=== PATIENT | female | born 1970 | race Caucasian/White ===

== ENCOUNTER 2017-03-07 00:38 | Observation (INO) | payer BC ==
[2017-03-07] MEDS ORDERED: Sodium Chloride 0.9% 1000 ML 1,000 ML IV STA (01:04)
[2017-03-07] MEDS ORDERED: TORAdol 30 mg Injection IV ONE (01:04)
[2017-03-07] MEDS ORDERED: Zofran 4 MG/2 ML VIAL IV ONE (01:04)
[2017-03-07] MEDS ORDERED: TORAdol 30 mg Injection ONE (01:07)
[2017-03-07] MEDS ORDERED: Zofran 4 MG/2 ML VIAL ONE (01:07)
[2017-03-07] MEDS ORDERED: Sodium Chloride 0.9% 1000 ML 1,000 ML ONE (01:08)
--- NOTE | 2017-03-07 01:10 | ERPHSYRPT ---
- History of Present Illness Time Seen by Provider: 03/07/17 01:01 Historian: patient Exam Limitations: no limitations Patient Subjective Stated Complaint: pt states she has been having rt back and groin pain since around midnight. states she thinks shes passing a kidney stone. Triage Nursing Assessment: pt alert and oriented. answers questions approp. skin flushed, moist. respirations nonlabored. lungs cta. abd soft and nontender to palpation. bowel sounds present. no urine assessed at this time. Physician History: 46-year-old white female with history of kidney stones arrives with complaint of right flank pain and right-sided abdominal pain nausea symptoms since midnight she states she feels like she is having a kidney stone she has had a kidney stone in the past. Patient has not had any fever she has had some mild dysuria no hematuria. Past medical history includes , tubal ligation, hernia, D&C. Timing/Duration: today Activities at Onset: none Quality: sharpness Abdominal Pain Onset Location: RLQ, other (right flank) Pain Radiation: RLQ, other (right flank) Severity of Pain-Max: moderate Severity of Pain-Current: moderate Modifying Factors: Improves With: nothing Associated Symptoms: back (right flank pain), nausea, vomiting, No chest pain, No diaphoresis, No diarrhea, No fever/chills, No fatigue, No headache, No heartburn, No loss of appetite, No neck pain, No rash, No shortness of breath, No syncope, No weakness Previous symptoms: same symptoms as today (kidney stone in the past) Allergies/Adverse Reactions: No Known Drug Allergies Allergy (Verified 03/07/17 01:01) Home Medications: Acetaminophen/Pamabrom [Midol Caplet] 1 each PO UD PRN 05/18/14 [History] Hx Tetanus, Diphtheria Vaccination/Date Given: Yes Hx Influenza Vaccination/Date Given: No Hx Pneumococcal Vaccination/Date Given: No Immunizations Up to Date: Yes - Review of Systems Constitutional: No Fever, No Chills Eyes: No Symptoms Ears, Nose, & Throat: No Symptoms Respiratory: No Cough, No Dyspnea Cardiac: No Chest Pain, No Edema, No Syncope Abdominal/Gastrointestinal: Abdominal Pain (Right lateral lower abdominal pain) , Nausea, Vomiting, No Diarrhea, No Constipation, No Hematemesis, No Hematochezia Genitourinary Symptoms: Dysuria, Flank Pain (right flank pain), No Frequency, No Hematuria, No Hesitancy, No Incontinence, No Urgency, No Urinary Retention, No Menorrhagia, No , No Vaginal Bleeding, No Vaginal Discharge, No Vaginal Itching Musculoskeletal: No Back Pain, No Neck Pain Skin: No Rash Neurological: No Dizziness, No Focal Weakness, No Sensory Changes Psychological: No Symptoms Endocrine: No Symptoms All Other Systems: Reviewed and Negative - Past Medical History Pertinent Past Medical History: Yes Neurological History: No Pertinent History ENT History: No Pertinent History Cardiac History: No Pertinent History Respiratory History: No Pertinent History Endocrine Medical History: No Pertinent History Musculoskeletal History: Other GI Medical History: Hernia History: Other Psycho-Social History: No Pertinent History Female Reproductive Disorders: No Pertinent History Other Medical History: KIDNEY STONE, skin ca - Past Surgical History Past Surgical History: Yes Neuro Surgical History: No Pertinent History Cardiac: No Pertinent History Respiratory: No Pertinent History Gastrointestinal: No Pertinent History Genitourinary: Other Musculoskeletal: No Pertinent History Female Surgical History: Section, Tubal Ligation, Other Other Surgical History: HERNIA SURGERY, D/C,kidney stone, - Social History Smoking Status: Former smoker How long have you smoked: 30 yrs Exposure to second hand smoke: Yes Drug Use: none Patient Lives Alone: No - Female History Hx Last Menstrual Period: current Hx Now: No - Nursing Vital Signs Nursing Vital Signs: Initial Vital Signs Temperature 98.7 F Temperature Source Skin Pulse Rate 89 Respiratory Rate 24 Blood Pressure [] 132/79 Pain Intensity 10 - Physical Exam General Appearance: moderate distress, alert, other (well-developed well- nourished white female alert oriented 3) Eye Exam: PERRL/EOMI, eyes nml inspection Ears, Nose, Throat Exam: normal ENT inspection, pharynx normal, moist mucous membranes Neck Exam: normal inspection, non-tender, supple, full range of motion Respiratory Exam: normal breath sounds, lungs clear, No respiratory distress Cardiovascular Exam: regular rate/rhythm, normal heart sounds Gastrointestinal/Abdomen Exam: soft, normal bowel sounds, tenderness (slight right lateral abdominal tenderness lower), No distention, No mass, No guarding, No ecchymosis, No pulsatile mass, No rebound, No hernia, No hepatomegaly, No organomegaly, No splenomegaly, No bruit Back Exam: CVA tenderness (right flank pain with palpation) Extremity Exam: normal inspection, normal range of motion, pelvis stable Neurologic Exam: alert, oriented x 3, cooperative, normal mood/affect, nml cerebellar function, sensation nml, No motor deficits Skin Exam: normal color, warm, dry SpO2 Interpretation: normal (97%) SpO2: 97 Oxygen Delivery: Room Air - Course Nursing assessment & vital signs reviewed: Yes - CT Exams Abdomen/Pelvis CT Interpretation: Tele-radiologist Report, Other (CT abdomen and pelvis without contrast: 4 mm stone present in the distal right uretero vesicular junction, mild right hydronephrosis. Colonic diverticulosis without evidence of diverticulitis) Ordered Tests: Active Orders 24 hr Category Date Time Status IV Insertion STAT Care 03/07/17 00:47 Active ABDOMEN AND PELVIS W/0 CONTRAS [CT] Stat Exams 03/07/17 01:05 Taken CBC W DIFF Stat Lab 03/07/17 01:27 Completed CMP Stat Lab 03/07/17 01:27 Completed CULTURE,URINE Stat Lab 03/07/17 01:29 Received UA W/ MICROSCOPIC Stat Lab 03/07/17 01:29 Completed Medication Summary Generic Name Dose Route Start Last Admin Trade Name Freq PRN Reason Stop Dose Admin Promethazine HCl 12.5 mg 03/07/17 02:57 Phenergan 25 Mg Inj IV 03/07/17 02:58 STAT ONE Discontinued Medications Generic Name Dose Route Start Last Admin Trade Name Freq PRN Reason Stop Dose Admin Fentanyl Citrate 100 mcg 03/07/17 02:18 03/07/17 02:28 Sublimaze 100 Mcg/2 Ml IV 03/07/17 02:19 100 mcg STAT ONE Administration Fentanyl Citrate Confirm 03/07/17 02:28 Sublimaze 100 Mcg/2 Ml Administered 03/07/17 02:29 Dose 100 mcg .ROUTE .STK-MED ONE Sodium Chloride 1,000 mls @ 999 mls/hr 03/07/17 01:04 03/07/17 01:21 Sodium Chloride 0.9% 1000 Ml IV 03/07/17 02:04 999 mls/hr .Q1H1M STA Administration Sodium Chloride Confirm 03/07/17 01:08 Sodium Chloride 0.9% 1000 Ml Administered 03/07/17 01:09 Dose 1,000 mls @ ud .ROUTE .STK-MED ONE Ketorolac Tromethamine 30 mg 03/07/17 01:04 03/07/17 01:09 Toradol 30 Mg Injection IV 03/07/17 01:05 30 mg STAT ONE Administration Ketorolac Tromethamine Confirm 03/07/17 01:07 Toradol 30 Mg Injection Administered 03/07/17 01:08 Dose 30 mg .ROUTE .STK-MED ONE Ondansetron HCl 4 mg 03/07/17 01:04 03/07/17 01:09 Zofran 4 Mg/2 Ml Vial IV 03/07/17 01:05 4 mg STAT ONE Administration Ondansetron HCl Confirm 03/07/17 01:07 Zofran 4 Mg/2 Ml Vial Administered 03/07/17 01:08 Dose 4 mg .ROUTE .STK-MED ONE Lab/Rad Data: Laboratory Result Diagrams 03/07/17 01:27 03/07/17 01:27 Laboratory Results 03/07/17 03/07/17 03/07/17 Range/Units 01:29 01:27 01:27 WBC 9.0 (4.0-10.5) K/mm3 RBC 4.44 (4.1-5.4) M/mm3 Hgb 11.8 L (12.0-16.0) gm/dl Hct 37.8 (35-47) % MCV 85.1 (78-100) fl MCH 26.5 (26-32) pg MCHC 31.2 L (32-36) g/dl RDW 14.7 H (11.5-14.0) % Plt Count 312 (150-450) K/mm3 MPV 9.8 H (6-9.5) fl Gran % 67.1 H (36.0-66.0) % Lymphocytes % 22.8 L (24.0-44.0) % Monocytes % 7.5 (0.0-12.0) % Eosinophils % 2.3 (0.00-5.0) % Basophils % 0.3 (0.0-0.4) % Basophils # 0.03 (0-0.4) Sodium 142 (136-145) mEq/L Potassium 3.6 (3.5-5.1) mEq/L Chloride 106 (98-107) mEq/L Carbon Dioxide 24.7 (21-32) mEq/L Anion Gap 15.0 (5-15) MEQ/L BUN 11 (9-20) mg/dL Creatinine 0.87 (0.55-1.30) mg/dl Estimated GFR > 60 ML/MIN Glucose 107 (70-110) MG/DL Calcium 8.9 (8.5-10.1) mg/dL Total Bilirubin 0.1 L (0.2-1.0) mg/dL AST 18 (15-37) U/L ALT 31 (12-78) U/L Alkaline Phosphatase 120 H (46-116) U/L Serum Total Protein 6.7 (6.4-8.2) gm/dL Albumin 3.5 (3.4-5.0) g/dL Ur Collection Type CLEAN CATCH Urine Color YELLOW (YELLOW) Urine Appearance SLIGHTLY CLOUDY (CLEAR) Urine pH 5.0 (5-6) Ur Specific Clio >=1.030 (1.005-1.025) Urine Protein TRACE (Negative) Urine Glucose (UA) NEGATIVE (NEGATIVE) mg/dL Urine Ketones NEGATIVE (NEGATIVE) Urine Nitrite NEGATIVE (NEGATIVE) Urine Bilirubin NEGATIVE (NEGATIVE) Urine Urobilinogen 0.2 (0-1) mg/dL Urine WBC (Auto) NEGATIVE (NEGATIVE) Urine RBC (Auto) LARGE (0-5) Geovanny/ul Urine Microscopic RBC 25-50 (0-2) /HPF Urine Microscopic WBC 0-2 (0-5) /HPF Ur Epithelial Cells MODERATE (FEW) /HPF Urine Bacteria MODERATE (NEGATIVE) /HPF Urine Mucus MODERATE (NEGATIVE) /HPF Specimen Received 03/07/17 0130 - Progress Progress: improved Progress Note: 03/07/17 02:59 46-year-old white female patient of Dr. Morelos with complaint of pain in the right lateral lower abdomen and right flank since tonight Patient with a history kidney stones states the pain feels like a kidney stones plication with 25-50 red cells in her urine Patient also with a 4 mm stone present in the distal right ureter at the ureterovesicular junction with mild right hydronephrosis. As well as colonic diverticulosis without evidence of diverticulitis on CT scan. Patient is given Toradol 30 mg IV Zofran and 1 L of normal saline with improvement. However patient now is complaining of pain again in the right lower abdomen. CT of the abdomen shows a normal appendix. Patient has had a tubal ligation. Patient initially stated that morphine "makes me burn. Therefore I gave her fentanyl 100 mg IV. Patient feels like this is not improving her symptoms and is nauseous. Will add Phenergan as well. I have discussed the case with Dr. Wei, will place patient on observation diagnoses right flank right lower abdominal pain. Urolithiasis. Had discussed possible dialog at however when talking with the patient again patient stated that morphine "knocks me out" She really doesn't have any type of allergy to it. Will try morphine with this patient. Will place patient on observation IV fluids strain urine. - Departure Time of Disposition: 03:02 Departure Disposition: Observation Clinical Impression: Right flank pain, Right lower quadrant abdominal pain Urolithiasis Qualifiers: Urinary calculus location: ureter Qualified Code(s): N20.1 - Calculus of ureter Condition: Fair Critical Care Time: No
[2017-03-07 01:30] LABS: BASOPHIL % 0.3 % (0.0-0.4); Eosinophil % 2.3 % (0.00-5.0); Granulocytes % 67.1 % (36.0-66.0); Lymphocytes % 22.8 % (24.0-44.0); Mean Cell Volume 85.1 fl (78-100); Mean Platelet Volume 9.8 fl (6-9.5); Monocytes % 7.5 % (0.0-12.0); Platelet Count 312 K/mm3 (150-450); Red Blood Count 4.44 M/mm3 (4.1-5.4); Red Cell Distribution Width 14.7 % (11.5-14.0)
[2017-03-07 01:31] LABS: Mean Corpuscular Hemoglobin 26.5 pg (26-32)
[2017-03-07 01:46] LABS: ADD URINE CULTURE? YES (NO); Bacteria MODERATE /HPF (NEGATIVE); COMPLETE URINE MICROSCOPIC? YES; Collection Type CLEAN CATCH; Epithelial Cells MODERATE /HPF (FEW); Mucus MODERATE /HPF (NEGATIVE); WBC 0-2 /HPF (0-5)
[2017-03-07 01:53] LABS: ALBUMIN 3.5 g/dL (3.4-5.0); ALKALINE PHOSPHATASE 120 U/L (46-116); BILIRUBIN,TOTAL 0.1 mg/dL (0.2-1.0); BLOOD UREA NITROGEN 11 mg/dL (9-20); CHLORIDE 106 mEq/L (98-107); Carbon Dioxide 24.7 mEq/L (21-32); Glucose 107 MG/DL (70-110); Potassium 3.6 mEq/L (3.5-5.1); SGOT/AST 18 U/L (15-37); SGPT/ALT 31 U/L (12-78); SODIUM 142 mEq/L (136-145); Total Protein 6.7 gm/dL (6.4-8.2)
[2017-03-07] MEDS ORDERED: SUBLIMAZE 100 MCG/2 ML IV ONE (02:18)
[2017-03-07] MEDS ORDERED: SUBLIMAZE 100 MCG/2 ML ONE (02:28)
[2017-03-07] MEDS ORDERED: Phenergan 25 MG INJ IV ONE (02:57)
[2017-03-07] MEDS ORDERED: Flomax 0.4 MG PO STA (02:58)
[2017-03-07] MEDS ORDERED: MORPHINE SULFATE 4 MG INJ IV ONE (03:04)
[2017-03-07] MEDS ORDERED: Flomax 0.4 MG ONE (03:08)
[2017-03-07] MEDS ORDERED: Phenergan 25 MG INJ ONE (03:08)
[2017-03-07] MEDS ORDERED: MORPHINE SULFATE 4 MG INJ ONE (03:08)
[2017-03-07] MEDS ORDERED: MORPHINE SULFATE 4 MG INJ IV PRN (03:40)
[2017-03-07] MEDS ORDERED: Zofran 4 MG/2 ML VIAL IV PRN (03:40)
[2017-03-07] MEDS: Sodium Chloride 0.9% 1000 ML 1,000 ML IV SCH ×3 (04:35→22:05)
[2017-03-07 06:33] LABS: ALBUMIN 3.3 g/dL (3.4-5.0); ALKALINE PHOSPHATASE 107 U/L (46-116); ANION GAP 13.3 MEQ/L (5-15); BILIRUBIN,TOTAL 0.2 mg/dL (0.2-1.0); BLOOD UREA NITROGEN 11 mg/dL (9-20); CHLORIDE 107 mEq/L (98-107); Carbon Dioxide 24.7 mEq/L (21-32); Glucose 121 MG/DL (70-110); Potassium 4.1 mEq/L (3.5-5.1); SGOT/AST 20 U/L (15-37); SGPT/ALT 29 U/L (12-78); SODIUM 141 mEq/L (136-145); Total Protein 6.2 gm/dL (6.4-8.2)
[2017-03-07 06:41] LABS: BASOPHIL % 0.2 % (0.0-0.4); Eosinophil % 0.7 % (0.00-5.0); Granulocytes % 78.1 % (36.0-66.0); Lymphocytes % 15.2 % (24.0-44.0); Mean Corpuscular Hemoglobin 26.3 pg (26-32); Mean Platelet Volume 10.2 fl (6-9.5); Monocytes % 5.8 % (0.0-12.0); Platelet Count 309 K/mm3 (150-450); Red Blood Count 4.29 M/mm3 (4.1-5.4); Red Cell Distribution Width 14.7 % (11.5-14.0); White Blood Count 12.7 K/mm3 (4.0-10.5)
--- NOTE | 2017-03-07 09:02 | PCM.HP ---
History of Present Illness - Chief Complaint Chief Complaint: right flank pain History of Present Illness: is a 46 year old female who presented to the ER last night with right flank and right lower abdominal pain, came on suddenly. Sharp and severe pain with associated nausea, no bowel changes, has a hx of kidney stones with similar symptoms in the past. CT confirmed 4mm rt UVJ stone. - Review of Systems Constitutional: No Fever, No Chills Respiratory: No Cough, No Short Of Breath Cardiac: No Chest Pain, No Edema, No Syncope Abdominal/Gastrointestinal: Abdominal Pain Musculoskeletal: Back Pain Skin: No Rash Neurological: No Dizziness, No Focal Weakness, No Sensory Changes All Other Systems: Reviewed and Negative Medications & Allergies Home Medications: Home Medication List Acetaminophen/Pamabrom [Midol Caplet] 1 each PO UD PRN 05/18/14 [History Confirmed 03/07/17] Allergies/Adverse Reactions: Allergies Allergy/AdvReac Type Severity Reaction Status Date / Time No Known Drug Allergies Allergy Verified 03/07/17 01:01 - Past Medical History Past Medical History: Yes Neurological History: No Pertinent History ENT History: No Pertinent History Cardiac History: No Pertinent History Respiratory History: No Pertinent History Endocrine Medical History: No Pertinent History Musculoskelatal History: Other GI Medical History: Hernia History: Other Pyscho-Social History: No Pertinent History Reproductive Disorders: No Pertinent History Comment: KIDNEY STONE, skin ca - Female History Hx Last Menstrual Period: current Are you now?: No - Past Surgical History Past Surgical History: Yes Neuro Surgical History: No Pertinent History Cardiac History: No Pertinent History Respiratory Surgery: No Pertinent History GI Surgical History: No Pertinent History Genitourinary Surgical Hx: Other Musculskeletal Surgical Hx: No Pertinent History Female Surgical History: Section, Tubal Ligation, Other Other Surgical History: HERNIA SURGERY, D/C,kidney stone, - Social History Smoking Status: Never smoker How long have you smoked: 30 yrs Exposure to second hand smoke: No Alcohol: Occasionally Drug Use: none - Physical Exam Vital Signs: Vital Signs - 24 hr Temp Pulse Resp BP Pulse Ox 03/07/17 07:13 98.4 F 89 18 138/81 93 L 03/07/17 03:56 96 03/07/17 03:39 98.7 F 82 16 137/65 95 03/07/17 03:09 74 16 122/73 98 03/07/17 03:03 97 03/07/17 00:40 98.7 F 89 24 132/79 97 General Appearance: no apparent distress, alert Neurologic Exam: alert, oriented x 3, cooperative, normal mood/affect, nml cerebellar function, nml station & gait, sensation nml, No motor deficits Eye Exam: PERRL/EOMI, eyes nml inspection Respiratory Exam: normal breath sounds, lungs clear, No respiratory distress Cardiovascular Exam: regular rate/rhythm, normal heart sounds, normal peripheral pulses Gastrointestinal/Abdomen Exam: soft, normal bowel sounds, No tenderness, No mass Back Exam: normal inspection Extremity Exam: normal inspection, normal range of motion, pelvis stable Skin Exam: normal color, warm, dry, No rash Results - Labs Lab/Micro Results: Lab Results-Last 24 Hours 03/07/17 03/07/17 Range/Units 05:45 05:45 WBC 12.7 H (4.0-10.5) K/mm3 RBC 4.29 (4.1-5.4) M/mm3 Hgb 11.3 L (12.0-16.0) gm/dl Hct 36.9 (35-47) % MCV 86.0 (78-100) fl MCH 26.3 (26-32) pg MCHC 30.6 L (32-36) g/dl RDW 14.7 H (11.5-14.0) % Plt Count 309 (150-450) K/mm3 MPV 10.2 H (6-9.5) fl Gran % 78.1 H (36.0-66.0) % Lymphocytes % 15.2 L (24.0-44.0) % Monocytes % 5.8 (0.0-12.0) % Eosinophils % 0.7 (0.00-5.0) % Basophils % 0.2 (0.0-0.4) % Basophils # 0.03 (0-0.4) Sodium 141 (136-145) mEq/L Potassium 4.1 (3.5-5.1) mEq/L Chloride 107 (98-107) mEq/L Carbon Dioxide 24.7 (21-32) mEq/L Anion Gap 13.3 (5-15) MEQ/L BUN 11 (9-20) mg/dL Creatinine 0.95 (0.55-1.30) mg/dl Estimated GFR > 60 ML/MIN Glucose 121 H (70-110) MG/DL Calcium 8.4 L (8.5-10.1) mg/dL Total Bilirubin 0.2 (0.2-1.0) mg/dL AST 20 (15-37) U/L ALT 29 (12-78) U/L Alkaline Phosphatase 107 (46-116) U/L Serum Total Protein 6.2 L (6.4-8.2) gm/dL Albumin 3.3 L (3.4-5.0) g/dL Assessment/Plan (1) Ureteral stone with hydronephrosis Current Visit: Yes Status: Acute Assessment & Plan: continue IV fluids, pain and nausea not well controlled. change to dilaudid and phenergan, try toradol prn as well Code(s): N13.2 - HYDRONEPHROSIS WITH RENAL AND URETERAL CALCULOUS OBSTRUCTION
[2017-03-07] MEDS: Phenergan 25 MG INJ IV PRN ×3 (09:14→19:34)
[2017-03-07] MEDS: TORAdol 30 mg Injection IV PRN (09:15)
--- NOTE | 2017-03-07 09:44 | XRAY ---
Indication: Right flank pain. Nausea and vomiting. Multiple contiguous axial images obtained through the abdomen and pelvis without contrast using renal stone protocol. Comparison: June 16, 2013. Lung bases demonstrates minimal right middle lobe and inferior lingular atelectasis/scarring. Heart is not enlarged. Stable small hiatal hernia. New 3-4 mm right UVJ calculus. More proximal right ureter is slightly prominent along with mild hydronephrosis consistent with partial obstructive uropathy. There remains a few bilateral renal micro-calculi, largest on the right measuring 5-6 mm. Noncontrasted stomach and bowel loops appear nonobstructed. Normal appendix. Minimal descending diverticulosis. Again cervical nabothian cysts and calcified uterine fibroid. Liver remains diffusely fatty with again 2 hepatic cysts. The larger cyst in the right lobe has slightly increased in size today measuring 2 cm. Stable punctate left adrenal calcification. Remaining liver, gallbladder, pancreas, spleen, adrenal glands, kidneys, ureters, bladder, and aorta appear unremarkable for noncontrast exam. Osseous structures intact. Stable small fatty umbilical hernia. Impression: 1. New 3-4 mm right UVJ calculus producing partial obstruction as detailed. Additional bilateral renal micro-calculi. 2. Again 2 hepatic cysts. Right lobe cyst slightly larger. 3. Stable hiatal hernia, fatty liver, colonic diverticulosis, benign punctate left adrenal calcification, cervical nabothian cysts, calcified uterine fibroid, and small fatty umbilical hernia. Comment: Preliminary interpretation was made by [facility]. No critical discrepancy. CT DI 28.13
[2017-03-07] MEDS: DILAUDID 2 MG INJECTION IV PRN ×2 (13:55→19:35)
[2017-03-08] MEDS: DILAUDID 2 MG INJECTION IV PRN ×2 (03:45→10:36)
[2017-03-08] MEDS: Sodium Chloride 0.9% 1000 ML 1,000 ML IV SCH (06:01)
[2017-03-08 06:15] LABS: BASOPHIL % 0.3 % (0.0-0.4); Eosinophil % 0.7 % (0.00-5.0); Granulocytes % 74.3 % (36.0-66.0); Lymphocytes % 16.1 % (24.0-44.0); Mean Cell Volume 85.8 fl (78-100); Mean Corpuscular Hemoglobin 26.5 pg (26-32); Mean Platelet Volume 9.8 fl (6-9.5); Monocytes % 8.6 % (0.0-12.0); Platelet Count 257 K/mm3 (150-450); Red Blood Count 3.81 M/mm3 (4.1-5.4); Red Cell Distribution Width 14.5 % (11.5-14.0); White Blood Count 11.1 K/mm3 (4.0-10.5)
[2017-03-08 06:48] LABS: ALBUMIN 2.7 g/dL (3.4-5.0); ANION GAP 11.8 MEQ/L (5-15); BILIRUBIN,TOTAL 0.2 mg/dL (0.2-1.0); Carbon Dioxide 23.2 mEq/L (21-32); Potassium 3.9 mEq/L (3.5-5.1); Total Protein 5.6 gm/dL (6.4-8.2)
--- NOTE | 2017-03-08 07:59 | PCM.NOTE ---
Date and Time: 03/08/17 0757 Subjective Assessment: patient still having significant flank pain and right lower abdomen pain, has not passed a stone Objective Exam General Appearance: no apparent distress, alert Respiratory Exam: normal breath sounds, lungs clear, No respiratory distress Cardiovascular Exam: regular rate/rhythm, normal heart sounds Gastrointestinal/Abdomen Exam: soft, No tenderness, No mass Extremity Exam: normal inspection, normal range of motion OBJECTIVE DATA Vital Signs: Vital Signs - 24 hr Temp Pulse Resp BP Pulse Ox 03/08/17 07:33 99.2 F 84 20 167/77 90 L 03/08/17 04:05 98.8 F 88 14 137/75 93 L 03/08/17 00:00 98.4 F 85 14 136/64 93 L 03/07/17 20:10 98.5 F 84 14 132/72 96 03/07/17 16:23 98.7 F 83 20 115/65 95 03/07/17 12:00 98.5 F 88 18 147/75 92 L Pain Assessment - Last Documented Pain Intensity 6 Pain Scale Used 0-10 Pain Scale Intake and Output: Intake & Output 03/05/17 03/06/17 03/07/17 03/08/17 11:59 11:59 11:59 11:59 Intake Total 3316 Output Total 250 350 Balance -250 2966 Weight 99.881 kg Lab Results: Lab Results-Last 24 Hours 03/08/17 03/08/17 Range/Units 05:20 05:20 WBC 11.1 H (4.0-10.5) K/mm3 RBC 3.81 L (4.1-5.4) M/mm3 Hgb 10.1 L (12.0-16.0) gm/dl Hct 32.7 L (35-47) % MCV 85.8 (78-100) fl MCH 26.5 (26-32) pg MCHC 30.9 L (32-36) g/dl RDW 14.5 H (11.5-14.0) % Plt Count 257 (150-450) K/mm3 MPV 9.8 H (6-9.5) fl Gran % 74.3 H (36.0-66.0) % Lymphocytes % 16.1 L (24.0-44.0) % Monocytes % 8.6 (0.0-12.0) % Eosinophils % 0.7 (0.00-5.0) % Basophils % 0.3 (0.0-0.4) % Basophils # 0.03 (0-0.4) Sodium 138 (136-145) mEq/L Potassium 3.9 (3.5-5.1) mEq/L Chloride 107 (98-107) mEq/L Carbon Dioxide 23.2 (21-32) mEq/L Anion Gap 11.8 (5-15) MEQ/L BUN 10 (9-20) mg/dL Creatinine 1.10 (0.55-1.30) mg/dl Estimated GFR 56 ML/MIN Glucose 100 (70-110) MG/DL Calcium 8.0 L (8.5-10.1) mg/dL Total Bilirubin 0.20 (0.2-1.0) mg/dL AST 15 (15-37) U/L ALT 22 (12-78) U/L Alkaline Phosphatase 98 (46-116) U/L Serum Total Protein 5.6 L (6.4-8.2) gm/dL Albumin 2.7 L (3.4-5.0) g/dL Assessment/Plan (1) Ureteral stone with hydronephrosis Current Visit: Yes Status: Acute Assessment & Plan: continues to have pain and significant nausea, will consult with urology Code(s): N13.2 - HYDRONEPHROSIS WITH RENAL AND URETERAL CALCULOUS OBSTRUCTION
[2017-03-08] MEDS: Phenergan 25 MG INJ IV PRN (09:50)
[2017-03-08] MEDS: TORAdol 30 mg Injection IV PRN (09:51)
[2017-03-08 16:25] VITALS: BP 135/69; PULSE 77; O2SAT 94
[2017-03-08 20:56] LABS: Calculi Composition See Result Note:
== END 2017-03-08 16:37 | disposition short-term general hospital (02) ==
LOC: ED 00:38 → MED SURG 03:38
PROVIDERS: ADMIT Family Medicine; ATTEND Family Medicine
DX: N13.2 Hydronephrosis with renal and ureteral calculous obstruction (principal); Z87.442 Personal history of urinary calculi; Z85.828 Personal history of other malignant neoplasm of skin
CPT/HCPCS: 36000; 36415; 74176; 80053; 81000; 82360; 85025; 87086; 94760; 96360; 96365; 96367; 96374; 96375; 99285; G0378; J1170; J1885; J2270; J2405; J2550; J3010; A9270-GY

== ENCOUNTER 2017-03-11 01:34 | Emergency (ER) | payer BC ==
[2017-03-11] MEDS ORDERED: Phenergan 25 MG INJ IV ONE (01:57)
[2017-03-11] MEDS ORDERED: TORAdol 30 mg Injection IV ONE (01:57)
[2017-03-11] MEDS ORDERED: Sodium Chloride 0.9% 1000 ML 1,000 ML IV STA (01:57)
--- NOTE | 2017-03-11 02:05 | ERPHSYRPT ---
- History of Present Illness Time Seen by Provider: 03/11/17 01:48 Historian: patient Exam Limitations: no limitations Patient Subjective Stated Complaint: pt was admitted here last sunday and then [facility] dr pelayo remved a stone and placed a stent - the stent came out sunday and the pt went to the reg for pain control and then tonight the pain is back and she is vomiting and can't keep her pain meds down - she states there is some blood on the tissue when she wipes unknown if fever pain is in the center of lower back Triage Nursing Assessment: pt is awake and alert and able to answer questions moaning at times with the pain Physician History: FOR THE PAST 5 HOURS PT HAS HAD RIGHT FLANK PAIN, VOMITING X8, SORE THROAT, SUBJECTIVE FEVER, CHILLS AND DIAPHORESIS; FOR ABOUT THE PAST HOUR CHEST PAIN AND SHORTNESS OF AIR. 5 DAYS AGO PT STARTED WITH RIGHT RENAL COLIC. AT [facility] DR PELAYO REMOVED THE STONE AND PLACED A STENT. PT ACCIDENTALLY PULLED THE STENT OUT 2 DAYS AGO. Allergies/Adverse Reactions: No Known Drug Allergies Allergy (Verified 03/07/17 01:01) Home Medications: Levofloxacin [Levaquin] 0 mg DAILY 03/11/17 [History] Hx Tetanus, Diphtheria Vaccination/Date Given: Yes Hx Influenza Vaccination/Date Given: No Hx Pneumococcal Vaccination/Date Given: No - Review of Systems Constitutional: Fever, Chills Ears, Nose, & Throat: Throat Pain Respiratory: Dyspnea Cardiac: Chest Pain Abdominal/Gastrointestinal: Vomiting, Other (RIGHT FLANK PAIN) Endocrine: Excessive Sweating All Other Systems: Reviewed and Negative - Past Medical History Pertinent Past Medical History: Yes Neurological History: No Pertinent History ENT History: No Pertinent History Cardiac History: No Pertinent History Respiratory History: No Pertinent History Endocrine Medical History: No Pertinent History Musculoskeletal History: Other GI Medical History: Hernia History: Other Psycho-Social History: No Pertinent History Female Reproductive Disorders: No Pertinent History Other Medical History: KIDNEY STONE, skin ca - Past Surgical History Past Surgical History: Yes Neuro Surgical History: No Pertinent History Cardiac: No Pertinent History Respiratory: No Pertinent History Gastrointestinal: No Pertinent History Genitourinary: Other Musculoskeletal: No Pertinent History Female Surgical History: Section, Tubal Ligation, Other Other Surgical History: HERNIA SURGERY, D/C,kidney stone, - Social History Smoking Status: Never smoker How long have you smoked: 30 yrs Exposure to second hand smoke: No Drug Use: none Patient Lives Alone: No - Female History Hx Last Menstrual Period: unknown Hx Now: No - Nursing Vital Signs Nursing Vital Signs: Initial Vital Signs Temperature 99 F Temperature Source Oral Pulse Rate 68 Respiratory Rate 16 Blood Pressure [Right Arm] 118/78 Pain Intensity 5 - Physical Exam General Appearance: alert Eye Exam: PERRL/EOMI Ears, Nose, Throat Exam: pharynx normal, moist mucous membranes Neck Exam: normal inspection Respiratory Exam: lungs clear Cardiovascular Exam: normal heart sounds Gastrointestinal/Abdomen Exam: soft, normal bowel sounds Back Exam: normal inspection Extremity Exam: normal inspection, No pedal edema Neurologic Exam: alert, cooperative Skin Exam: warm, dry SpO2 Interpretation: normal SpO2: 99 Oxygen Delivery: Room Air - Course Nursing assessment & vital signs reviewed: Yes EKG Interpreted by Me: RATE (72), Sinus Rhythm, NORMAL AXIS, NORMAL INTERVALS - Radiology Exams Chest X-ray Interpretation: Interpreted by me, No Pneumonia - CT Exams Abdomen/Pelvis CT Interpretation: Tele-radiologist Report (MILD RIGHT HYDROURETERONEPHROSIS WITHOUT EVIDENCE OF OBSTRUCTIVE UROLITHIASIS. NONOBSTRUCTING RIGHT RENAL CALCULI. SMALL FOCI OF GAS WITHIN RIGHT RENAL CALYCES AND URINARY BLADDER, POSSIBLY RELATED TO RECENT URETERAL STENT. CORRELATION WITH URINALYSIS/URINE CULTURE RECOMMENDED TO EXCLUDE EMPHYSEMATOUS PYELITIS/CYSTITIS. HEPATIC STEATOSIS. COLONIC DIVERTICULOSIS WITHOUT RADIOGRAPHIC EVIDENCE OF ACUTE DIVERTICULITIS. ) Ordered Tests: Active Orders 24 hr Category Date Time Status Clean Catch Urine Specimen STAT Care 03/11/17 01:57 Active EKG-ER Only STAT Care 03/11/17 01:57 Active IV Insertion STAT Care 03/11/17 01:57 Active ABDOMEN AND PELVIS W/0 CONTRAS [CT] Stat Exams 03/11/17 02:37 Taken CHEST 1 VIEW (PORTABLE) Stat Exams 03/11/17 01:57 Taken AMYLASE Stat Lab 03/11/17 02:10 Completed CBC W DIFF Stat Lab 03/11/17 02:10 Completed CMP Stat Lab 03/11/17 02:10 Completed HCG QUALITATIVE,SERUM Stat Lab 03/11/17 02:10 Completed LIPASE Stat Lab 03/11/17 02:10 Completed MAG [MAGNESIUM] Stat Lab 03/11/17 02:10 Completed TROPONIN Stat Lab 03/11/17 02:10 Completed UA W/ MICROSCOPIC Stat Lab 03/11/17 02:10 Completed Urine Triage Profile Stat Lab 03/11/17 02:10 Completed Medication Summary Discontinued Medications Generic Name Dose Route Start Last Admin Trade Name Rangel PRN Reason Stop Dose Admin Sodium Chloride 1,000 mls @ 999 mls/hr 03/11/17 01:57 03/11/17 02:13 Sodium Chloride 0.9% 1000 Ml IV 03/11/17 02:57 999 mls/hr .Q1H1M STA Administration Sodium Chloride Confirm 03/11/17 02:07 Sodium Chloride 0.9% 1000 Ml Administered 03/11/17 02:08 Dose 1,000 mls @ ud .ROUTE .STK-MED ONE Ketorolac Tromethamine 30 mg 03/11/17 01:57 03/11/17 02:13 Toradol 30 Mg Injection IV 03/11/17 01:58 30 mg STAT ONE Administration Ketorolac Tromethamine Confirm 03/11/17 02:07 Toradol 30 Mg Injection Administered 03/11/17 02:08 Dose 30 mg .ROUTE .STK-MED ONE Morphine Sulfate 2 mg 03/11/17 02:35 03/11/17 02:38 Morphine Sulfate 2 Mg Inj IV 03/11/17 02:36 2 mg STAT ONE Administration Morphine Sulfate Confirm 03/11/17 02:36 Morphine Sulfate 2 Mg Inj Administered 03/11/17 02:37 Dose 2 mg .ROUTE .STK-MED ONE Promethazine HCl 12.5 mg 03/11/17 01:57 03/11/17 02:12 Phenergan 25 Mg Inj IV 03/11/17 01:58 12.5 mg STAT ONE Administration Promethazine HCl Confirm 03/11/17 02:07 Phenergan 25 Mg Inj Administered 03/11/17 02:08 Dose 25 mg .ROUTE .STK-MED ONE Lab/Rad Data: Laboratory Result Diagrams 03/11/17 02:10 03/11/17 02:10 Laboratory Results 03/11/17 03/11/17 03/11/17 Range/Units 02:10 02:10 02:10 WBC (4.0-10.5) K/mm3 RBC (4.1-5.4) M/mm3 Hgb (12.0-16.0) gm/dl Hct (35-47) % MCV (78-100) fl MCH (26-32) pg MCHC (32-36) g/dl RDW (11.5-14.0) % Plt Count (150-450) K/mm3 MPV (6-9.5) fl Gran % (36.0-66.0) % Lymphocytes % (24.0-44.0) % Monocytes % (0.0-12.0) % Eosinophils % (0.00-5.0) % Basophils % (0.0-0.4) % Basophils # (0-0.4) Sodium 141 (136-145) mEq/L Potassium 3.4 L (3.5-5.1) mEq/L Chloride 104 (98-107) mEq/L Carbon Dioxide 23.4 (21-32) mEq/L Anion Gap 16.7 H (5-15) MEQ/L BUN 9 (9-20) mg/dL Creatinine 0.92 (0.55-1.30) mg/dl Estimated GFR > 60 ML/MIN Glucose 111 H (70-110) MG/DL Calcium 9.1 (8.5-10.1) mg/dL Magnesium 1.7 L (1.8-2.4) mg/dL Total Bilirubin 0.20 (0.2-1.0) mg/dL AST 14 L (15-37) U/L ALT 21 (12-78) U/L Alkaline Phosphatase 96 (46-116) U/L Troponin I < 0.017 (0.000-0.056) ng/ml Serum Total Protein 6.4 (6.4-8.2) gm/dL Albumin 2.9 L (3.4-5.0) g/dL Amylase 33 (25-115) U/L Lipase 88 (73-393) U/L Serum , Qual NEGATIVE (Negative) Ur Collection Type Urine Color (YELLOW) Urine Appearance (CLEAR) Urine pH (5-6) Ur Specific [place] (1.005-1.025) Urine Protein (Negative) Urine Glucose (UA) (NEGATIVE) mg/dL Urine Ketones (NEGATIVE) Urine Nitrite (NEGATIVE) Urine Bilirubin (NEGATIVE) Urine Urobilinogen (0-1) mg/dL Urine WBC (Auto) (NEGATIVE) Urine RBC (Auto) (0-5) Geovanny/ul Urine Microscopic RBC (0-2) /HPF Urine Microscopic WBC (0-5) /HPF Ur Epithelial Cells (FEW) /HPF Urine Bacteria (NEGATIVE) /HPF Hyaline Casts (0-2) /LPF Urine Opiates Level (NEGATIVE) Ur Methadone (NEGATIVE) Urine Barbiturates (NEGATIVE) Ur Phencyclidine (PCP) (NEGATIVE) Urine Amphetamine (NEGATIVE) U Benzodiazepine Level (NEGATIVE) Urine Cocaine (NEGATIVE) Urine Marijuana (THC) (NEGATIVE) Specimen Received 03/11/17 03/11/17 03/11/17 Range/Units 02:10 02:10 02:10 WBC 12.7 H (4.0-10.5) K/mm3 RBC 3.95 L (4.1-5.4) M/mm3 Hgb 10.3 L (12.0-16.0) gm/dl Hct 33.6 L (35-47) % MCV 85.1 (78-100) fl MCH 26.0 (26-32) pg MCHC 30.7 L (32-36) g/dl RDW 14.7 H (11.5-14.0) % Plt Count 309 (150-450) K/mm3 MPV 9.5 (6-9.5) fl Gran % 79.0 H (36.0-66.0) % Lymphocytes % 10.2 L (24.0-44.0) % Monocytes % 8.5 (0.0-12.0) % Eosinophils % 2.1 (0.00-5.0) % Basophils % 0.2 (0.0-0.4) % Basophils # 0.03 (0-0.4) Sodium (136-145) mEq/L Potassium (3.5-5.1) mEq/L Chloride (98-107) mEq/L Carbon Dioxide (21-32) mEq/L Anion Gap (5-15) MEQ/L BUN (9-20) mg/dL Creatinine (0.55-1.30) mg/dl Estimated GFR ML/MIN Glucose (70-110) MG/DL Calcium (8.5-10.1) mg/dL Magnesium (1.8-2.4) mg/dL Total Bilirubin (0.2-1.0) mg/dL AST (15-37) U/L ALT (12-78) U/L Alkaline Phosphatase (46-116) U/L Troponin I (0.000-0.056) ng/ml Serum Total Protein (6.4-8.2) gm/dL Albumin (3.4-5.0) g/dL Amylase (25-115) U/L Lipase (73-393) U/L Serum , Qual (Negative) Ur Collection Type CLEAN CATCH Urine Color YELLOW (YELLOW) Urine Appearance CLEAR (CLEAR) Urine pH 5.5 (5-6) Ur Specific [place] 1.025 (1.005-1.025) Urine Protein 100 (Negative) Urine Glucose (UA) NEGATIVE (NEGATIVE) mg/dL Urine Ketones NEGATIVE (NEGATIVE) Urine Nitrite NEGATIVE (NEGATIVE) Urine Bilirubin NEGATIVE (NEGATIVE) Urine Urobilinogen 0.2 (0-1) mg/dL Urine WBC (Auto) NEGATIVE (NEGATIVE) Urine RBC (Auto) LARGE (0-5) Geovanny/ul Urine Microscopic RBC 50-100 (0-2) /HPF Urine Microscopic WBC 0-2 (0-5) /HPF Ur Epithelial Cells FEW (FEW) /HPF Urine Bacteria RARE (NEGATIVE) /HPF Hyaline Casts 0-2 (0-2) /LPF Urine Opiates Level POS. (NEGATIVE) Ur Methadone NEG. (NEGATIVE) Urine Barbiturates NEG. (NEGATIVE) Ur Phencyclidine (PCP) NEG. (NEGATIVE) Urine Amphetamine NEG. (NEGATIVE) U Benzodiazepine Level NEG. (NEGATIVE) Urine Cocaine NEG. (NEGATIVE) Urine Marijuana (THC) NEG. (NEGATIVE) Specimen Received [id number] - Departure Time of Disposition: 03:59 Departure Disposition: Home Clinical Impression: RIGHT FLANK PAIN, VOMITING, CHEST PAIN, MILD HYPOKALEMIA, MILD HYPOMAGNESEMIA Condition: Fair Critical Care Time: No Instructions: Vomiting -- Adult, Kidney Stones, Chest Pain Additional Instructions: FOLLOW UP WITH DR PELAYO OR PRIVATE DOCTOR TOMORROW. Prescriptions: Promethazine HCl 25 mg [Phenergan 25 mg] 25 mg PO Q4H PRN PRN #14 tablet PRN Reason: Nausea/Vomiting
[2017-03-11] MEDS ORDERED: Phenergan 25 MG INJ ONE (02:07)
[2017-03-11] MEDS ORDERED: TORAdol 30 mg Injection ONE (02:07)
[2017-03-11] MEDS ORDERED: Sodium Chloride 0.9% 1000 ML 1,000 ML ONE (02:07)
[2017-03-11 02:20] LABS: BASOPHIL % 0.2 % (0.0-0.4); Eosinophil % 2.1 % (0.00-5.0); Lymphocytes % 10.2 % (24.0-44.0); Mean Cell Volume 85.1 fl (78-100); Mean Platelet Volume 9.5 fl (6-9.5); Monocytes % 8.5 % (0.0-12.0); Platelet Count 309 K/mm3 (150-450); Red Blood Count 3.95 M/mm3 (4.1-5.4); Red Cell Distribution Width 14.7 % (11.5-14.0); White Blood Count 12.7 K/mm3 (4.0-10.5)
[2017-03-11] MEDS ORDERED: MORPHINE SULFATE 2 MG INJ IV ONE (02:35)
[2017-03-11] MEDS ORDERED: MORPHINE SULFATE 2 MG INJ ONE (02:36)
[2017-03-11 02:48] LABS: ALBUMIN 2.9 g/dL (3.4-5.0); ALKALINE PHOSPHATASE 96 U/L (46-116); ANION GAP 16.7 MEQ/L (5-15); BLOOD UREA NITROGEN 9 mg/dL (9-20); CHLORIDE 104 mEq/L (98-107); Carbon Dioxide 23.4 mEq/L (21-32); Glucose 111 MG/DL (70-110); LIPASE 88 U/L (73-393); Potassium 3.4 mEq/L (3.5-5.1); SGOT/AST 14 U/L (15-37); SGPT/ALT 21 U/L (12-78); SODIUM 141 mEq/L (136-145); Total Protein 6.4 gm/dL (6.4-8.2)
[2017-03-11 02:49] LABS: TROPONIN < 0.017 ng/ml (0.000-0.056)
[2017-03-11 03:01] LABS: ADD URINE CULTURE? NO (NO); Bacteria RARE /HPF (NEGATIVE); COMPLETE URINE MICROSCOPIC? YES; Collection Type CLEAN CATCH; Epithelial Cells FEW /HPF (FEW); Hyaline Casts 0-2 /LPF (0-2); Ph 5.5 (5-6); WBC 0-2 /HPF (0-5)
[2017-03-11] MEDS ORDERED: Klor Con 10 MEQ PO ONE ×2 (03:59→04:04)
[2017-03-11] MEDS ORDERED: MAG-OX 400 ONE (04:04)
[2017-03-11 04:11] VITALS: BP 120/78; PULSE 68; O2SAT 98
[2017-03-11] MEDS ORDERED: PHENERGAN 25 MG PO ONE (04:14)
[2017-03-11] MEDS ORDERED: PHENERGAN 25 MG ONE (04:16)
--- NOTE | 2017-03-11 08:01 | XRAY ---
Indication: Right flank pain. Nausea and vomiting. Multiple contiguous axial images obtained through the abdomen and pelvis without contrast as ordered. Comparison: March 07, 2017. Lung bases demonstrates minimal bibasilar atelectasis/scarring. Heart is not enlarged. Stable small hiatal hernia. New mildly hydronephrotic right kidney and hydroureter without obstructed calculus. Findings may be from recent passage of calculus. There is now a tiny air bubble in the right mid renal calyx either infectious versus recent instrumentation. There remains a few right renal micro-calculi, unchanged in size and number. Noncontrasted stomach and bowel loops appear nonobstructed. Normal appendix. Minimal descending diverticulosis. Again cervical nabothian cysts and calcified uterine fibroid. Liver remains diffusely fatty with again 2 stable hepatic cysts. Stable punctate left adrenal calcification. Remaining liver, gallbladder, pancreas, spleen, adrenal glands, kidneys, ureters, bladder, and aorta appear unremarkable for noncontrast exam. Osseous structures intact. Stable small fatty umbilical hernia. Impression: 1. New right-sided hydronephrosis and hydroureter without obstructing calculus. Findings possibly from recent passage of calculus. There is also tiny right renal calyx air probable either bacterial forming infection versus iatrogenic from instrumentation. 2. Stable hiatal hernia, fatty liver, hepatic cysts, colonic diverticulosis, benign punctate left adrenal calcification, cervical nabothian cysts, calcified uterine fibroid, and small fatty umbilical hernia. Comment: Preliminary interpretation was made by [facility]. No critical discrepancy. CT DI 23.41
--- NOTE | 2017-03-11 08:03 | XRAY ---
Indication: Short of breath. Comparison: February 09, 2017. Portable chest demonstrates stable right base atelectasis/scarring. Remaining lungs clear. Heart is not enlarged for AP portable technique. Bony thorax intact. Impression: Stable nonacute chest with chronic features.
[2017-03-11] MEDS ORDERED: MAG-OX 400 PO SCH (10:00)
== END 2017-03-11 05:00 | disposition home or self-care (01) ==
LOC: ED 01:34
DX: R10.9 Unspecified abdominal pain (principal); R11.10 Vomiting, unspecified; R07.9 Chest pain, unspecified; E87.6 Hypokalemia; E83.42 Hypomagnesemia; R50.9 Fever, unspecified; R06.00 Dyspnea, unspecified; R07.0 Pain in throat; Z87.442 Personal history of urinary calculi
CPT/HCPCS: 36000; 36415; 71010; 74176; 80053; 80307; 81000; 82150; 83690; 83735; 84484; 84703; 85025; 93005; 96374; 96375; 99284; J1885; J2270; J2550; A9270-GY

== ENCOUNTER 2021-05-02 09:20 | Day surgery (SDC) | payer BC ==
--- NOTE | 2021-05-02 08:55 | HP ---
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 She has a new peritoneal lesion causing increased symptoms. PAST MEDICAL HISTORY: Hypertension, some anxiety. PAST SURGICAL HISTORY: section. Hysterectomy. Tubal. Hernia repair. Kidney stone removal. MEDICATIONS: Blood pressure pill. Citalopram, telmisartan. ALLERGIES: NKDA. FAMILY HISTORY: Diabetes. Cancer. SOCIAL HISTORY: No smoking. REVIEW OF SYSTEMS: Fourteen systems reviewed. No chest pain or palpitations. Other systems negative or noncontributory as above and per preadmission questionnaire. PHYSICAL EXAMINATION: GENERAL: No acute distress. HEENT: Sclerae nonicteric. NECK: No JVD. CHEST: Equal excursion, nonlabored breathing. CVS: Regular rate and rhythm. ABDOMEN: Soft. No peritoneal signs. EXTREMITIES: No significant edema. NEURO: Alert, oriented, moving extremities symmetrically. RECTAL: Perianal nodule or lesion. PSYCH: Appropriate mood and affect. IMPRESSION: Prior history of polyps, history of some perianal squamous cell carcinoma with lesion of indeterminate nature, given the fact that she had a wide excision in the past perianal area and no residual squamous cell carcinoma, she is in need of follow up excisional biopsy of this lesion of indeterminate behavior. She has prior history of polyps in the past. She in need for colonoscopy at the same time. Risks and benefits explained in detail but not limited to bleeding or infection, risk of bowel injury or perforation, risk of incomplete exam possibly requiring barium enema, risk of bowel prep, sedation or anesthesia. General risk of anesthesia, deep vein thrombosis, pulmonary embolism or pneumonia. Risks of aches, pains, burning, numbness or wound dehiscence of perianal excision site. Possibility if carcinoma may need other treatments, therapies or wide excision. She understands as well as general risk of aches, pains, burning, numbness retirement or chronic in nature, will proceed with colonoscopy and excisional biopsy of perianal lesion as an outpatient.
[~2021-05-02 09:20] MED LIST: Lactated Ringers 1,000 ML IV ONE; Sensorcaine 0.25% 10 ML ONE
[2021-05-02] MEDS ORDERED: EXPAREL 133 MG/10 ML VIAL IJ ONE (09:21)
[2021-05-02] MEDS ORDERED: Lactated Ringers 1,000 ML IV SCH (10:00)
[2021-05-02] MEDS ORDERED: DIPRIVAN 200 MG/20 ML IV ONE (12:39)
[2021-05-02] MEDS ORDERED: Xylocaine-Mpf 2% 5 Ml Vial ONE (12:51)
[2021-05-02] MEDS ORDERED: Decadron 4 MG INJ ONE (12:51)
[2021-05-02] MEDS ORDERED: SUBLIMAZE 100 MCG/2 ML ONE (12:51)
[2021-05-02] MEDS ORDERED: Zofran 4 MG/2 ML VIAL ONE (12:51)
[2021-05-02] MEDS ORDERED: TORAdol 30 mg Injection ONE (13:24)
[2021-05-02] MEDS ORDERED: Ephedrine Sulfate 50 MG/ML ONE (13:46)
[2021-05-02 15:10] VITALS: O2SAT 93
[2021-05-02 16:01] VITALS: BP 127/81; PULSE 72
--- NOTE | 2021-05-03 11:29 | OP ---
SURGERY DATE/TIME: 05/02/2021 1250 PREOPERATIVE DIAGNOSES: 1) Prior history of perianal squamous cell carcinoma in the past, new lesion indeterminate behavior perianal area. 2) Need for follow up colonoscopy as well as excisional biopsy. 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 2) Diverticulosis. 3) Fair bowel prep. 4) Withdrawal time 11 minutes. 5) ASA Class II. PROCEDURES: 1) Colonoscopy to terminal ileum. 2) Retrograde ileoscopy. 3) Hot biopsy and piecemeal removal of small 3 mm rectal polyp. 4) Excisional biopsy of perianal lesion of indeterminate behavior approximately 3.5 cm with margins. SURGEON: Dr. Domingo Caballero. TRAFFIC ATTENDANT: Vik Vaughn, Medical Student III. ANESTHESIA: General. ESTIMATED BLOOD LOSS: Minimal. INDICATIONS: As noted above. Risks and benefits explained in detail but not limited to and consent obtained. DESCRIPTION OF PROCEDURE AND FINDINGS: The patient is taken to the operating room. General anesthesia introduced. Placed in left lateral decubitus position. Appropriate padding and positioning per anesthesia and OR staff. Digital rectal exam did not reveal any internal rectal masses. She did have a perianal lesion of indeterminate behavior. Video colonoscope inserted and passed up the tortuous sigmoid, descending, transverse and ascending colon down to right lower quadrant. Appendiceal orifice and valve were well visualized, photo documented. Prep overall was fair but on the limited side with some liquidy semi-solid stool throughout the colon limiting the exam for small lesions. The scope was slowly and carefully withdrawn suction irrigating the stool as well as possible. She did have some diverticulosis in the left colon. It should be noted that when passed up the terminal ileum and retrograde ileoscopy is grossly unremarkable. The scope is then carefully withdrawn over the next 11 minutes irrigating and suctioning out this liquidy stool. Down in the left colon the patient had diverticulosis mostly in the left colon. Otherwise suction irrigating as well as possible. Scope pulled back to the rectum. A small 3 mm polyp is removed in two pieces with hot biopsy forceps with brief bursts of cautery. Good hemostasis noted. The patient tolerated the procedure well. There were no immediate complications.
== END 2021-05-02 15:45 | disposition home or self-care (01) ==
LOC: SDC 09:20
PROVIDERS: ATTEND Surgery
DX: Z08 Encounter for follow-up examination after completed treatment for malignant neoplasm (principal); Z85.048 Personal history of other malignant neoplasm of rectum, rectosigmoid junction, and anus; K63.5 Polyp of colon; K57.30 Diverticulosis of large intestine without perforation or abscess without bleeding; K62.89 Other specified diseases of anus and rectum; L72.0 Epidermal cyst; I10 Essential (primary) hypertension; Z79.899 Other long term (current) drug therapy
CPT/HCPCS: 88304; 88305; J1100; J1885; J2405; J2704; J3010

== ENCOUNTER 2023-10-16 14:09 | Emergency (ER) | payer BC ==
[2023-10-16 14:52] VITALS: RESP 18; TEMP 98.6
[2023-10-16] MEDS ORDERED: Sodium Chloride 0.9% 1000 ML 1,000 ML ONE (14:54)
[2023-10-16] MEDS ORDERED: TORAdol 30 mg Injection ONE (14:54)
[2023-10-16] MEDS: TORAdol 30 mg Injection IV ONE (15:06)
[2023-10-16] MEDS: Sodium Chloride 0.9% 1000 ML 1,000 ML IV SCH (15:06)
[2023-10-16 15:09] LABS: Absolute Neutrophil Ct (ANC) 5.79 x10^3/uL (1.4-6.9); BASOPHIL % 0.6 % (0.0-0.4); Basophil (Absolute #) 0.05 x10^3/uL (0-0.4); Eosinophil % 2.3 % (0.00-5.0); Eosinophil (Absolute #) 0.21 x10^3/uL (0-0.5); Hematocrit 41.7 % (35-47); Hemoglobin 13.9 g/dL (12.0-16.0); IMMATURE GRAN # 0.02 x10^3u/L (0.00-0.03); IMMATURE GRAN % 0.2 % (0.00-0.4); Lymphocyte (Absolute #) 2.35 x10^3/uL (1.0-4.6); Mean Cell Volume 89.5 fL (78-100); Mean Corpuscular Hemoglobin 29.8 pg (26-32); Mean Corpuscular Hgb Concent. 33.3 g/dL (32-36); Mean Platelet Volume 9.1 fL (7.5-11.0); Monocyte (Absolute #) 0.61 x10^3/uL (0.0-1.3); Monocytes % 6.8 % (0.0-12.0); Neutrophil % 64.1 % (36.0-66.0); Platelet Count 308 x10^3/uL (150-450); Red Blood Count 4.66 x10^6/uL (4.1-5.4); Red Cell Distribution Width 12.3 % (11.5-14.0)
[2023-10-16 15:12] LABS: Appearance Clear (Clear); Bacteria Few /HPF (None Seen); Bilirubin Negative (Negative); Blood Negative (Negative); Epithelial Cells Few /HPF (None Seen); Glucose, Urine Negative (Negative); Hyaline Casts NONE SEEN /LPF (0-2); Ketones Negative (Negative); Leukocyte Esterase Trace (Negative); Nitrite Negative (Negative); Ph 6.5 (4.6-8.0); Protein,Urine Dip Negative (Negative); Specific Gravity 1.025 (1.005-1.030); Urobilinogen 0.2 mg/dL (0.2)
[2023-10-16 15:14] LABS: ADD URINE CULTURE? NO (NO)
[2023-10-16 15:24] LABS: ALBUMIN 4.4 g/dL (3.5-5.0); ANION GAP 12.6 MEQ/L (5-15); BILIRUBIN,TOTAL 0.6 mg/dL (0.2-1.3); Calcium 9.2 mg/dL (8.4-10.2); Creatinine 1 0.55 mg/dL (0.52-1.04); EST GLOMERULAR FILTRATION RATE 108.9 ML/MIN; Potassium 3.9 mmol/L (3.5-5.1); Total Protein 7.2 g/dL (6.3-8.2)
[2023-10-16 17:06] VITALS: O2SAT 99
--- NOTE | 2023-10-16 17:16 | XRAY ---
Indication: Left rib pain. Multiple contiguous axial images obtained through the chest without contrast. Comparison: None Lungs inflated and clear. Heart not enlarged. Aorta is normal in course and caliber. No pathologic mediastinal lymphadenopathy. Bony thorax and ribs intact. Incidental small T12 Schmorl node and mild L1-L3 degenerative changes. Limited upper abdomen demonstrates fatty liver and nonobstructing right renal punctate calculus. Impression: 1. Fatty liver, nonobstructing right renal punctate calculus, and chronic bony findings. 2. Remaining CT chest without contrast exam is normal.
--- NOTE | 2023-10-16 17:29 | ERPHSYRPT ---
- History of Present Illness Time Seen by Provider: 10/16/23 15:00 Source: patient Exam Limitations: no limitations Patient Subjective Stated Complaint: pt states that she has left rib pain Triage Nursing Assessment: pt ambulated into the er; pt is axo x4; c/o left rib pain; pt has tenderness to left lower rib; no bruising or deformity present to left lower ribs; skin PDW; no respiratory distress present; vitals wnl Physician History: Patient is a 52-year-old female presents to our ED with progressive left rib pain. Symptoms started on 1222. No trauma no fever. Pain described as an ache that is localized. No radiation. Pain worse with movement and palpation. Patient has a history of kidney stones. Patient concerned that it could potentially be a kidney stone. No associated chest pain or shortness of breath. No nausea vomiting or diaphoresis. Symptoms are moderate in intensity. Patient otherwise feels well. She voices no other complaints or concerns at this time. Portions of this note were created with voice recognition technology. There may be grammatical, spelling, punctuation or sound alike errors Timing/Duration: other (Approximately 12 days) Severity: moderate Modifying Factors: Improves With: movement, other Associated Symptoms: denies symptoms Allergies/Adverse Reactions: No Known Drug Allergies Allergy (Verified 10/16/23 14:34) Home Medications: Escitalopram Oxalate [Lexapro] 10 mg PO DAILY 04/19/21 [History] Telmisartan/Hydrochlorothiazid [Micardis Hct 40-12.5 mg Tablet] 1 tablet PO DAILY 04/19/21 [History] Hx Tetanus, Diphtheria Vaccination/Date Given: Yes Hx Influenza Vaccination/Date Given: No Hx Pneumococcal Vaccination/Date Given: No Travel Risk - International Travel Have you traveled outside of the country in past 3 weeks: No - Coronavirus Screening Are you exhibiting any of the following symptoms?: No Close contact with a COVID-19 positive Pt in past 14-21 Days: No - Vaccine Status Have you recieved a Covid-19 vaccination: No - Review of Systems Constitutional: No Symptoms, No Fever, No Chills Eyes: No Symptoms Ears, Nose, & Throat: No Symptoms Respiratory: No Symptoms, No Cough, No Dyspnea Cardiac: No Symptoms, No Chest Pain, No Edema, No Syncope Abdominal/Gastrointestinal: No Symptoms, No Abdominal Pain, No Nausea, No Vomiting, No Diarrhea Genitourinary Symptoms: No Symptoms, No Dysuria Musculoskeletal: No Symptoms, No Back Pain, No Neck Pain Skin: No Symptoms, No Rash Neurological: No Symptoms, No Dizziness, No Focal Weakness, No Sensory Changes Psychological: No Symptoms Endocrine: No Symptoms Hematologic/Lymphatic: No Symptoms Immunological/Allergic: No Symptoms All Other Systems: Reviewed and Negative - Past Medical History Pertinent Past Medical History: Yes Neurological History: No Pertinent History ENT History: No Pertinent History Cardiac History: No Pertinent History Respiratory History: No Pertinent History Endocrine Medical History: No Pertinent History Musculoskeletal History: Other GI Medical History: Hernia History: Other Psycho-Social History: No Pertinent History Female Reproductive Disorders: No Pertinent History Other Medical History: KIDNEY STONE, skin ca - Past Surgical History Past Surgical History: Yes Neuro Surgical History: No Pertinent History Cardiac: No Pertinent History Respiratory: No Pertinent History Gastrointestinal: No Pertinent History Genitourinary: Other Musculoskeletal: No Pertinent History Female Surgical History: Section, Tubal Ligation, Other Other Surgical History: HERNIA SURGERY, D/C,kidney stone, cancer removal from b uttocks. - Social History Smoking Status: Smoker, status unknown How long have you smoked: years Exposure to second hand smoke: Yes Drug Use: none Patient Lives Alone: Yes - Nursing Vital Signs Nursing Vital Signs: Initial Vital Signs Pulse Rate 78 10/16/23 14:33 Blood Pressure 128/73 10/16/23 14:33 O2 Sat by Pulse Oximetry 98 10/16/23 14:33 Pain Scale Pain Intensity [Left Lower 10 Chest] Pain Intensity 8 - Physical Exam General Appearance: no apparent distress, alert Eye Exam: PERRL/EOMI, eyes nml inspection Ears, Nose, Throat Exam: moist mucous membranes Neck Exam: normal inspection, non-tender, supple, full range of motion Respiratory Exam: normal breath sounds, lungs clear, airway intact, other (Tenderness palpation left rib. Movement palpation reproduces symptoms.), No respiratory distress Cardiovascular Exam: regular rate/rhythm, normal heart sounds, normal peripheral pulses Gastrointestinal/Abdomen Exam: soft, normal bowel sounds, No tenderness, No mass Back Exam: normal inspection, normal range of motion, No CVA tenderness, No v ertebral tenderness Extremity Exam: normal inspection, normal range of motion, pelvis stable Neurologic Exam: alert, oriented x 3, cooperative, normal mood/affect, nml cerebellar function, nml station & gait, sensation nml, No motor deficits Skin Exam: normal color, warm, dry, No rash Lymphatic Exam: No adenopathy SpO2 Interpretation: normal SpO2: 99 O2 Delivery: Room Air - Course Nursing assessment & vital signs reviewed: Yes - CT Exams Chest CT Interpretation: Tele-radiologist Report (Fatty liver right nephrolithiasis otherwise negative) Ordered Tests: Active Orders 24 hr Category Date Time Status IV Insertion STAT Care 10/16/23 14:43 Active CHEST WITHOUT CONTRAST [CT] Stat Exams 10/16/23 15:52 Completed CBC W DIFF Stat Lab 10/16/23 15:00 Completed CMP Stat Lab 10/16/23 15:00 Completed D-DIMER QUANTITATIVE Stat Lab 10/16/23 15:00 Completed LIPASE Stat Lab 10/16/23 15:00 Completed TROPONIN Q4H Lab 10/16/23 15:00 Completed TROPONIN Q4H Lab 10/16/23 18:45 Ordered TROPONIN Q4H Lab 10/16/23 22:45 Ordered UA W/RFX UR CULTURE Stat Lab 10/16/23 15:06 Completed Medication Summary Generic Name Dose Route Start Last Admin Trade Name Freq PRN Reason Stop Dose Admin Sodium Chloride 1,000 mls @ 100 mls/hr 10/16/23 14:45 10/16/23 15:06 Sodium Chloride 0.9% 1000 Ml IV 11/15/23 14:44 100 mls/hr .Q10H JOEL Administration Discontinued Medications Generic Name Dose Route Start Last Admin Trade Name Freq PRN Reason Stop Dose Admin Ketorolac Tromethamine 30 mg 10/16/23 14:43 10/16/23 15:06 Ketorolac Tromethamine 30 Mg/Ml Inj IV 10/16/23 14:44 30 mg STAT ONE Administration Ketorolac Tromethamine Confirm 10/16/23 14:54 Ketorolac Tromethamine 30 Mg/Ml Inj Administered 10/16/23 14:55 Dose 30 mg .ROUTE .[facility] Lab/Rad Data: Laboratory Result Diagrams 10/16/23 15:00 10/16/23 15:00 Laboratory Results 10/16/23 10/16/23 10/16/23 Range/Units 15:06 15:00 15:00 WBC (4.0-10.5) x10^3/uL RBC (4.1-5.4) x10^6/uL Hgb (12.0-16.0) g/dL Hct (35-47) % MCV (78-100) fL MCH (26-32) pg MCHC (32-36) g/dL RDW (11.5-14.0) % Plt Count (150-450) x10^3/uL MPV (7.5-11.0) fL Gran % (36.0-66.0) % Immature Gran % (Auto) (0.00-0.4) % Nucleat RBC Rel Count (0.00-0.1) % Eos # (Auto) (0-0.5) x10^3/uL Immature Gran # (Auto) (0.00-0.03) x10^3u/L Absolute Lymphs (auto) (1.0-4.6) x10^3/uL Absolute Monos (auto) (0.0-1.3) x10^3/uL Absolute Nucleated RBC (0.00-0.01) x10^3u/L Lymphocytes % (24.0-44.0) % Monocytes % (0.0-12.0) % Eosinophils % (0.00-5.0) % Basophils % (0.0-0.4) % Absolute Granulocytes (1.4-6.9) x10^3/uL Basophils # (0-0.4) x10^3/uL D-Dimer 0.34 (0.0-0.50) mg/L Sodium (137-145) mmol/L Potassium (3.5-5.1) mmol/L Chloride (98-107) mmol/L Carbon Dioxide (22-30) mmol/L Anion Gap (5-15) MEQ/L BUN (7-17) mg/dL Creatinine (0.52-1.04) mg/dL Estimated GFR ML/MIN Glucose (74-106) mg/dL Calcium (8.4-10.2) mg/dL Total Bilirubin (0.2-1.3) mg/dL AST (14-36) U/L ALT (0-35) U/L Alkaline Phosphatase (38-126) U/L Troponin I < 0.012 (0.000-0.034) ng/mL Serum Total Protein (6.3-8.2) g/dL Albumin (3.5-5.0) g/dL Lipase (23-300) U/L Urine Color Yellow (Yellow) Urine Appearance Clear (Clear) Urine pH 6.5 (4.6-8.0) Ur Specific Hubbard 1.025 (1.005-1.030) Urine Protein Negative (Negative) Urine Glucose (UA) Negative (Negative) mg/dL Urine Ketones Negative (Negative) Urine Blood Negative (Negative) Urine Nitrite Negative (Negative) Urine Bilirubin Negative (Negative) Urine Urobilinogen 0.2 (0.2) mg/dL Ur Leukocyte Esterase Trace A (Negative) U Hyaline Cast (Auto) NONE SEEN (0-2) /LPF Urine Microscopic RBC 3-5 (0-5) /HPF Urine Microscopic WBC 6-10 A (0-5) /HPF Ur Epithelial Cells Few (None Seen) /HPF Urine Bacteria Few A (None Seen) /HPF Urine Culture Reflexed NO (NO) 10/16/23 10/16/23 Range/Units 15:00 15:00 WBC 9.0 (4.0-10.5) x10^3/uL RBC 4.66 (4.1-5.4) x10^6/uL Hgb 13.9 (12.0-16.0) g/dL Hct 41.7 (35-47) % MCV 89.5 (78-100) fL MCH 29.8 (26-32) pg MCHC 33.3 (32-36) g/dL RDW 12.3 (11.5-14.0) % Plt Count 308 (150-450) x10^3/uL MPV 9.1 (7.5-11.0) fL Gran % 64.1 (36.0-66.0) % Immature Gran % (Auto) 0.2 (0.00-0.4) % Nucleat RBC Rel Count 0.0 (0.00-0.1) % Eos # (Auto) 0.21 (0-0.5) x10^3/uL Immature Gran # (Auto) 0.02 (0.00-0.03) x10^3u/L Absolute Lymphs (auto) 2.35 (1.0-4.6) x10^3/uL Absolute Monos (auto) 0.61 (0.0-1.3) x10^3/uL Absolute Nucleated RBC 0.00 (0.00-0.01) x10^3u/L Lymphocytes % 26.0 (24.0-44.0) % Monocytes % 6.8 (0.0-12.0) % Eosinophils % 2.3 (0.00-5.0) % Basophils % 0.6 (0.0-0.4) % Absolute Granulocytes 5.79 (1.4-6.9) x10^3/uL Basophils # 0.05 (0-0.4) x10^3/uL D-Dimer (0.0-0.50) mg/L Sodium 134 L (137-145) mmol/L Potassium 3.9 (3.5-5.1) mmol/L Chloride 102 (98-107) mmol/L Carbon Dioxide 23 (22-30) mmol/L Anion Gap 12.6 (5-15) MEQ/L BUN 15 (7-17) mg/dL Creatinine 0.55 (0.52-1.04) mg/dL Estimated GFR 108.9 ML/MIN Glucose 95 (74-106) mg/dL Calcium 9.2 (8.4-10.2) mg/dL Total Bilirubin 0.60 (0.2-1.3) mg/dL AST 26 (14-36) U/L ALT 28 (0-35) U/L Alkaline Phosphatase 101 (38-126) U/L Troponin I (0.000-0.034) ng/mL Serum Total Protein 7.2 (6.3-8.2) g/dL Albumin 4.4 (3.5-5.0) g/dL Lipase 69 (23-300) U/L Urine Color (Yellow) Urine Appearance (Clear) Urine pH (4.6-8.0) Ur Specific Hubbard (1.005-1.030) Urine Protein (Negative) Urine Glucose (UA) (Negative) mg/dL Urine Ketones (Negative) Urine Blood (Negative) Urine Nitrite (Negative) Urine Bilirubin (Negative) Urine Urobilinogen (0.2) mg/dL Ur Leukocyte Esterase (Negative) U Hyaline Cast (Auto) (0-2) /LPF Urine Microscopic RBC (0-5) /HPF Urine Microscopic WBC (0-5) /HPF Ur Epithelial Cells (None Seen) /HPF Urine Bacteria (None Seen) /HPF Urine Culture Reflexed (NO) - Progress Progress: improved Progress Note: Patient is a 52-year-old female presents to our ED with left-sided rib pain. Pain has been progressive. Physical exam reveals tenderness to palpation at left rib. D-dimer negative. CBC CMP negative. Troponin negative. Lipase negative. Urinalysis reveals small pyuria urine culture pending. Patient received bolus normal saline and Toradol. CT chest without contrast essentially nonremarkable for acute pathology. No explanation for patient's rib pain. No indication for further workup at this time. Will discharge home. Patient agrees to follow-up with her primary care doctor within 48 hours for reevaluation. Portions of this note were created with voice recognition technology. There may be grammatical, spelling, punctuation or sound alike errors Complexity of problem addressed is moderate acute complicated No critical care time Complexity of data reviewed and analyzed is moderate. Test ordered test reviewed. Results analyzed and correlated clinically with history and physical exam Risk of complication and or risk of morbidity/mortality patient management is moderate. A prescription for Toradol forwarded to patient's pharmacy. Vital stable. Time spent to discharge patient is approximately 15 minutes. Plan of care established for shared decision making. No social determinants of health present impede follow-up. Portions of this note were created with voice recognition technology. There may be grammatical, spelling, punctuation or sound alike errors 10/16/23 17:31 Counseled pt/family regarding: lab results, diagnosis, need for follow-up, rad results - Departure Departure Disposition: Home Clinical Impression: Rib pain on left side Condition: Stable Critical Care Time: No Referrals: ERNESTINA BALES NP [Primary Care Provider] - Follow up/PCP as directed Additional Instructions: Discharge/Care Plan NITHYA WHITNEYAN was seen on 10/16/23 in the Emergency Room. The patient was counseled regarding Diagnosis,Lab results, Imaging studies, need for follow up and when to return to the Emergency Room. Prescriptions given: Discharge Note I have spoken with the patient and/or caregivers. I have explained the patient's condition, diagnosis and treatment plan based on the information available to me at this time. I have answered the patient's and/or caregiver's questions and addressed any concerns. The patient and/or caregivers have as good understanding of the patient's diagnosis, condition and treatment plan as can be expected at this point. The vital signs have been stable. The patient's condition is stable and appropriate for discharge from the emergency department. The patient will pursue further outpatient evaluation with the primary care ysician or other designated or consulting physician as outlined in the discharge instructions. The patient and/or caregivers are agreeable to this plan of care and follow-up instructions have been explained in detail. The patient and/or caregivers have received these instruction. The patient/and or caregivers are aware that any significant change in condition or worsening of symptoms should prompt an immediate return to this or the closest emergency department or call 911. Prescriptions: Ketorolac Trometh 10 mg Tab [TORAdol 10 MG TABLET] 10 mg PO TID 5 Days #15 tablet
[2023-10-16 17:49] VITALS: BP 118/78; PULSE 65
== END 2023-10-16 17:53 | disposition home or self-care (01) ==
LOC: ED 14:09
DX: R07.81 Pleurodynia (principal); Z79.899 Other long term (current) drug therapy; Z28.310 Unvaccinated for COVID-19
CPT/HCPCS: 36000; 36415; 71250; 80053; 81001; 83690; 84484; 85025; 85379; 96374; 99284; J1885

== ENCOUNTER 2023-10-21 19:22 | Emergency (ER) | payer BC ==
[2023-10-21] MEDS ORDERED: Zofran 4 MG/2 ML VIAL IV ONE (19:59)
[2023-10-21] MEDS ORDERED: TORAdol 30 mg Injection IV ONE (19:59)
[2023-10-21] MEDS ORDERED: Pepcid 20 MG VIAL IV ONE ×2 (19:59→20:03)
[2023-10-21] MEDS ORDERED: Sodium Chloride 0.9% 1000 ML 1,000 ML IV STA (19:59)
[2023-10-21] MEDS ORDERED: TORAdol 30 mg Injection ONE (20:03)
[2023-10-21] MEDS ORDERED: Sodium Chloride 0.9% 1000 ML 1,000 ML ONE (20:03)
[2023-10-21] MEDS ORDERED: Zofran 4 MG/2 ML VIAL ONE (20:03)
--- NOTE | 2023-10-21 20:05 | ERPHSYRPT ---
- History of Present Illness Historian: patient Exam Limitations: no limitations Physician History: d52 years old female with past medical is hypertension, kidney stones,. The patient is presenting to the emergency room complaining of left side abdominal pain mostly in the left upper quadrant below her left ribs that she has been having for the last 3 weeks since September 29 after returning from a cruise trip. The patient has not been taking any medications for the above pain. She was seen and managed at our emergency room on Sunday 4 days from today and was diagnosed with left-sided kidney stones, discharged on Toradol tablets. The patient followed up with her family physician last Sunday 2 days from today and was diagnosed with UTI and placed on Bactrim. Today while she was in the shower her left-sided abdominal pain got worse and severe she had nausea and vomited couple of times. At present she is dry heaving. She has been constipated, last bowel movement was probably 2 to 3 days ago. She cannot explain any exacerbating or relieving factors for her constant pain that she has been having since September 29. The patient past surgical history is for hernia repair, kidney stones, D&C. As mentioned above she has not been taking any pain medications as needed for the Toradol that was prescribed for her at our emergency room couple of days ago. Allergies/Adverse Reactions: No Known Drug Allergies Allergy (Verified 10/21/23 19:31) Home Medications: Escitalopram Oxalate [Lexapro] 0.5 tab PO HSPRN PRN 04/19/21 [History] Telmisartan/Hydrochlorothiazid [Micardis Hct 40-12.5 mg Tablet] 1 tablet PO DAILY 04/19/21 [History] Smz/Tmp Ds Tablet [Bactrim Ds Tablet] 1 tab PO Q12H 10/21/23 [History] Hx Tetanus, Diphtheria Vaccination/Date Given: Yes Hx Influenza Vaccination/Date Given: No Hx Pneumococcal Vaccination/Date Given: No Travel Risk - Vaccine Status Have you recieved a Covid-19 vaccination: No - Review of Systems Constitutional: No Fever, No Chills Eyes: No Symptoms Ears, Nose, & Throat: No Symptoms Respiratory: No Cough, No Dyspnea Cardiac: No Chest Pain, No Edema, No Syncope Abdominal/Gastrointestinal: Abdominal Pain, Nausea, Vomiting, Constipation, No Diarrhea Genitourinary Symptoms: No Dysuria Musculoskeletal: No Back Pain, No Neck Pain Skin: No Rash Neurological: No Dizziness, No Focal Weakness, No Sensory Changes Psychological: No Symptoms Endocrine: No Symptoms All Other Systems: Reviewed and Negative - Past Medical History Pertinent Past Medical History: Yes Neurological History: No Pertinent History ENT History: No Pertinent History Cardiac History: No Pertinent History Respiratory History: No Pertinent History Endocrine Medical History: No Pertinent History Musculoskeletal History: Other GI Medical History: Hernia History: Other Psycho-Social History: No Pertinent History Female Reproductive Disorders: No Pertinent History Other Medical History: KIDNEY STONE, skin ca - Past Surgical History Past Surgical History: Yes Neuro Surgical History: No Pertinent History Cardiac: No Pertinent History Respiratory: No Pertinent History Gastrointestinal: No Pertinent History Genitourinary: Other Musculoskeletal: No Pertinent History Female Surgical History: Section, Tubal Ligation, Other Other Surgical History: HERNIA SURGERY, D/C,kidney stone, 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 - Social History Smoking Status: Smoker, status unknown How long have you smoked: years Exposure to second hand smoke: Yes Drug Use: none Patient Lives Alone: Yes - Nursing Vital Signs Nursing Vital Signs: Initial Vital Signs Pulse Rate 104 H 10/21/23 19:36 Respiratory Rate 17 10/21/23 19:36 Blood Pressure 139/102 10/21/23 19:36 O2 Sat by Pulse Oximetry 93 L 10/21/23 19:36 Pain Scale Pain Intensity 0 - Physical Exam General Appearance: no apparent distress, alert Eye Exam: PERRL/EOMI, eyes nml inspection Ears, Nose, Throat Exam: normal ENT inspection, pharynx normal, moist mucous membranes Neck Exam: normal inspection, non-tender, supple, full range of motion Respiratory Exam: normal breath sounds, lungs clear, No respiratory distress Cardiovascular Exam: regular rate/rhythm, normal heart sounds Gastrointestinal/Abdomen Exam: soft, tenderness (Left-sided abdominal pain, no rebound no guarding or rigidity.), No mass Back Exam: normal inspection, normal range of motion, No CVA tenderness, No vertebral tenderness Extremity Exam: normal inspection, normal range of motion, pelvis stable Neurologic Exam: alert, oriented x 3, cooperative, normal mood/affect, nml cerebellar function, sensation nml, No motor deficits Skin Exam: normal color, warm, dry Ordered Tests: Active Orders 24 hr Category Date Time Status IV Insertion STAT Care 10/21/23 19:59 Active ABDOMEN AND PELVIS W CONTRAST [CT] Stat Exams 10/21/23 20:00 Completed CBC W DIFF Stat Lab 10/21/23 20:02 Completed CMP Stat Lab 10/21/23 20:02 Completed CULTURE,URINE Stat Lab 10/21/23 20:02 Received HCG QUALITATIVE, URINE Stat Lab 10/21/23 20:02 Completed LIPASE Stat Lab 10/21/23 20:02 Completed UA W/RFX UR CULTURE Stat Lab 10/21/23 20:02 Completed Medication Summary Discontinued Medications Generic Name Dose Route Start Last Admin Trade Name Rangel PRN Reason Stop Dose Admin Famotidine 20 mg 10/21/23 19:59 10/21/23 20:08 Famotidine 20 Mg/1 Vial IV 10/21/23 20:00 20 mg STAT ONE Administration Famotidine Confirm 10/21/23 20:03 Famotidine 20 Mg/1 Vial Administered 10/21/23 20:04 Dose 20 mg IV .STK-MED ONE Sodium Chloride 1,000 mls @ 999 mls/hr 10/21/23 19:59 10/21/23 21:07 Sodium Chloride 0.9% 1000 Ml IV 10/21/23 20:59 Infused .Q1H1M STA Infusion Sodium Chloride Confirm 10/21/23 20:03 Sodium Chloride 0.9% 1000 Ml Administered 10/21/23 20:04 Dose 1,000 mls @ ud .ROUTE .STK-MED ONE Ceftriaxone Sodium/Dextrose 1 g in 50 mls @ 100 mls/hr 10/21/23 22:31 10/21/23 23:12 Rocephin 1 Gm-D5w 50 Ml Bag IV 10/21/23 23:00 Infused STAT STA Infusion Ceftriaxone Sodium/Dextrose Confirm 10/21/23 22:37 Rocephin 1 Gm-D5w 50 Ml Bag Administered 10/21/23 22:38 Dose 1 g in 50 mls @ ud IV .STK-MED ONE Ketorolac Tromethamine 30 mg 10/21/23 19:59 10/21/23 20:07 Ketorolac Tromethamine 30 Mg/Ml Inj IV 10/21/23 20:00 30 mg STAT ONE Administration Ketorolac Tromethamine Confirm 10/21/23 20:03 Ketorolac Tromethamine 30 Mg/Ml Inj Administered 10/21/23 20:04 Dose 30 mg .ROUTE .STK-MED ONE Ondansetron HCl 4 mg 10/21/23 19:59 10/21/23 20:07 Ondansetron Hcl 4 Mg/2 Ml Vial IV 10/21/23 20:00 4 mg STAT ONE Administration Ondansetron HCl Confirm 10/21/23 20:03 Ondansetron Hcl 4 Mg/2 Ml Vial Administered 10/21/23 20:04 Dose 4 mg .ROUTE .STK-MED ONE Lab/Rad Data: Laboratory Result Diagrams 10/21/23 20:02 10/21/23 20:02 Laboratory Results 10/21/23 10/21/23 10/21/23 Range/Units 20:02 20:02 20:02 WBC (4.0-10.5) x10^3/uL RBC (4.1-5.4) x10^6/uL Hgb (12.0-16.0) g/dL Hct (35-47) % MCV (78-100) fL MCH (26-32) pg MCHC (32-36) g/dL RDW (11.5-14.0) % Plt Count (150-450) x10^3/uL MPV (7.5-11.0) fL Gran % (36.0-66.0) % Immature Gran % (Auto) (0.00-0.4) % Nucleat RBC Rel Count (0.00-0.1) % Eos # (Auto) (0-0.5) x10^3/uL Immature Gran # (Auto) (0.00-0.03) x10^3u/L Absolute Lymphs (auto) (1.0-4.6) x10^3/uL Absolute Monos (auto) (0.0-1.3) x10^3/uL Absolute Nucleated RBC (0.00-0.01) x10^3u/L Lymphocytes % (24.0-44.0) % Monocytes % (0.0-12.0) % Eosinophils % (0.00-5.0) % Basophils % (0.0-0.4) % Absolute Granulocytes (1.4-6.9) x10^3/uL Basophils # (0-0.4) x10^3/uL Sodium 136 L (137-145) mmol/L Potassium 3.8 (3.5-5.1) mmol/L Chloride 104 (98-107) mmol/L Carbon Dioxide 21 L (22-30) mmol/L Anion Gap 14.6 (5-15) MEQ/L BUN 14 (7-17) mg/dL Creatinine 0.89 (0.52-1.04) mg/dL Estimated GFR 77.0 ML/MIN Glucose 125 H (74-106) mg/dL Calcium 9.6 (8.4-10.2) mg/dL Total Bilirubin 0.60 (0.2-1.3) mg/dL AST 31 (14-36) U/L ALT 38 H (0-35) U/L Alkaline Phosphatase 109 (38-126) U/L Serum Total Protein 7.8 (6.3-8.2) g/dL Albumin 4.7 (3.5-5.0) g/dL Lipase 119 (23-300) U/L Urine Color Dark Yellow A (Yellow) Urine Appearance Cloudy A (Clear) Urine pH 6.0 (4.6-8.0) Ur Specific [place] 1.025 (1.005-1.030) Urine Protein 30 (Negative) Urine Glucose (UA) Negative (Negative) mg/dL Urine Ketones Trace A (Negative) Urine Blood Negative (Negative) Urine Nitrite Negative (Negative) Urine Bilirubin Negative (Negative) Urine Urobilinogen 1.0 A (0.2) mg/dL Ur Leukocyte Esterase Trace A (Negative) U Hyaline Cast (Auto) 3-5 A (0-2) /LPF Urine Microscopic RBC 3-5 (0-5) /HPF Urine Microscopic WBC 11-20 A (0-5) /HPF Ur Epithelial Cells Moderate A (None Seen) /HPF Urine Bacteria Moderate A (None Seen) /HPF Urine Culture Reflexed YES (NO) Urine HCG, Qual NEGATIVE (NEGATIVE) 10/21/23 Range/Units 20:02 WBC 9.4 (4.0-10.5) x10^3/uL RBC 5.02 (4.1-5.4) x10^6/uL Hgb 14.8 (12.0-16.0) g/dL Hct 45.0 (35-47) % MCV 89.6 (78-100) fL MCH 29.5 (26-32) pg MCHC 32.9 (32-36) g/dL RDW 12.7 (11.5-14.0) % Plt Count 319 (150-450) x10^3/uL MPV 9.5 (7.5-11.0) fL Gran % 71.6 H (36.0-66.0) % Immature Gran % (Auto) 0.2 (0.00-0.4) % Nucleat RBC Rel Count 0.0 (0.00-0.1) % Eos # (Auto) 0.19 (0-0.5) x10^3/uL Immature Gran # (Auto) 0.02 (0.00-0.03) x10^3u/L Absolute Lymphs (auto) 1.80 (1.0-4.6) x10^3/uL Absolute Monos (auto) 0.62 (0.0-1.3) x10^3/uL Absolute Nucleated RBC 0.00 (0.00-0.01) x10^3u/L Lymphocytes % 19.1 L (24.0-44.0) % Monocytes % 6.6 (0.0-12.0) % Eosinophils % 2.0 (0.00-5.0) % Basophils % 0.5 (0.0-0.4) % Absolute Granulocytes 6.76 (1.4-6.9) x10^3/uL Basophils # 0.05 (0-0.4) x10^3/uL Sodium (137-145) mmol/L Potassium (3.5-5.1) mmol/L Chloride (98-107) mmol/L Carbon Dioxide (22-30) mmol/L Anion Gap (5-15) MEQ/L BUN (7-17) mg/dL Creatinine (0.52-1.04) mg/dL Estimated GFR ML/MIN Glucose (74-106) mg/dL Calcium (8.4-10.2) mg/dL Total Bilirubin (0.2-1.3) mg/dL AST (14-36) U/L ALT (0-35) U/L Alkaline Phosphatase (38-126) U/L Serum Total Protein (6.3-8.2) g/dL Albumin (3.5-5.0) g/dL Lipase (23-300) U/L Urine Color (Yellow) Urine Appearance (Clear) Urine pH (4.6-8.0) Ur Specific [place] (1.005-1.030) Urine Protein (Negative) Urine Glucose (UA) (Negative) mg/dL Urine Ketones (Negative) Urine Blood (Negative) Urine Nitrite (Negative) Urine Bilirubin (Negative) Urine Urobilinogen (0.2) mg/dL Ur Leukocyte Esterase (Negative) U Hyaline Cast (Auto) (0-2) /LPF Urine Microscopic RBC (0-5) /HPF Urine Microscopic WBC (0-5) /HPF Ur Epithelial Cells (None Seen) /HPF Urine Bacteria (None Seen) /HPF Urine Culture Reflexed (NO) Urine HCG, Qual (NEGATIVE) - Progress Progress Note: 10/21/23 20:06 52 years old female past medical history of hypertension, presenting to the emergency room complaining of left-sided abdominal pain that she has been having since September 29 after returning from a cruise trip. The patient was seen at our emergency room last Sunday and diagnosed with kidney stone and prescribed Toradol tablets but she has not been taking the Toradol?. On Sunday she saw her family physician was diagnosed with UTI and treated with Bactrim DS The patient is denying any urinary symptoms, she is constipated last bowel movement was 2 to 3 days ago. Today while she was in the shower she had severe abdominal pain with nausea and vomiting. Emergency room course and medical decision making: The patient will be treated with IV fluid, IV Toradol, IV Pepcid and IV Zofran. Check CBC, CMP, UA, test, lipase, CT scan of abdomen and pelvis with IV contrast. 10/21/23 22:26 On checking on the patient, she is asleep. She states she is feeling better as long as she is lying down, she had her 1 bag of IV fluid IV Toradol and IV Zofran. Her workup demonstrated: Urinalysis 20 white blood cells, trace leukocyte esterase and moderate bacteria in spite of the patient being on Bactrim for at least 3 days. Her white count is normal at 9.4 hemoglobin 14.8. BUN 14 creatinine 0.9, glucose 125, normal liver function test and lipase. CT scan of abdomen pelvis demonstrated diffuse fatty changes in the liver, small right renal calculus, small hepatic lesion could be hemangioma, multiple uterine fibroids. The patient will be given Rocephin 1 g IV. Discharge planning. - Departure Departure Disposition: Home Clinical Impression: Left sided abdominal pain of unknown cause, UTI (urinary tract infection), Vomiting alone Condition: Stable Critical Care Time: No Referrals: ERNESTINA BALES, DELIVERY DRIVER/SUPERVISOR [Primary Care Provider] - Follow up/PCP as directed Prescriptions: Ciprofloxacin [Cipro 500 MG] 0 mg PO BID #10 tablet
[2023-10-21 20:07] VITALS: TEMP 98.5
[2023-10-21 20:10] LABS: Absolute Neutrophil Ct (ANC) 6.76 x10^3/uL (1.4-6.9); BASOPHIL % 0.5 % (0.0-0.4); Basophil (Absolute #) 0.05 x10^3/uL (0-0.4); Eosinophil (Absolute #) 0.19 x10^3/uL (0-0.5); Hemoglobin 14.8 g/dL (12.0-16.0); IMMATURE GRAN # 0.02 x10^3u/L (0.00-0.03); IMMATURE GRAN % 0.2 % (0.00-0.4); Lymphocytes % 19.1 % (24.0-44.0); Mean Cell Volume 89.6 fL (78-100); Mean Corpuscular Hemoglobin 29.5 pg (26-32); Mean Corpuscular Hgb Concent. 32.9 g/dL (32-36); Mean Platelet Volume 9.5 fL (7.5-11.0); Monocyte (Absolute #) 0.62 x10^3/uL (0.0-1.3); Monocytes % 6.6 % (0.0-12.0); Neutrophil % 71.6 % (36.0-66.0); Platelet Count 319 x10^3/uL (150-450); Red Blood Count 5.02 x10^6/uL (4.1-5.4); Red Cell Distribution Width 12.7 % (11.5-14.0); White Blood Count 9.4 x10^3/uL (4.0-10.5)
[2023-10-21 20:12] LABS: HCG URINE TEST NEGATIVE (NEGATIVE)
[2023-10-21 20:16] LABS: Appearance Cloudy (Clear); Bacteria Moderate /HPF (None Seen); Bilirubin Negative (Negative); Blood Negative (Negative); Epithelial Cells Moderate /HPF (None Seen); Glucose, Urine Negative (Negative); Ketones Trace (Negative); Leukocyte Esterase Trace (Negative); Nitrite Negative (Negative); Protein,Urine Dip 30 (Negative); Specific Gravity 1.025 (1.005-1.030)
[2023-10-21 20:22] LABS: ALBUMIN 4.7 g/dL (3.5-5.0); ANION GAP 14.6 MEQ/L (5-15); BILIRUBIN,TOTAL 0.6 mg/dL (0.2-1.3); Calcium 9.6 mg/dL (8.4-10.2); Creatinine 1 0.89 mg/dL (0.52-1.04); Potassium 3.8 mmol/L (3.5-5.1); Total Protein 7.8 g/dL (6.3-8.2)
[2023-10-21 20:23] LABS: ADD URINE CULTURE? YES (NO)
--- NOTE | 2023-10-21 21:39 | XRAY ---
CLINICAL HISTORY:Abdominal Pain COMPARISON:None TECHNIQUE:Contiguous axial images were obtained from the level of the diaphragm to the pubic symphysis with intravenous contrast. Coronal and sagittal reconstructions were likewise performed and indicated to increase the sensitivity for detecting clinically relevant pathology. If IV contrast material had not been administered, the likelihood of detecting abnormalities relevant to the patient's condition would have been substantially decreased. CT scan was performed according to ALARA (as low as reasonable achievable). ? FINDINGS: The visualized lung bases are clear. The liver is normal in size and show diffuse reduced attenuation. small hypodense lesion of size 10 x 7 mm is noted in segment II of liver show subtle peripheral enhancement- could suggest p/o hemangioma. There is no intra or extrahepatic biliary ductal dilatation. Hepatic vasculature is patent. The gallbladder is present. The spleen, pancreas, and adrenal glands are unremarkable. The kidneys are normal in size and attenuation. There is no hydronephrosis or perinephric fat stranding. No renal renal masses are identified. Right kidney show a non obstructing calculus of size 3 mm in mid-calyx. The ureters are normal in caliber and no ureteral calculi are seen. The bladder is normal in contour. Pelvic viscera are unremarkable. No focal or diffuse bowel wall thickening or evidence of bowel obstruction is identified. The appendix is visualized in the right lower quadrant and appears within normal limits. Abdominal and pelvic vasculature is patent. No adenopathy or fluid collections are seen. Multiple uterine fibroids noted- largest measures 22 x 20 mm in posterior wall. No aggressive appearing osseous lesions are identified. IMPRESSION: 1. Diffuse fatty changes in liver. 2. Small right renal calculus. 3. Small hepatic lesion as described- p/o hemangioma. 4. Multiple uteirne fibroids. Electronically Signed by: Dr. Raleigh Vincent MD. (10/21/2023 21:35:48 EST)
[2023-10-21] MEDS ORDERED: ROCEPHIN 1 Gm-D5w 50 ml Bag** 1 G/50 ML IVPB IV STA (22:31)
[2023-10-21] MEDS ORDERED: ROCEPHIN 1 Gm-D5w 50 ml Bag** 1 G/50 ML IVPB IV ONE (22:37)
[2023-10-21 23:05] VITALS: BP 107/68; PULSE 67; RESP 15; O2SAT 92
== END 2023-10-21 23:48 | disposition home or self-care (01) ==
LOC: ED 19:22
DX: N39.0 Urinary tract infection, site not specified (principal); R10.12 Left upper quadrant pain; R11.10 Vomiting, unspecified; K59.00 Constipation, unspecified; I10 Essential (primary) hypertension; Z79.899 Other long term (current) drug therapy; Z28.310 Unvaccinated for COVID-19
CPT/HCPCS: 36000; 36415; 74177; 80053; 81001; 81025; 83690; 85025; 87086; 96360; 96365; 96374; 96375; 99284; J0696; J1885; J2405

== ENCOUNTER 2024-01-14 10:13 | Day surgery (SDC) | payer BC ==
--- NOTE | 2024-01-14 08:12 | HP ---
DATE OF SURGERY: 01/14/2024 HISTORY OF PRESENT ILLNESS: The patient is a 53-year-old with some rectal bleeding in September since a cruise in September, had some clots at times. Family history of grandfather with colon cancer. Last colonoscopy was about three years ago with history of polyps. She denies any pain and does not feel like she has prolapsing hemorrhoids at this time. PAST MEDICAL HISTORY: Hypertension. PAST SURGICAL HISTORY: T&A. section. Hernia repair. Tubal ligation. D&C. MEDICATIONS: Telmisartan/hydrochlorothiazide. ALLERGIES: NKDA. FAMILY HISTORY: Grandfather with colon cancer. SOCIAL HISTORY: Former smoker, occasional alcohol use. REVIEW OF SYSTEMS: Twelve systems reviewed. No chest pain or palpitations. Other systems negative or noncontributory as above and per preadmission questionnaire. PHYSICAL EXAMINATION: Height 5 feet 2 inches. BMI 42.9. GENERAL: No acute distress. HEENT: Sclerae nonicteric. EOMI. Oral mucous membranes moist. NECK: No JVD. CHEST: Equal excursion, nonlabored breathing. CVS: Regular rate and rhythm. ABDOMEN: Soft. No peritoneal signs. EXTREMITIES: No significant edema. NEURO: Alert, oriented, moving extremities symmetrically. RECTAL: Deferred timed to endoscopy exam. PSYCH: Appropriate mood and affect. SKIN: Dry. IMPRESSION: History of some rectal bleeding, history of polyps needs colonoscopy to evaluate for colitis, neoplasia, polyps or other etiology. Shown the risk sheet, explained the procedure in detail including but not limited to risk of bleeding or infection, risk of bowel injury or perforation, risk of missed or nondiagnosis or incomplete exam possibly requiring barium enema, other procedures or referral, general risk of anesthesia or sedation, risk of bowel prep but not limited to. Will proceed with outpatient colonoscopy under MAC anesthesia. Otherwise, continue medication for hypertension.
[2024-01-14 10:47] VITALS: O2SAT 98
[2024-01-14] MEDS: Lactated Ringers 1,000 ML IV SCH (10:47)
[2024-01-14] MEDS ORDERED: Versed 2 MG/2 ML Injection ONE (12:06)
[2024-01-14] MEDS ORDERED: Xylocaine-Mpf 2% 5 Ml Vial ONE (12:07)
[2024-01-14] MEDS ORDERED: DIPRIVAN 200 MG/20 ML IV ONE (12:07)
[2024-01-14] MEDS ORDERED: ROBINUL ONE (12:08)
[2024-01-14 12:57] VITALS: RESP 18
[2024-01-14 13:09] VITALS: BP 126/80; PULSE 64; TEMP 97.4
--- NOTE | 2024-01-14 13:43 | OP ---
SURGERY DATE/TIME: 01/14/2024 1207 PREOPERATIVE DIAGNOSIS: History of some rectal bleeding, prior history of polyps, need for colonoscopy. POSTOPERATIVE DIAGNOSES: 1) Fair bowel prep. 2) ASA Class II. 3) Withdrawal time approximately 10 minutes. 4) Colitis distal descending colon, sigmoid colon and rectum. 5) Mild diverticulosis left colon. PROCEDURES: 1) Colonoscopy to cecum. 2) Random cold biopsies left colon to evaluate for colitis. SURGEON: Dr. Domingo Caballero. ANESTHESIA: MAC. ESTIMATED BLOOD LOSS: Minimal. INDICATIONS: As noted above. Risks and benefits explained in detail but not limited to and consent obtained. DESCRIPTION OF PROCEDURE AND FINDINGS: The patient is taken to the endoscopy room. MAC anesthesia introduced. After official time out and no disagreement with planned procedure, digital rectal exam did not reveal any rectal masses. Video colonoscope passed up through the slightly tortuous sigmoid, descending, transverse and ascending colon around to the cecum. Appendiceal orifice and valve well visualized. Prep overall was fair, a little bit of liquidy semi-solid stool just slightly limiting the exam for small lesions. The scope is slowly and carefully withdrawn over the next ten minutes. ASA Class II. Random cold biopsies are taken in the descending and sigmoid colon to evaluate for colitis as it is quite moderate inflamed colon particular in the distal sigmoid and rectum consistent with colitis. There were no large ulcers. She did have some diverticulosis in the left colon. No signs of any large polyps, masses or obstructing lesions. Random cold biopsies taken in the left colon to evaluate for colitis. Findings discussed with the family out in the waiting area. She was transferred to the recovery room in stable condition. I will see her back in the office next week.
== END 2024-01-14 13:20 | disposition home or self-care (01) ==
LOC: SDC 10:13
PROVIDERS: ATTEND Surgery
DX: Z09 Encounter for follow-up examination after completed treatment for conditions other than malignant neoplasm (principal); Z86.010 Personal history of colon polyps; Z80.0 Family history of malignant neoplasm of digestive organs; K62.5 Hemorrhage of anus and rectum; K52.9 Noninfective gastroenteritis and colitis, unspecified; K57.30 Diverticulosis of large intestine without perforation or abscess without bleeding
CPT/HCPCS: J2250; J2704

== ENCOUNTER 2024-05-27 15:24 | Emergency (ER) | payer BC ==
[2024-05-27 15:53] VITALS: TEMP 97.9
[2024-05-27] MEDS ORDERED: Sodium Chloride 0.9% 1000 ML 1,000 ML ONE (16:01)
[2024-05-27] MEDS ORDERED: ANTIVERT 25 MG ONE (16:01)
--- NOTE | 2024-05-27 16:01 | ERPHSYRPT ---
- History of Present Illness Time Seen by Provider: 05/27/24 15:58 Source: patient Exam Limitations: no limitations Patient Subjective Stated Complaint: Dizziness Triage Nursing Assessment: Patient brought back to ED per w/c and transferred to bed per self. Patient A+O X 3. Patient's skin pink, warm and dry. Patient complains of dizziness since yesterday. Patient states she is also having right lower/mid abdominal pain and headache 04/23. Patient complains of nausea, but denies vomiting. Patient states she has been having blood in stool on and off since last September. Physician History: 53-year-old female presents to our ED with 1 day history of dizziness headache and abdominal pain. Symptoms have been progressive. Symptoms are moderate in intensity. Patient states her dizziness is worse when she moves her head. No trauma no fever no neck pain no photophobia no meningeal signs. No associated chest pain or shortness of breath. Patient states she feels weak as well. Patient's description is very vague of what she is feeling. However she denies chest pain. Patient voices no other complaints or concerns at this time. Portions of this note were created with voice recognition technology. There may be grammatical, spelling, punctuation or sound alike errors Timing/Duration: yesterday Severity: moderate Modifying Factors: Improves With: nothing Associated Symptoms: denies symptoms Allergies/Adverse Reactions: No Known Drug Allergies Allergy (Verified 05/27/24 15:40) Home Medications: Telmisartan/Hydrochlorothiazid [Micardis Hct 40-12.5 mg Tablet] 1 tablet PO DAILY 04/19/21 [History] Omeprazole 1 tab PO DAILY 05/27/24 [History] Hx Tetanus, Diphtheria Vaccination/Date Given: Yes Hx Influenza Vaccination/Date Given: No Hx Pneumococcal Vaccination/Date Given: No Immunizations Up to Date: Yes Travel Risk - International Travel Have you traveled outside of the country in past 3 weeks: No - Emerging Infectious Disease Are you exhibiting symptoms associated with any current EIDs: No - Review of Systems Constitutional: No Symptoms, No Fever, No Chills Eyes: No Symptoms Ears, Nose, & Throat: No Symptoms Respiratory: No Symptoms, No Cough, No Dyspnea Cardiac: No Symptoms, No Chest Pain, No Edema, No Syncope Abdominal/Gastrointestinal: No Symptoms, No Abdominal Pain, No Nausea, No Vomiting, No Diarrhea Genitourinary Symptoms: No Symptoms, No Dysuria Musculoskeletal: No Symptoms, No Back Pain, No Neck Pain Skin: No Symptoms, No Rash Neurological: No Symptoms, No Dizziness, No Focal Weakness, No Sensory Changes Psychological: No Symptoms Endocrine: No Symptoms Hematologic/Lymphatic: No Symptoms Immunological/Allergic: No Symptoms All Other Systems: Reviewed and Negative - Past Medical History Pertinent Past Medical History: Yes Neurological History: No Pertinent History ENT History: No Pertinent History Cardiac History: No Pertinent History Respiratory History: No Pertinent History Endocrine Medical History: No Pertinent History Musculoskeletal History: Other GI Medical History: Hernia History: Other Psycho-Social History: No Pertinent History Female Reproductive Disorders: No Pertinent History Other Medical History: KIDNEY STONE, skin ca - Past Surgical History Past Surgical History: Yes Neuro Surgical History: No Pertinent History Cardiac: No Pertinent History Respiratory: No Pertinent History Gastrointestinal: No Pertinent History Genitourinary: Other Musculoskeletal: No Pertinent History Female Surgical History: Section, Tubal Ligation, Other Other Surgical History: HERNIA SURGERY, D/C,kidney stone, 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 c-sectionx2 - Social History Smoking Status: Former smoker How long have you smoked: years Exposure to second hand smoke: No Drug Use: none Patient Lives Alone: Yes - Social Determinants of Health Will the patient participate in the screening: Yes Do you worry about a steady place to live?: No Do you have any problems with any of the following?: No known problems In the past 12 months,have you had to go without utilities?: No Transportation Issues: No Has anyone in your support network made you feel unsafe?: No Have you or anyone in your house had to go without enough: No - Nursing Vital Signs Nursing Vital Signs: Initial Vital Signs Temperature 97.9 F 05/27/24 15:41 Pulse Rate 72 05/27/24 15:41 Respiratory Rate 20 05/27/24 15:41 Blood Pressure 132/80 05/27/24 15:41 O2 Sat by Pulse Oximetry 95 05/27/24 15:41 Pain Scale Pain Intensity 6 - Physical Exam General Appearance: no apparent distress, alert Eye Exam: PERRL/EOMI, eyes nml inspection Ears, Nose, Throat Exam: normal ENT inspection, TMs normal, pharynx normal, moist mucous membranes Neck Exam: normal inspection, non-tender, supple, full range of motion Respiratory Exam: normal breath sounds, lungs clear, No respiratory distress Cardiovascular Exam: regular rate/rhythm, normal heart sounds, normal peripheral pulses Gastrointestinal/Abdomen Exam: soft, normal bowel sounds, other (Unable to elicit abdominal tenderness or pain), No tenderness, No mass Back Exam: normal inspection, normal range of motion, No CVA tenderness, No vertebral tenderness Extremity Exam: normal inspection, normal range of motion, pelvis stable Neurologic Exam: alert, oriented x 3, cooperative, normal mood/affect, nml cerebellar function, nml station & gait, sensation nml, No motor deficits Skin Exam: normal color, warm, dry, No rash Lymphatic Exam: No adenopathy SpO2 Interpretation: normal SpO2: 95 O2 Delivery: Room Air - Course Nursing assessment & vital signs reviewed: Yes EKG Interpreted by Me: RATE (63), Sinus Rhythm, NORMAL AXIS, NORMAL INTERVALS, NORMAL QRS - CT Exams Head CT Interpretation: Tele-radiologist Report (Normal CT head without contrast) Abdomen/Pelvis CT Interpretation: Tele-radiologist Report (Small hiatal hernia, diverticulosis, fatty liver, uterine fibroid, nephrolithiasis) Ordered Tests: Active Orders 24 hr Category Date Time Status EKG-ER Only STAT Care 05/27/24 16:01 Active IV Insertion STAT Care 05/27/24 15:54 Active Tele-Health Consult ROUTINE Cons 05/27/24 17:42 Active ABDOMEN AND PELVIS W/0 CONTRAS [CT] Stat Exams 05/27/24 15:55 Completed HEAD WITHOUT CONTRAST [CT] Stat Exams 05/27/24 15:56 Completed CBC W DIFF Stat Lab 05/27/24 16:13 Completed CMP Stat Lab 05/27/24 16:13 Completed LIPASE Stat Lab 05/27/24 16:13 Completed TROPONIN Q4H Lab 05/27/24 16:13 Completed TROPONIN Q4H Lab 05/27/24 20:00 Ordered TROPONIN Q4H Lab 05/28/24 00:00 Ordered UA W/RFX UR CULTURE Stat Lab 05/27/24 15:58 Completed Medication Summary Generic Name Dose Route Start Last Admin Trade Name Freq PRN Reason Stop Dose Admin Sodium Chloride 1,000 mls @ 100 mls/hr 05/27/24 16:00 05/27/24 16:04 Sodium Chloride 0.9% 1000 Ml IV 06/26/24 15:59 100 mls/hr .Q10H JOEL Administration Discontinued Medications Generic Name Dose Route Start Last Admin Trade Name Rangel PRN Reason Stop Dose Admin Meclizine HCl 25 mg 05/27/24 15:59 05/27/24 16:03 Meclizine Hcl 25 Mg Tablet PO 05/27/24 16:00 25 mg STAT ONE Administration Meclizine HCl Confirm 05/27/24 16:01 Meclizine Hcl 25 Mg Tablet Administered 05/27/24 16:02 Dose 25 mg .ROUTE .STK-MED ONE Lab/Rad Data: Laboratory Result Diagrams 05/27/24 16:13 05/27/24 16:13 Laboratory Results 05/27/24 05/27/24 05/27/24 Range/Units 16:30 16:13 16:13 WBC (3.98-10.04) x10^3/uL RBC (3.93-5.22) x10^6/uL Hgb (11.2-15.7) g/dL Hct (34.1-44.9) % MCV (79.4-94.8) fL MCH (25.6-32.2) pg MCHC (32.2-35.5) g/dL RDW (11.7-14.4) % Plt Count (182-369) x10^3/uL MPV (9.4-12.3) fL Gran % (34.0-71.1) % Immature Gran % (Auto) (0.001-0.429) % Nucleat RBC Rel Count (0.00-0.2) % Eos # (Auto) (0.04-0.36) x10^3/uL Immature Gran # (Auto) (0.001-0.031) x10^3u/L Absolute Lymphs (auto) (1.18-3.74) x10^3/uL Absolute Monos (auto) (0.24-0.86) x10^3/uL Absolute Nucleated RBC (0.00-0.012) x10^3u/L Lymphocytes % (19.3-51.7) % Monocytes % (4.7-12.5) % Eosinophils % (0.7-5.8) % Basophils % (0.1-1.2) % Absolute Granulocytes (1.56-6.13) x10^3/uL Basophils # (0.01-0.08) x10^3/uL Sodium 138 (135-145) mmol/L Potassium 3.6 (3.5-5.1) mmol/L Chloride 106 (98-107) mmol/L Carbon Dioxide 23 (22-30) mmol/L Anion Gap 12.5 (5-15) MEQ/L BUN 9 (7-17) mg/dL Creatinine 0.60 (0.52-1.04) mg/dL Estimated GFR 105.9 ML/MIN Glucose 183 H (74-106) mg/dL Calcium 9.0 (8.4-10.2) mg/dL Total Bilirubin 0.20 (0.2-1.3) mg/dL AST 29 (14-36) U/L ALT 37 H (0-35) U/L Alkaline Phosphatase 89 (38-126) U/L Troponin I < 0.012 (0.000-0.033) ng/mL Serum Total Protein 6.6 (6.3-8.2) g/dL Albumin 4.0 (3.5-5.0) g/dL Lipase 518 H (23-300) U/L Urine Color (Yellow) Urine Appearance (Clear) Urine pH (4.6-8.0) Ur Specific Nelson (1.005-1.030) Urine Protein (Negative) Urine Glucose (UA) (Negative) mg/dL Urine Ketones (Negative) Urine Blood (Negative) Urine Nitrite (Negative) Urine Bilirubin (Negative) Urine Urobilinogen (0.2) mg/dL Ur Leukocyte Esterase (Negative) U Hyaline Cast (Auto) (0-2) /LPF Urine Microscopic RBC (0-5) /HPF Urine Microscopic WBC (0-5) /HPF Ur Epithelial Cells (None Seen) /HPF Urine Bacteria (None Seen) /HPF Urine Culture Reflexed (NO) Influenza Type A Ag NEGATIVE (NEGATIVE) Influenza Type B Ag NEGATIVE (NEGATIVE) RSV (PCR) NEGATIVE (NEGATIVE) SARS-CoV-2 (PCR) NEGATIVE (NEGATIVE) 05/27/24 05/27/24 Range/Units 16:13 15:58 WBC 5.4 (3.98-10.04) x10^3/uL RBC 4.26 (3.93-5.22) x10^6/uL Hgb 12.2 (11.2-15.7) g/dL Hct 37.9 (34.1-44.9) % MCV 89.0 (79.4-94.8) fL MCH 28.6 (25.6-32.2) pg MCHC 32.2 (32.2-35.5) g/dL RDW 12.7 (11.7-14.4) % Plt Count 280 (182-369) x10^3/uL MPV 8.8 L (9.4-12.3) fL Gran % 56.9 (34.0-71.1) % Immature Gran % (Auto) 0.4 (0.001-0.429) % Nucleat RBC Rel Count 0.0 (0.00-0.2) % Eos # (Auto) 0.38 H (0.04-0.36) x10^3/uL Immature Gran # (Auto) 0.02 (0.001-0.031) x10^3u/L Absolute Lymphs (auto) 1.50 (1.18-3.74) x10^3/uL Absolute Monos (auto) 0.39 (0.24-0.86) x10^3/uL Absolute Nucleated RBC 0.00 (0.00-0.012) x10^3u/L Lymphocytes % 27.8 (19.3-51.7) % Monocytes % 7.2 (4.7-12.5) % Eosinophils % 7.1 H (0.7-5.8) % Basophils % 0.6 (0.1-1.2) % Absolute Granulocytes 3.07 (1.56-6.13) x10^3/uL Basophils # 0.03 (0.01-0.08) x10^3/uL Sodium (135-145) mmol/L Potassium (3.5-5.1) mmol/L Chloride (98-107) mmol/L Carbon Dioxide (22-30) mmol/L Anion Gap (5-15) MEQ/L BUN (7-17) mg/dL Creatinine (0.52-1.04) mg/dL Estimated GFR ML/MIN Glucose (74-106) mg/dL Calcium (8.4-10.2) mg/dL Total Bilirubin (0.2-1.3) mg/dL AST (14-36) U/L ALT (0-35) U/L Alkaline Phosphatase (38-126) U/L Troponin I (0.000-0.033) ng/mL Serum Total Protein (6.3-8.2) g/dL Albumin (3.5-5.0) g/dL Lipase (23-300) U/L Urine Color Yellow (Yellow) Urine Appearance Clear (Clear) Urine pH 6.0 (4.6-8.0) Ur Specific Nelson 1.020 (1.005-1.030) Urine Protein Negative (Negative) Urine Glucose (UA) Negative (Negative) mg/dL Urine Ketones Negative (Negative) Urine Blood Negative (Negative) Urine Nitrite Negative (Negative) Urine Bilirubin Negative (Negative) Urine Urobilinogen 1.0 A (0.2) mg/dL Ur Leukocyte Esterase Negative (Negative) U Hyaline Cast (Auto) NONE SEEN (0-2) /LPF Urine Microscopic RBC 0-2 (0-5) /HPF Urine Microscopic WBC 3-5 (0-5) /HPF Ur Epithelial Cells Few (None Seen) /HPF Urine Bacteria Few A (None Seen) /HPF Urine Culture Reflexed NO (NO) Influenza Type A Ag (NEGATIVE) Influenza Type B Ag (NEGATIVE) RSV (PCR) (NEGATIVE) SARS-CoV-2 (PCR) (NEGATIVE) - Progress Progress: improved Progress Note: 53-year-old female presents to our ED for evaluation of headache, abdominal pain and dizziness. Physical exam essentially unremarkable. No focal or lateralizing symptoms. CT head unremarkable. CT abdomen pelvis shows nonacute findings. Lipase elevated at 518 however patient is asymptomatic has no abdominal pain at this time. Patient received meclizine for dizziness. Dizziness significantly improved. Teleneurologist consultation believes patient's dizziness is vertigo and that no further workup is indicated. Advise discharge with meclizine. A prescription for meclizine forwarded to patient's pharmacy. Patient reassessed. She feels well. Some residual dizziness however better than when she arrived. Patient requesting discharge. Patient agrees to follow-up with her primary care doctor within 48 hours for reevaluation. She voices no other complaints or concerns at this time. Portions of this note were created with voice recognition technology. There may be grammatical, spelling, punctuation or sound alike errors Complexity problem addressed is moderate acute complicated. No critical care time. Complex of data reviewed and analyzed is extensive. Test ordered test reviewed results analyzed and correlated clinically with history and physical examination. Management discussed with neurologist. Risk of complication and or risk of morbidity/mortality patient management is moderate. A prescription for meclizine for it to patient's pharmacy. Vital stable. Time spent to discha rge patient approximately 20 minutes. Plan of care established for shared decision making. No social determinants of health present complete follow-up. Portions of this note were created with voice recognition technology. There may be grammatical, spelling, punctuation or sound alike errors 05/27/24 18:08 Counseled pt/family regarding: lab results, diagnosis, need for follow-up, rad results - Departure Departure Disposition: Home Clinical Impression: Abdominal pain, Elevated lipase, Small hiatal hernia, Diverticulosis, Diffuse fatty liver, Uterine fibroid, Nephrolithiasis, Dizziness, Vertigo Condition: Stable Critical Care Time: No Referrals: LIZZETH MORROW [employer]UR[employer] DEVELOPER [Primary Care Provider] - Follow up/PCP as directed Additional Instructions: Discharge/Care Plan WHITNEYNITHYA NAN was seen on 05/27/24 in the Emergency Room. The patient was counseled regarding Diagnosis,Lab results, Imaging studies, need for follow up and when to return to the Emergency Room. Prescriptions given: Discharge Note I have spoken with the patient and/or caregivers. I have explained the patient's condition, diagnosis and treatment plan based on the information available to me at this time. I have answered the patient's and/or caregiver's questions and addressed any concerns. The patient and/or caregivers have as good understanding of the patient's diagnosis, condition and treatment plan as can be expected at this point. The vital signs have been stable. The patient's condition is stable and appropriate for discharge from the emergency department. The patient will pursue further outpatient evaluation with the primary care physician or other designated or consulting physician as outlined in the discharge instructions. The patient and/or caregivers are agreeable to this plan of care and follow-up instructions have been explained in detail. The patient and/or caregivers have received these instruction. The patient/and or caregivers are aware that any significant change in condition or worsening of symptoms should prompt an immediate return to this or the closest emergency department or call 911. Prescriptions: Meclizine HCl 25 mg [Antivert 25 mg] 25 mg PO DAILY PRN 7 Days #7 tablet PRN Reason: Dizziness
[2024-05-27] MEDS: ANTIVERT 25 MG PO ONE (16:03)
[2024-05-27] MEDS: Sodium Chloride 0.9% 1000 ML 1,000 ML IV SCH (16:04)
[2024-05-27 16:13] LABS: Absolute Neutrophil Ct (ANC) 3.07 x10^3/uL (1.56-6.13); BASOPHIL % 0.6 % (0.1-1.2); Basophil (Absolute #) 0.03 x10^3/uL (0.01-0.08); Eosinophil % 7.1 % (0.7-5.8); Eosinophil (Absolute #) 0.38 x10^3/uL (0.04-0.36); Hematocrit 37.9 % (34.1-44.9); Hemoglobin 12.2 g/dL (11.2-15.7); IMMATURE GRAN # 0.02 x10^3u/L (0.001-0.031); IMMATURE GRAN % 0.4 % (0.001-0.429); Lymphocytes % 27.8 % (19.3-51.7); Mean Corpuscular Hemoglobin 28.6 pg (25.6-32.2); Mean Corpuscular Hgb Concent. 32.2 g/dL (32.2-35.5); Mean Platelet Volume 8.8 fL (9.4-12.3); Monocyte (Absolute #) 0.39 x10^3/uL (0.24-0.86); Monocytes % 7.2 % (4.7-12.5); Neutrophil % 56.9 % (34.0-71.1); Platelet Count 280 x10^3/uL (182-369); Red Blood Count 4.26 x10^6/uL (3.93-5.22); Red Cell Distribution Width 12.7 % (11.7-14.4); White Blood Count 5.4 x10^3/uL (3.98-10.04)
[2024-05-27 16:17] LABS: Appearance Clear (Clear); Bacteria Few /HPF (None Seen); Bilirubin Negative (Negative); Blood Negative (Negative); Epithelial Cells Few /HPF (None Seen); Glucose, Urine Negative (Negative); Hyaline Casts NONE SEEN /LPF (0-2); Ketones Negative (Negative); Leukocyte Esterase Negative (Negative); Nitrite Negative (Negative); Protein,Urine Dip Negative (Negative); RBC 0-2 /HPF (0-5)
[2024-05-27 16:19] LABS: ADD URINE CULTURE? NO (NO)
[2024-05-27 16:28] LABS: ANION GAP 12.5 MEQ/L (5-15); BILIRUBIN,TOTAL 0.2 mg/dL (0.2-1.3); Creatinine 1 0.6 mg/dL (0.52-1.04); EST GLOMERULAR FILTRATION RATE 105.9 ML/MIN; Potassium 3.6 mmol/L (3.5-5.1); Total Protein 6.6 g/dL (6.3-8.2)
--- NOTE | 2024-05-27 17:02 | XRAY ---
Indication: Headache and dizziness. Multiple contiguous axial images obtained through the head without contrast. Comparison: None Normal appearing brain parenchyma, ventricles, or bony calvarium. Visualized paranasal sinuses and mastoid air cells are clear. Impression: Normal CT head noncontrast exam.
[2024-05-27 17:07] LABS: INFLUENZA A NEGATIVE (NEGATIVE); INFLUENZA B NEGATIVE (NEGATIVE); RESPIRATORY SYNCTIAL VIRUS NEGATIVE (NEGATIVE); SARS-CoV-2 Xpert Express NEGATIVE (NEGATIVE)
--- NOTE | 2024-05-27 17:12 | XRAY ---
Indication: Right abdomen pain. Intermittent blood in stool since September 2023. Multiple contiguous axial images obtained through the abdomen and pelvis without contrast. Comparison: October 21, 2023 Lung bases demonstrates minimal subsegmental atelectasis/scarring. No infiltrate or effusion. Heart not enlarged. Stable small hiatal hernia. Noncontrasted stomach and bowel loops appear nonobstructed with normal appendix. Again minimal scattered distal descending and sigmoid diverticulosis. Stable diffuse fatty liver, nonobstructing punctate calculus in each kidney, and tiny uterine calcified fibroid. No free fluid or fluid. Remaining liver, gallbladder, pancreas, spleen, adrenal glands, kidneys, ureters, bladder, and uterus are unremarkable for noncontrast exam. Again minimal aortoiliac calcifications without AAA. Osseous structures intact again with mild degenerative changes throughout the spine and minimal dorsal scoliosis centered at L3. Impression: Again chronic findings including hiatal hernia, colonic diverticulosis, fatty liver, nonobstructing bilateral renal micro-calculus, calcified uterine fibroid, arteriosclerotic disease, and chronic bony findings. No new/acute findings on this noncontrast exam.
--- NOTE | 2024-05-27 17:52 | PCM.CONS ---
History of Present Illness - Neuro Consultation Date of Consultation Date: 05/27/24 ED Arrival Date & Time: 05/27/24 15:24 Providers: Attending Provider: ED Provider: DOMINICK SEGURA Consulting Provider: BERLIN GERARD MD cc:: The requesting physician will be sent a copy of the consult. - Chief Complaint Patient Subjective Stated Complaint: dizziness, headache, abdominal pain STAT Neuro assessment/stroke code: no - History of Present Illness HPI: The patient is a 53F with a history of hypertension and GERD who presents to the ED with a one day history of dizziness, nausea, and headache in the setting of >8 months of intermittent abdominal pain. Patient reports that she woke up in her normal state of health yesterday morning around 0700. She went out and ran some errands. When she came home afterwards, she said she felt exhausted so she took a nap. She noticed that she was having positional dizziness when she awoke from her nap. She states that any head movement significantly worsens her dizziness. She further describes her dizziness as a room-spinning sensation. She has never had this symptom before. Lying still makes her symptoms better. It is associated with nausea and has made walking difficult due to the recurrent nature of her dizziness. She reports that when her dizziness is at its worse, she is not sure if she also has diplopia due to how quickly the room spins. She denies any vision loss, speech changes, weakness, or numnbess during this time. She reports her symptoms are much better now in the ED (recently received meclizine). She thinks it's 88% better. She underwent CTH which showed no acute intracranial abnormality. She takes no antithrombotics at home. Known stroke risk factors:: Hypertension Review of Systems - Review of Systems Review of Systems (Narrative): Pertinent positive and negative findings as per HPI. All other systems negative. - Past Medical History Past Medical History: Yes Neurological History: No Pertinent History ENT History: No Pertinent History Cardiac History: Hypertension Respiratory History: No Pertinent History Endocrine Medical History: No Pertinent History Musculoskelatal History: Other GI Medical History: Hernia History: Other Pyscho-Social History: No Pertinent History Reproductive Disorders: No Pertinent History Comment: KIDNEY STONE, skin ca - Past Surgical History Past Surgical History: Yes Neuro Surgical History: No Pertinent History Cardiac History: No Pertinent History Respiratory Surgery: No Pertinent History GI Surgical History: No Pertinent History Genitourinary Surgical Hx: Other Musculskeletal Surgical Hx: No Pertinent History Female Surgical History: Section, Tubal Ligation, Other Other Surgical History: HERNIA SURGERY, D/C,kidney stone, 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 c-sectionx2 - Social History Smoking Status: Former smoker How long have you smoked: years Exposure to second hand smoke: No Alcohol: Rarely Drug Use: none - Social Determinants of Health Will the patient participate in the screening: Yes Do you worry about a steady place to live?: No Do you have any problems with any of the following?: No known problems In the past 12 months,have you had to go without utilities?: No Have you or anyone in your house had to go without enough: No Transportation Issues: No Has anyone in your support network made you feel unsafe?: No Physical Exam - Vital Signs Vital Signs: Vital Signs - 24 hr 05/27/24 05/27/24 05/27/24 15:41 15:48 16:00 Temperature 97.9 F Pulse Rate 72 Respiratory 20 Rate Blood Pressure 138/87 131/83 Blood Pressure 132/80 [Left Arm] O2 Sat by Pulse 95 94 L 96 Oximetry 05/27/24 05/27/24 05/27/24 16:28 16:30 17:00 Temperature Pulse Rate Respiratory Rate Blood Pressure 131/83 117/94 120/84 Blood Pressure [Left Arm] O2 Sat by Pulse 94 L 96 Oximetry 05/27/24 05/27/24 17:28 17:30 Temperature Pulse Rate Respiratory Rate Blood Pressure 118/78 Blood Pressure [Left Arm] O2 Sat by Pulse 95 97 Oximetry - Physical Exam Tele-Neuro Physical Exam (Narrative): - General Appearance: No acute distress. Resting in bed - HEENT: Normocephalic, Atraumatic, moist mucous membrane - CV: Regular on telemetry- Resp: Work of breathing is normal and non-labored. - Mental Status: Orientation: Alert and oriented to person, place, and time. Follows commands. Language: Speech is clear and language comprehension/naming is normal. - Cranial Nerves: Full eye movements. Normal facial sensation. No facial weakness. Hearing is grossly intact. Head is midline. Tongue is midline - Motor Strength: RUE: Able to maintain anti-gravity for greater than 10 seconds RLE: Able to maintain anti-gravity for greater than 5 seconds LUE: Able to maintain antigravity for greater than 10 seconds LLE: Able to maintain antigravity for greater than 5 seconds - Coordination: Finger to nose: R- normal | L- normal - Sensation: Intact to light touch as performed by nursing staff *Note: Due to inherent limitation of telemedicine, fundoscopic examination, evaluation of muscle tone, reflexes nuchal rigidity and response to noxious stimuli cannot be adequately performed by video. Results - Labs Lab/Micro Results: Lab Results-Last 24 Hours 05/27/24 05/27/24 05/27/24 Range/Units 15:58 16:13 16:13 WBC 5.4 (3.98-10.04) x10^3/uL RBC 4.26 (3.93-5.22) x10^6/uL Hgb 12.2 (11.2-15.7) g/dL Hct 37.9 (34.1-44.9) % MCV 89.0 (79.4-94.8) fL MCH 28.6 (25.6-32.2) pg MCHC 32.2 (32.2-35.5) g/dL RDW 12.7 (11.7-14.4) % Plt Count 280 (182-369) x10^3/uL MPV 8.8 L (9.4-12.3) fL Gran % 56.9 (34.0-71.1) % Immature Gran % (Auto) 0.4 (0.001-0.429) % Nucleat RBC Rel Count 0.0 (0.00-0.2) % Eos # (Auto) 0.38 H (0.04-0.36) x10^3/uL Immature Gran # (Auto) 0.02 (0.001-0.031) x10^3u/L Absolute Lymphs (auto) 1.50 (1.18-3.74) x10^3/uL Absolute Monos (auto) 0.39 (0.24-0.86) x10^3/uL Absolute Nucleated RBC 0.00 (0.00-0.012) x10^3u/L Lymphocytes % 27.8 (19.3-51.7) % Monocytes % 7.2 (4.7-12.5) % Eosinophils % 7.1 H (0.7-5.8) % Basophils % 0.6 (0.1-1.2) % Absolute Granulocytes 3.07 (1.56-6.13) x10^3/uL Basophils # 0.03 (0.01-0.08) x10^3/uL Sodium 138 (135-145) mmol/L Potassium 3.6 (3.5-5.1) mmol/L Chloride 106 (98-107) mmol/L Carbon Dioxide 23 (22-30) mmol/L Anion Gap 12.5 (5-15) MEQ/L BUN 9 (7-17) mg/dL Creatinine 0.60 (0.52-1.04) mg/dL Estimated GFR 105.9 ML/MIN Glucose 183 H (74-106) mg/dL Calcium 9.0 (8.4-10.2) mg/dL Total Bilirubin 0.20 (0.2-1.3) mg/dL AST 29 (14-36) U/L ALT 37 H (0-35) U/L Alkaline Phosphatase 89 (38-126) U/L Troponin I (0.000-0.033) ng/mL Serum Total Protein 6.6 (6.3-8.2) g/dL Albumin 4.0 (3.5-5.0) g/dL Lipase 518 H (23-300) U/L Urine Color Yellow (Yellow) Urine Appearance Clear (Clear) Urine pH 6.0 (4.6-8.0) Ur Specific [place] 1.020 (1.005-1.030) Urine Protein Negative (Negative) Urine Glucose (UA) Negative (Negative) mg/dL Urine Ketones Negative (Negative) Urine Blood Negative (Negative) Urine Nitrite Negative (Negative) Urine Bilirubin Negative (Negative) Urine Urobilinogen 1.0 A (0.2) mg/dL Ur Leukocyte Esterase Negative (Negative) U Hyaline Cast (Auto) NONE SEEN (0-2) /LPF Urine Microscopic RBC 0-2 (0-5) /HPF Urine Microscopic WBC 3-5 (0-5) /HPF Ur Epithelial Cells Few (None Seen) /HPF Urine Bacteria Few A (None Seen) /HPF Urine Culture Reflexed NO (NO) Influenza Type A Ag (NEGATIVE) Influenza Type B Ag (NEGATIVE) RSV (PCR) (NEGATIVE) SARS-CoV-2 (PCR) (NEGATIVE) 05/27/24 05/27/24 Range/Units 16:13 16:30 WBC (3.98-10.04) x10^3/uL RBC (3.93-5.22) x10^6/uL Hgb (11.2-15.7) g/dL Hct (34.1-44.9) % MCV (79.4-94.8) fL MCH (25.6-32.2) pg MCHC (32.2-35.5) g/dL RDW (11.7-14.4) % Plt Count (182-369) x10^3/uL MPV (9.4-12.3) fL Gran % (34.0-71.1) % Immature Gran % (Auto) (0.001-0.429) % Nucleat RBC Rel Count (0.00-0.2) % Eos # (Auto) (0.04-0.36) x10^3/uL Immature Gran # (Auto) (0.001-0.031) x10^3u/L Absolute Lymphs (auto) (1.18-3.74) x10^3/uL Absolute Monos (auto) (0.24-0.86) x10^3/uL Absolute Nucleated RBC (0.00-0.012) x10^3u/L Lymphocytes % (19.3-51.7) % Monocytes % (4.7-12.5) % Eosinophils % (0.7-5.8) % Basophils % (0.1-1.2) % Absolute Granulocytes (1.56-6.13) x10^3/uL Basophils # (0.01-0.08) x10^3/uL Sodium (135-145) mmol/L Potassium (3.5-5.1) mmol/L Chloride (98-107) mmol/L Carbon Dioxide (22-30) mmol/L Anion Gap (5-15) MEQ/L BUN (7-17) mg/dL Creatinine (0.52-1.04) mg/dL Estimated GFR ML/MIN Glucose (74-106) mg/dL Calcium (8.4-10.2) mg/dL Total Bilirubin (0.2-1.3) mg/dL AST (14-36) U/L ALT (0-35) U/L Alkaline Phosphatase (38-126) U/L Troponin I < 0.012 (0.000-0.033) ng/mL Serum Total Protein (6.3-8.2) g/dL Albumin (3.5-5.0) g/dL Lipase (23-300) U/L Urine Color (Yellow) Urine Appearance (Clear) Urine pH (4.6-8.0) Ur Specific [place] (1.005-1.030) Urine Protein (Negative) Urine Glucose (UA) (Negative) mg/dL Urine Ketones (Negative) Urine Blood (Negative) Urine Nitrite (Negative) Urine Bilirubin (Negative) Urine Urobilinogen (0.2) mg/dL Ur Leukocyte Esterase (Negative) U Hyaline Cast (Auto) (0-2) /LPF Urine Microscopic RBC (0-5) /HPF Urine Microscopic WBC (0-5) /HPF Ur Epithelial Cells (None Seen) /HPF Urine Bacteria (None Seen) /HPF Urine Culture Reflexed (NO) Influenza Type A Ag NEGATIVE (NEGATIVE) Influenza Type B Ag NEGATIVE (NEGATIVE) RSV (PCR) NEGATIVE (NEGATIVE) SARS-CoV-2 (PCR) NEGATIVE (NEGATIVE) - Radiology Orders Radiology Orders: Radiology Procedures Category Date Time Status ABDOMEN AND PELVIS W/0 CONTRAS [CT] Stat Exams 05/27/24 15:55 Completed HEAD WITHOUT CONTRAST [CT] Stat Exams 05/27/24 15:56 Completed Impressions & Recommendations - ED Arrival Time ED Arrival Date & Time: ED Arrival Date and Time 05/27/24 15:24 Last known well time: - NIHSS NIHSS: 0 Pre-Admission mRS: 0 Is patient an IV TPA candidate (if no specify reason): No If not, specify reason:: outside time window Is patient a thrombectomy candidate:: No Candidate (No): Reason: Patient is not a candidat Assessment & Plan (1) Dizziness Current Visit: Yes Status: Acute Onset Date: ~05/26/24 Assessment & Plan: Vertigo -Pattern of symptoms and improvement without intervention over last 36 hours most consistent with a peripheral vertigo -No hyperacute stroke treatment is recommended -Agree with symptomatic treatment per ED (meclizine administered with improvement) -No further stroke workup recommended at this time -Return precautions in the event patient develops focal neurological symptoms -Recommendations were discussed with Dr. Segura Code(s): R42 - DIZZINESS AND GIDDINESS - Encounter Encounter: "The entirety of this encounter was performed via Telemedicine using audio and visual "
[2024-05-27 18:33] VITALS: BP 117/78; PULSE 76; RESP 16; O2SAT 95
== END 2024-05-27 18:39 | disposition home or self-care (01) ==
LOC: ED 15:24
DX: R10.9 Unspecified abdominal pain (principal); R74.8 Abnormal levels of other serum enzymes; K44.9 Diaphragmatic hernia without obstruction or gangrene; K57.90 Diverticulosis of intestine, part unspecified, without perforation or abscess without bleeding; K76.0 Fatty (change of) liver, not elsewhere classified; D25.9 Leiomyoma of uterus, unspecified; N20.0 Calculus of kidney; R42 Dizziness and giddiness; R51.9 Headache, unspecified; R53.1 Weakness; Z79.899 Other long term (current) drug therapy
CPT/HCPCS: 0241U; 36000; 36415; 70450; 74176; 80053; 81001; 83690; 84484; 85025; 93005; 99284; A9270-GY

== ENCOUNTER 2024-10-29 00:18 | Emergency (ER) | payer BC ==
[2024-10-29 00:31] VITALS: TEMP 98
--- NOTE | 2024-10-29 00:57 | ERPHSYRPT ---
- History of Present Illness Time Seen by Provider: 10/29/24 00:40 Source: patient Exam Limitations: no limitations Patient Subjective Stated Complaint: LEFT BACK PAIN THAT COMES AROUND TO THE ABDOMEN AND DOWN TO THE GROIN Triage Nursing Assessment: Pt ambulated into ER without diff. Pt c/o left sided flank pain that comes around to LLQ pain of abdomen. Pt has a hx of kidney stones and pt states, "this is how mine always present". Pt is nauseated but no vomiting. Abd lg, obese with active bs x4 quad, tender to LLQ on palpation. LBM 10/28/24. Pt has some urgency and retention with urination. Physician History: Patient is a 53-year-old female with a history of multiple kidney stones presents to our ED with acute onset left flank pain. Patient states her symptoms started approximately 11 PM yesterday evening. Patient was sleeping and awoke with pain. Pain described as an ache that originates in the left posterior flank and radiates down to the groin area. Patient denies observing hematuria. No trauma no fever. Mild nausea no vomiting no diarrhea no rash. Patient's urologist is Dr. Parra. Patient otherwise feels well. She voices no other complaints or concerns at this time. Portions of this note were created with voice recognition technology. There may be grammatical, spelling, punctuation or sound alike errors Timing/Duration: yesterday Severity: moderate Modifying Factors: Improves With: nothing Associated Symptoms: denies symptoms Allergies/Adverse Reactions: budesonide Adverse Reaction (Verified 10/29/24 00:52) Home Medications: Telmisartan/Hydrochlorothiazid [Micardis Hct 40-12.5 mg Tablet] 1 tablet PO DAILY 04/19/21 [History] Omeprazole 1 tab PO DAILY 05/27/24 [History] Gabapentin [Gralise] 300 mg PO HS 10/29/24 [History] Mesalamine 3 tab PO DAILY 10/29/24 [History] Hx Tetanus, Diphtheria Vaccination/Date Given: Yes Hx Influenza Vaccination/Date Given: No Hx Pneumococcal Vaccination/Date Given: No Travel Risk - International Travel Have you traveled outside of the country in past 3 weeks: No - Emerging Infectious Disease Are you exhibiting symptoms associated with any current EIDs: Yes Symptoms: Abdominal Pain - Review of Systems Constitutional: No Symptoms, No Fever, No Chills Eyes: No Symptoms Ears, Nose, & Throat: No Symptoms Respiratory: No Symptoms, No Cough, No Dyspnea Cardiac: No Symptoms, No Chest Pain, No Edema, No Syncope Abdominal/Gastrointestinal: No Symptoms, No Abdominal Pain, No Nausea, No Vomiting, No Diarrhea Genitourinary Symptoms: No Symptoms, No Dysuria Musculoskeletal: No Symptoms, No Back Pain, No Neck Pain Skin: No Symptoms, No Rash Neurological: No Symptoms, No Dizziness, No Focal Weakness, No Sensory Changes Psychological: No Symptoms Endocrine: No Symptoms Hematologic/Lymphatic: No Symptoms Immunological/Allergic: No Symptoms All Other Systems: Reviewed and Negative - Past Medical History Pertinent Past Medical History: Yes Neurological History: No Pertinent History ENT History: No Pertinent History Cardiac History: No Pertinent History Respiratory History: No Pertinent History Endocrine Medical History: No Pertinent History Musculoskeletal History: Other GI Medical History: Hernia History: Other Psycho-Social History: No Pertinent History Female Reproductive Disorders: No Pertinent History Other Medical History: KIDNEY STONE, skin ca, INFLAMED COLON - Past Surgical History Past Surgical History: Yes Neuro Surgical History: No Pertinent History Cardiac: No Pertinent History Respiratory: No Pertinent History Gastrointestinal: Hernia Repair Genitourinary: Other Musculoskeletal: No Pertinent History Female Surgical History: Dilation & Curettage, Section, Tubal Ligation, Other Other Surgical History: HERNIA SURGERY, D/C,kidney stone, 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 c-sectionx2 - Social History Smoking Status: Former smoker How long have you smoked: years Exposure to second hand smoke: Yes Drug Use: none Patient Lives Alone: Yes - Social Determinants of Health Do you worry about a steady place to live?: No Do you have any problems with any of the following?: No known problems In the past 12 months,have you had to go without utilities?: No Transportation Issues: No Has anyone in your support network made you feel unsafe?: No Have you or anyone in your house had to go without enough: No - Nursing Vital Signs Nursing Vital Signs: Initial Vital Signs Temperature 98.0 F 10/29/24 00:30 Pulse Rate 83 10/29/24 00:30 Respiratory Rate 18 10/29/24 00:30 Blood Pressure 133/90 10/29/24 00:30 O2 Sat by Pulse Oximetry 98 10/29/24 00:30 Pain Scale Pain Intensity 2 - Physical Exam General Appearance: no apparent distress, alert Eye Exam: PERRL/EOMI, eyes nml inspection Ears, Nose, Throat Exam: normal ENT inspection, moist mucous membranes Neck Exam: normal inspection, non-tender, supple, full range of motion Respiratory Exam: normal breath sounds, lungs clear, airway intact, No respiratory distress Cardiovascular Exam: regular rate/rhythm, normal heart sounds, normal peripheral pulses Gastrointestinal/Abdomen Exam: soft, normal bowel sounds, other (Left flank tenderness. Left CVA tenderness), No tenderness, No mass Back Exam: normal inspection, normal range of motion, No CVA tenderness, No vertebral tenderness Extremity Exam: normal inspection, normal range of motion, pelvis stable Neurologic Exam: alert, oriented x 3, cooperative, normal mood/affect, sensation nml, No motor deficits Skin Exam: normal color, warm, dry, No rash Lymphatic Exam: No adenopathy SpO2 Interpretation: normal SpO2: 98 O2 Delivery: Room Air - Course Nursing assessment & vital signs reviewed: Yes Ordered Tests: Active Orders 24 hr Category Date Time Status IV Insertion STAT Care 10/29/24 00:49 Active ABDOMEN AND PELVIS W/0 CONTRAS [CT] Stat Exams 10/29/24 00:51 Completed CBC W DIFF Stat Lab 10/29/24 01:00 Completed CMP Stat Lab 10/29/24 01:00 Completed CULTURE,URINE Stat Lab 10/29/24 00:32 Received UA W/RFX UR CULTURE Stat Lab 10/29/24 00:32 Completed Medication Summary Discontinued Medications Generic Name Dose Route Start Last Admin Trade Name Freq PRN Reason Stop Dose Admin Sodium Chloride 1,000 mls @ 999 mls/hr 10/29/24 00:49 10/29/24 01:01 Sodium Chloride 0.9% 1000 Ml IV 10/29/24 01:49 999 mls/hr .Q1H1M STA Administration Sodium Chloride Confirm 10/29/24 00:59 Sodium Chloride 0.9% 1000 Ml Administered 10/29/24 01:00 Dose 1,000 mls @ ud .ROUTE .STK-MED ONE Ketorolac Tromethamine 30 mg 10/29/24 00:49 10/29/24 01:01 Ketorolac Tromethamine 30 Mg/Ml Inj IV 10/29/24 00:50 30 mg STAT ONE Administration Ketorolac Tromethamine Confirm 10/29/24 00:59 Ketorolac Tromethamine 30 Mg/Ml Inj Administered 10/29/24 01:00 Dose 30 mg .ROUTE .STK-MED ONE Ondansetron HCl 4 mg 10/29/24 01:02 10/29/24 01:02 Ondansetron Hcl 4 Mg/2 Ml Vial IV 10/29/24 01:03 4 mg STAT ONE Administration Ondansetron HCl Confirm 10/29/24 00:59 Ondansetron Hcl 4 Mg/2 Ml Vial Administered 10/29/24 01:00 Dose 4 mg .ROUTE .STK-MED ONE Lab/Rad Data: Laboratory Result Diagrams 10/29/24 01:00 10/29/24 01:00 Laboratory Results 10/29/24 10/29/24 10/29/24 Range/Units 01:00 01:00 00:32 WBC 8.9 (3.98-10.04) x10^3/uL RBC 4.97 (3.93-5.22) x10^6/uL Hgb 13.9 (11.2-15.7) g/dL Hct 41.8 (34.1-44.9) % MCV 84.1 (79.4-94.8) fL MCH 28.0 (25.6-32.2) pg MCHC 33.3 (32.2-35.5) g/dL RDW 14.5 H (11.7-14.4) % Plt Count 312 (182-369) x10^3/uL MPV 9.4 (9.4-12.3) fL Gran % 66.4 (34.0-71.1) % Immature Gran % (Auto) 0.3 (0.001-0.429) % Nucleat RBC Rel Count 0.0 (0.00-0.2) % Eos # (Auto) 0.19 (0.04-0.36) x10^3/uL Immature Gran # (Auto) 0.03 (0.001-0.031) x10^3u/L Absolute Lymphs (auto) 2.08 (1.18-3.74) x10^3/uL Absolute Monos (auto) 0.65 (0.24-0.86) x10^3/uL Absolute Nucleated RBC 0.00 (0.00-0.012) x10^3u/L Lymphocytes % 23.3 (19.3-51.7) % Monocytes % 7.3 (4.7-12.5) % Eosinophils % 2.1 (0.7-5.8) % Basophils % 0.6 (0.1-1.2) % Absolute Granulocytes 5.92 (1.56-6.13) x10^3/uL Basophils # 0.05 (0.01-0.08) x10^3/uL Sodium 135 (135-145) mmol/L Potassium 3.8 (3.5-5.1) mmol/L Chloride 101 (98-107) mmol/L Carbon Dioxide 23 (22-30) mmol/L Anion Gap 14.4 (5-15) MEQ/L BUN 14 (7-17) mg/dL Creatinine 0.70 (0.52-1.04) mg/dL Estimated GFR 102.1 ML/MIN Glucose 171 H (74-106) mg/dL Calcium 9.2 (8.4-10.2) mg/dL Total Bilirubin 0.50 (0.2-1.3) mg/dL AST 45 H (14-36) U/L ALT 47 H (0-35) U/L Alkaline Phosphatase 94 (38-126) U/L Serum Total Protein 7.0 (6.3-8.2) g/dL Albumin 4.5 (3.5-5.0) g/dL Urine Color Yellow (Yellow) Urine Appearance Clear (Clear) Urine pH 5.5 (4.6-8.0) Ur Specific [place] 1.025 (1.005-1.030) Urine Protein Trace A (Negative) Urine Glucose (UA) Negative (Negative) mg/dL Urine Ketones Negative (Negative) Urine Blood Moderate A (Negative) Urine Nitrite Negative (Negative) Urine Bilirubin Negative (Negative) Urine Urobilinogen 0.2 (0.2) mg/dL Ur Leukocyte Esterase Negative (Negative) U Hyaline Cast (Auto) NONE SEEN (0-2) /LPF Urine Microscopic RBC 51-100 A (0-5) /HPF Urine Microscopic WBC 3-5 (0-5) /HPF Ur Epithelial Cells Rare (None Seen) /HPF Urine Bacteria Rare A (None Seen) /HPF Urine Culture Reflexed YES (NO) - Progress Progress: improved Progress Note: 53-year-old female history of ureteral lithiasis presents to our ED with acute onset left flank pain. Physical exam reveals CVA tenderness. Some tenderness to the left flank. CT scan reveals a left 3 mm UVJ stone. There is no associated hydronephrosis and hydroureter. Laboratory workup essentially nonremarkable. BUN/creatinine are within normal limits. Urinalysis significant for hematuria however no signs of infection. No UTI. Hematuria likely secondary to identified left ureteral lithiasis. Pain well-controlled. Patient sleeping comfortably. No indication for further workup will discharge home. Patient received a prescription for tamsulosin, Toradol and [place]. Patient sees Dr. Parra urologist. She will follow-up with his office within 48 hours for re evaluation. Patient understands the importance of hydration. Patient voices no other complaints or concerns at this time. Portions of this note were created with voice recognition technology. There may be grammatical, spelling, punctuation or sound alike errors Complexity of problem addressed is moderate acute complicated. No critical care time. Complex of data reviewed and analyzed is moderate. Test ordered test reviewed results analyzed and correlated clinically with history and physical exam. Risk of complication and or risk of morbidity/mortality of patient management is moderate. Patient discharged home with associated prescriptions. Vital stable. Time spent to discharge patient is approximately 15 minutes. Plan of care established for shared decision making. No social determinants of health present to impede follow-up. Portions of this note were created with voice recognition technology. There may be grammatical, spelling, punctuation or sound alike errors 10/29/24 03:28 Counseled pt/family regarding: lab results, diagnosis, rad results - Departure Departure Disposition: Home Clinical Impression: Flank pain, Hydronephrosis, left, Hydroureter, left, left ureterolithiasis, Renal colic on left side Condition: Stable Critical Care Time: No Referrals: LIZZETH MORROW NP [Primary Care Provider] - Follow up/PCP as directed Additional Instructions: Discharge/Care Plan NITHYA WHITNEYAN was seen on 10/29/24 in the Emergency Room. The patient was counseled regarding Diagnosis,Lab results, Imaging studies, need for follow up and when to return to the Emergency Room. Prescriptions given: Discharge Note I have spoken with the patient and/or caregivers. I have explained the patient's condition, diagnosis and treatment plan based on the information available to me at this time. I have answered the patient's and/or caregiver's questions and add ressed any concerns. The patient and/or caregivers have as good understanding of the patient's diagnosis, condition and treatment plan as can be expected at this point. The vital signs have been stable. The patient's condition is stable and appropriate for discharge from the emergency department. The patient will pursue further outpatient evaluation with the primary care physician or other designated or consulting physician as outlined in the discharge instructions. The patient and/or caregivers are agreeable to this plan of care and follow-up instructions have been explained in detail. The patient and/or caregivers have received these instruction. The patient/and or caregivers are aware that any significant change in condition or worsening of symptoms should prompt an immediate return to this or the closest emergency department or call 911. Prescriptions: Hydrocodone/APAP 5/325 [[place] 5/325 mg] 1 each PO Q6H PRN PRN 3 Days #10 tablet MDD 4 PRN Reason: Pain Tamsulosin HCl 0.4 mg [Flomax 0.4 MG] 0.4 mg PO DAILY 14 Days #14 cap Ketorolac Trometh 10 mg Tab [TORAdol 10 MG TABLET] 10 mg PO TID 5 Days #15 tablet
[2024-10-29] MEDS ORDERED: Zofran 4 MG/2 ML VIAL ONE (00:59)
[2024-10-29] MEDS ORDERED: Sodium Chloride 0.9% 1000 ML 1,000 ML ONE (00:59)
[2024-10-29] MEDS ORDERED: TORAdol 30 mg Injection ONE (00:59)
[2024-10-29] MEDS: Sodium Chloride 0.9% 1000 ML 1,000 ML IV STA (01:01)
[2024-10-29] MEDS: TORAdol 30 mg Injection IV ONE (01:01)
[2024-10-29 01:02] LABS: Absolute Neutrophil Ct (ANC) 5.92 x10^3/uL (1.56-6.13); BASOPHIL % 0.6 % (0.1-1.2); Basophil (Absolute #) 0.05 x10^3/uL (0.01-0.08); Eosinophil % 2.1 % (0.7-5.8); Eosinophil (Absolute #) 0.19 x10^3/uL (0.04-0.36); Hematocrit 41.8 % (34.1-44.9); Hemoglobin 13.9 g/dL (11.2-15.7); IMMATURE GRAN # 0.03 x10^3u/L (0.001-0.031); IMMATURE GRAN % 0.3 % (0.001-0.429); Lymphocyte (Absolute #) 2.08 x10^3/uL (1.18-3.74); Lymphocytes % 23.3 % (19.3-51.7); Mean Cell Volume 84.1 fL (79.4-94.8); Mean Corpuscular Hgb Concent. 33.3 g/dL (32.2-35.5); Mean Platelet Volume 9.4 fL (9.4-12.3); Monocyte (Absolute #) 0.65 x10^3/uL (0.24-0.86); Monocytes % 7.3 % (4.7-12.5); Neutrophil % 66.4 % (34.0-71.1); Platelet Count 312 x10^3/uL (182-369); Red Blood Count 4.97 x10^6/uL (3.93-5.22); Red Cell Distribution Width 14.5 % (11.7-14.4); White Blood Count 8.9 x10^3/uL (3.98-10.04)
[2024-10-29] MEDS: Zofran 4 MG/2 ML VIAL IV ONE (01:02)
[2024-10-29 01:03] LABS: Appearance Clear (Clear); Bacteria Rare /HPF (None Seen); Bilirubin Negative (Negative); Blood Moderate (Negative); Epithelial Cells Rare /HPF (None Seen); Glucose, Urine Negative (Negative); Hyaline Casts NONE SEEN /LPF (0-2); Ketones Negative (Negative); Leukocyte Esterase Negative (Negative); Nitrite Negative (Negative); Ph 5.5 (4.6-8.0); Protein,Urine Dip Trace (Negative); RBC 51-100 /HPF (0-5); Specific Gravity 1.025 (1.005-1.030); Urobilinogen 0.2 mg/dL (0.2)
[2024-10-29 01:05] LABS: ALBUMIN 4.5 g/dL (3.5-5.0); ANION GAP 14.4 MEQ/L (5-15); BILIRUBIN,TOTAL 0.5 mg/dL (0.2-1.3); Calcium 9.2 mg/dL (8.4-10.2); Creatinine 1 0.7 mg/dL (0.52-1.04); EST GLOMERULAR FILTRATION RATE 102.1 ML/MIN; Potassium 3.8 mmol/L (3.5-5.1)
[2024-10-29 02:02] VITALS: RESP 18
--- NOTE | 2024-10-29 02:43 | XRAY ---
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 TECHNIQUE: Contiguous axial images were obtained from the level of the diaphragm to the pubic symphysis without intravenous or oral contrast. Coronal and sagittal reconstructions were likewise performed and indicated to increase the sensitivity for detecting clinically relevant pathology. CT scan was performed according to ALARA (as low as reasonable achievable). FINDINGS: The visualized lung bases are clear. Hepatic steatosis. Evaluation of the abdominal and pelvic visceral organs is limited without intravenous contrast. The unenhanced liver, spleen, pancreas, and adrenal glands are grossly unremarkable. The gallbladder is present. The kidneys are normal in size and attenuation without obvious calcification. Right kidney show nonobstructing calculus of size 4 mm in middle calyx. Left kidney shows hydronephrosis and hydroureter up to an obstructing calculus of size 3mm is noted in left vesicoureteric junction. No adenopathy or fluid collections are seen. No evidence of focal or diffuse bowel wall thickening or evidence of bowel obstruction is seen. The appendix is visualized in the right lower quadrant and appears within normal limits. The aorta is normal in caliber. The urinary bladder is normal in contour. Pelvic viscera are grossly unremarkable. No aggressive appearing osseous lesions are identified. IMPRESSION: Right kidney show nonobstructing calculus of size 4 mm in middle calyx. -stable. Left kidney shows hydronephrosis and hydroureter up to an obstructing calculus of size 3mm is noted in left vesicoureteric junction. ( previously noted left renal calculus is seen descent at this level). -new finding. Hepatic steatosis. -stable. Electronically Signed by: Raleigh Vincent MD. (10/29/2024 02:39:04 EST)
[2024-10-29 03:09] VITALS: O2SAT 98
[2024-10-29 04:02] VITALS: BP 111/75; PULSE 65
== END 2024-10-29 03:55 | disposition home or self-care (01) ==
LOC: ED 00:18
DX: N13.2 Hydronephrosis with renal and ureteral calculous obstruction (principal); N23 Unspecified renal colic; Z79.891 Long term (current) use of opiate analgesic; Z79.899 Other long term (current) drug therapy; Z87.442 Personal history of urinary calculi
CPT/HCPCS: 36415; 74176; 80053; 81001; 85025; 87086; 96374; 96375; 99284; J1885; J2405

== ENCOUNTER 2025-07-12 21:47 | Observation (INO) | payer BC ==
[2025-07-12 22:24] LABS: BASOPHIL % 0.3 % (0.1-1.2); Basophil (Absolute #) 0.05 x10^3/uL (0.01-0.08); Eosinophil (Absolute #) 0.13 x10^3/uL (0.04-0.36); Hematocrit 44.5 % (34.1-44.9); Hemoglobin 14.6 g/dL (11.2-15.7); IMMATURE GRAN # 0.08 x10^3u/L (0.001-0.031); IMMATURE GRAN % 0.6 % (0.001-0.429); Lymphocyte (Absolute #) 1.10 x10^3/uL (1.18-3.74); Mean Corpuscular Hemoglobin 28.2 pg (25.6-32.2); Mean Corpuscular Hgb Concent. 32.8 g/dL (32.2-35.5); Monocyte (Absolute #) 0.97 x10^3/uL (0.24-0.86); NUCLEATED RBC # 0.00 x10^3u/L (0.00-0.012); NUCLEATED RBC % 0.0 % (0.00-0.2); Platelet Count 266 x10^3/uL (182-369); Red Blood Count 5.18 x10^6/uL (3.93-5.22); White Blood Count 14.4 x10^3/uL (3.98-10.04)
[2025-07-12] MEDS ORDERED: TYLENOL 325 MG ONE (22:24)
[2025-07-12] MEDS ORDERED: Zofran 4 MG/2 ML VIAL ONE (22:24)
[2025-07-12] MEDS ORDERED: BENADRYL 50 MG/ML ONE (22:24)
[2025-07-12] MEDS: TYLENOL 325 MG PO STA (22:27)
[2025-07-12] MEDS: Zofran 4 MG/2 ML VIAL IV ONE (22:28)
[2025-07-12] MEDS: BENADRYL 50 MG/ML IV ONE (22:28)
[2025-07-12 22:40] LABS: Calcium 9.4 mg/dL (8.4-10.2); Carbon Dioxide 22.0 mmol/L (22-30); Creatinine 1 0.65 mg/dL (0.52-1.04); EST GLOMERULAR FILTRATION RATE 103.3 ML/MIN; Glucose 156.0 mg/dL (74-106); Potassium 3.5 mmol/L (3.5-5.1); SGOT/AST 38.0 U/L (14-36); SGPT/ALT 50.0 U/L (0-35); Total Protein 7.1 g/dL (6.3-8.2)
[2025-07-12 23:03] LABS: INFLUENZA A NEGATIVE (NEGATIVE); INFLUENZA B NEGATIVE (NEGATIVE); RESPIRATORY SYNCTIAL VIRUS NEGATIVE (NEGATIVE); SARS-CoV-2 Xpert Express NEGATIVE (NEGATIVE)
[2025-07-12 23:12] LABS: Glucose, Urine Negative (Negative); Protein,Urine Dip 30 (Negative)
--- NOTE | 2025-07-13 00:28 | ERPHSYRPT ---
- History of Present Illness Time Seen by Provider: 07/12/25 22:05 Source: patient, family Patient Subjective Stated Complaint: patient came into ED by wheelchair drove her shes been chilling nad not feeling well since 4 pm today Triage Nursing Assessment: pt was brought in by wheelchair to drive, able to ambualte to bed, she is alert nad oreitnedx4, states she feels so weak and is cold. pupils perrla3, lung sounds clear, skin diaphoretic and warm to touch. patient is flushed Physician History: HISTORY OF PRESENT ILLNESS 54-year-old female with history of hernia, kidney stone, colitis, skin cancer, and prior tubal ligation presents today with fevers, nausea, vomiting, weakness, and abdominal discomfort that began at 16:00. She reports a low-grade temperature with a maximum of 100.7F and baseline loose bowel movements. She denies chest pain, shortness of breath, urinary symptoms, cough, congestion, upper respiratory symptoms, diarrhea, hematemesis, melena, and hematochezia. No known sick contacts. History provided by patient and . PAST MEDICAL HISTORY - Hernia - Nephrolithiasis - Colitis - Skin cancer PAST SURGICAL HISTORY - Tubal ligation Allergies/Adverse Reactions: gluten Allergy (Verified 07/12/25 23:14) ibuprofen Allergy (Verified 07/12/25 23:14) budesonide Adverse Reaction (Verified 10/29/24 00:52) Home Medications: Telmisartan/Hydrochlorothiazid [Micardis Hct 40-12.5 mg Tablet] 1 tablet PO DAILY 04/19/21 [History] Omeprazole 1 tab PO DAILY 05/27/24 [History] Gabapentin [Gralise] 300 mg PO HS 10/29/24 [History] Mesalamine 3 tab PO DAILY 10/29/24 [History] Metformin HCl 500 mg [Glucophage 500 MG] 500 mg PO BIDWM 07/12/25 [History] Tirzepatide [Mounjaro] 5 mg SQ WEEKLY 07/12/25 [History] hydroCHLOROthiazide [Hydrochlorothiazide] 12.5 mg PO DAILY 07/12/25 [History] Hx Tetanus, Diphtheria Vaccination/Date Given: Yes Hx Influenza Vaccination/Date Given: No Hx Pneumococcal Vaccination/Date Given: No Immunizations Up to Date: Yes Travel Risk - International Travel Have you traveled outside of the country in past 3 weeks: No - Emerging Infectious Disease Are you exhibiting symptoms associated with any current EIDs: No Symptoms: Abdominal Pain - Past Medical History Pertinent Past Medical History: Yes Neurological History: No Pertinent History ENT History: No Pertinent History Cardiac History: No Pertinent History Respiratory History: No Pertinent History Endocrine Medical History: No Pertinent History Musculoskeletal History: Other GI Medical History: Hernia History: Other Psycho-Social History: No Pertinent History Female Reproductive Disorders: No Pertinent History Other Medical History: KIDNEY STONE, skin ca, INFLAMED COLON - Past Surgical History Past Surgical History: Yes Neuro Surgical History: No Pertinent History Cardiac: No Pertinent History Respiratory: No Pertinent History Gastrointestinal: Hernia Repair Genitourinary: Other Musculoskeletal: No Pertinent History Female Surgical History: Dilation & Curettage, Section, Tubal Ligation, Other Other Surgical History: HERNIA SURGERY, D/C,kidney stone, 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 c-sectionx2 - Social History Smoking Status: Former smoker How long have you smoked: years Exposure to second hand smoke: Yes Drug Use: none - Social Determinants of Health Will the patient participate in the screening: Yes Do you worry about a steady place to live?: No Do you have any problems with any of the following?: No known problems In the past 12 months,have you had to go without utilities?: No Transportation Issues: No Has anyone in your support network made you feel unsafe?: No Have you or anyone in your house had to go w/o enough food: No - Nursing Vital Signs Nursing Vital Signs: Initial Vital Signs Temperature 100.7 F 07/12/25 22:01 Pulse Rate 105 H 07/12/25 22:01 Respiratory Rate 16 07/12/25 22:01 Blood Pressure 111/83 07/12/25 22:01 O2 Sat by Pulse Oximetry 98 07/12/25 22:01 Pain Scale Pain Intensity 8 - Physical Exam SpO2: 94 Comments: 07/13/25 01:07 PHYSICAL EXAM Vitals: T max 100.7 F, HR, BP, RR, SpO2 reviewed in chart. General: Alert and oriented. No acute distress. HEENT: Normocephalic. Respiratory: Respirations are non-labored. Symmetrical chest wall expansion. Cardiovascular: Normal peripheral perfusion. No edema. 2+ radial pulse. Tachycardic. GI: Tenderness in the left lower quadrant. Minimal guarding. No rebound. No CVA tenderness. Integumentary: Warm. Musculoskeletal: Moving all extremities. Neurologic: Alert, normal speech. Psychiatric: Appropriate. Ordered Tests: Active Orders 24 hr Category Date Time Status ABDOMEN AND PELVIS W CONTRAST [CT] Stat Exams 07/12/25 22:00 Completed CHEST 1 VIEW (PORTABLE) Stat Exams 07/12/25 22:00 Taken BLOOD CULTURE Stat Lab 07/13/25 00:45 Received CBC W DIFF Stat Lab 07/12/25 22:20 Completed CMP Stat Lab 07/12/25 22:20 Completed CULTURE,URINE Stat Lab 07/12/25 23:04 Received Lactic Acid Stat Lab 07/12/25 23:00 Completed Lactic Acid Stat Lab 07/13/25 00:52 Completed MONO SCREEN Stat Lab 07/12/25 22:20 Completed UA W/RFX UR CULTURE Stat Lab 07/12/25 23:04 Completed Medication Summary Generic Name Dose Route Start Last Admin Trade Name Freq PRN Reason Stop Dose Admin Sodium Chloride 1,000 mls @ 999 mls/hr 07/13/25 00:29 07/13/25 00:33 Sodium Chloride 0.9% 1000 Ml IV 07/13/25 01:29 999 mls/hr .Q1H1M STA Administration Piperacillin Sod/Tazobactam 100 mls @ 200 mls/hr 07/13/25 00:57 Sod 3.375 gm/ Sodium Chloride IV 07/13/25 01:26 STAT STA Discontinued Medications Generic Name Dose Route Start Last Admin Trade Name Freq PRN Reason Stop Dose Admin Acetaminophen 975 mg 07/12/25 21:59 07/12/25 22:27 Acetaminophen 325 Mg Tablet PO 07/12/25 22:00 975 mg STAT STA Administration Acetaminophen Confirm 07/12/25 22:24 Acetaminophen 325 Mg Tablet Administered 07/12/25 22:25 Dose 975 mg .ROUTE .STK-MED ONE Diphenhydramine HCl 25 mg 07/12/25 22:20 07/12/25 22:28 Diphenhydramine Hcl 50 Mg/Ml Vial IV 07/12/25 22:21 25 mg STAT ONE Administration Diphenhydramine HCl Confirm 07/12/25 22:24 Diphenhydramine Hcl 50 Mg/Ml Vial Administered 07/12/25 22:25 Dose 50 mg .ROUTE .STK-MED ONE Sodium Chloride 1,000 mls @ 999 mls/hr 07/12/25 22:01 07/12/25 23:28 Sodium Chloride 0.9% 1000 Ml IV 07/12/25 23:01 Infused .Q1H1M STA Infusion Sodium Chloride Confirm 07/12/25 22:24 Sodium Chloride 0.9% 1000 Ml Administered 07/12/25 22:25 Dose 1,000 mls @ ud .ROUTE .STK-MED ONE Ceftriaxone Sodium 1 gm in 100 mls @ 200 mls/hr 07/13/25 00:30 07/13/25 00:45 Rocephin 1 Gm / 100 Ml Nacl IV 07/13/25 00:59 200 mls/hr STAT ONE 200 mls/hr Administration Sodium Chloride Confirm 07/13/25 00:32 Sodium Chloride 0.9% 1000 Ml Administered 07/13/25 00:33 Dose 1,000 mls @ ud .ROUTE .STK-MED ONE Ceftriaxone Sodium Confirm 07/13/25 00:32 Rocephin 1 Gm / 100 Ml Nacl Administered 07/13/25 00:33 Dose 1 gm in 100 mls @ ud IV .STK-MED ONE Ondansetron HCl 4 mg 07/12/25 22:20 07/12/25 22:28 Ondansetron Hcl 4 Mg/2 Ml Vial IV 07/12/25 22:21 4 mg STAT ONE Administration Ondansetron HCl Confirm 07/12/25 22:24 Ondansetron Hcl 4 Mg/2 Ml Vial Administered 07/12/25 22:25 Dose 4 mg .ROUTE .STK-MED ONE Lab/Rad Data: Laboratory Result Diagrams 07/12/25 22:20 07/12/25 22:20 Laboratory Results 07/13/25 07/12/25 07/12/25 Range/Units 00:52 23:04 23:00 WBC (3.98-10.04) x10^3/uL RBC (3.93-5.22) x10^6/uL Hgb (11.2-15.7) g/dL Hct (34.1-44.9) % MCV (79.4-94.8) fL MCH (25.6-32.2) pg MCHC (32.2-35.5) g/dL RDW (11.7-14.4) % Plt Count (182-369) x10^3/uL MPV (9.4-12.3) fL Gran % (34.0-71.1) % Immature Gran % (Auto) (0.001-0.429) % Nucleat RBC Rel Count (0.00-0.2) % Eos # (Auto) (0.04-0.36) x10^3/uL Immature Gran # (Auto) (0.001-0.031) x10^3u/L Absolute Lymphs (auto) (1.18-3.74) x10^3/uL Absolute Monos (auto) (0.24-0.86) x10^3/uL Absolute Nucleated RBC (0.00-0.012) x10^3u/L Lymphocytes % (19.3-51.7) % Monocytes % (4.7-12.5) % Eosinophils % (0.7-5.8) % Basophils % (0.1-1.2) % Absolute Granulocytes (1.56-6.13) x10^3/uL Basophils # (0.01-0.08) x10^3/uL Sodium (135-145) mmol/L Potassium (3.5-5.1) mmol/L Chloride (98-107) mmol/L Carbon Dioxide (22-30) mmol/L Anion Gap (5-15) MEQ/L BUN (7-17) mg/dL Creatinine (0.52-1.04) mg/dL Estimated GFR ML/MIN Glucose (74-106) mg/dL Lactic Acid 1.4 2.6 H (0.4-2.0) Calcium (8.4-10.2) mg/dL Total Bilirubin (0.2-1.3) mg/dL AST (14-36) U/L ALT (0-35) U/L Alkaline Phosphatase (38-126) U/L Serum Total Protein (6.3-8.2) g/dL Albumin (3.5-5.0) g/dL Urine Color Yellow (Yellow) Urine Appearance Clear (Clear) Urine pH 6.0 (4.6-8.0) Ur Specific [place] 1.025 (1.005-1.030) Urine Protein 30 (Negative) Urine Glucose (UA) Negative (Negative) mg/dL Urine Ketones Trace A (Negative) Urine Blood Negative (Negative) Urine Nitrite Negative (Negative) Urine Bilirubin Negative (Negative) Urine Urobilinogen 1.0 A (0.2) mg/dL Ur Leukocyte Esterase Small A (Negative) U Hyaline Cast (Auto) NONE SEEN (0-2) /LPF Urine Microscopic RBC 3-5 (0-5) /HPF Urine Microscopic WBC 6-10 A (0-5) /HPF Ur Epithelial Cells Few (None Seen) /HPF Urine Bacteria Few A (None Seen) /HPF Urine Culture Reflexed YES (NO) Monoscreen (NEGATIVE) Influenza Type A Ag (NEGATIVE) Influenza Type B Ag (NEGATIVE) RSV (PCR) (NEGATIVE) SARS-CoV-2 (PCR) (NEGATIVE) Group A Strep Antibody (NEGATIVE) 07/12/25 07/12/25 07/12/25 Range/Units 22:20 22:20 22:20 WBC (3.98-10.04) x10^3/uL RBC (3.93-5.22) x10^6/uL Hgb (11.2-15.7) g/dL Hct (34.1-44.9) % MCV (79.4-94.8) fL MCH (25.6-32.2) pg MCHC (32.2-35.5) g/dL RDW (11.7-14.4) % Plt Count (182-369) x10^3/uL MPV (9.4-12.3) fL Gran % (34.0-71.1) % Immature Gran % (Auto) (0.001-0.429) % Nucleat RBC Rel Count (0.00-0.2) % Eos # (Auto) (0.04-0.36) x10^3/uL Immature Gran # (Auto) (0.001-0.031) x10^3u/L Absolute Lymphs (auto) (1.18-3.74) x10^3/uL Absolute Monos (auto) (0.24-0.86) x10^3/uL Absolute Nucleated RBC (0.00-0.012) x10^3u/L Lymphocytes % (19.3-51.7) % Monocytes % (4.7-12.5) % Eosinophils % (0.7-5.8) % Basophils % (0.1-1.2) % Absolute Granulocytes (1.56-6.13) x10^3/uL Basophils # (0.01-0.08) x10^3/uL Sodium (135-145) mmol/L Potassium (3.5-5.1) mmol/L Chloride (98-107) mmol/L Carbon Dioxide (22-30) mmol/L Anion Gap (5-15) MEQ/L BUN (7-17) mg/dL Creatinine (0.52-1.04) mg/dL Estimated GFR ML/MIN Glucose (74-106) mg/dL Lactic Acid (0.4-2.0) Calcium (8.4-10.2) mg/dL Total Bilirubin (0.2-1.3) mg/dL AST (14-36) U/L ALT (0-35) U/L Alkaline Phosphatase (38-126) U/L Serum Total Protein (6.3-8.2) g/dL Albumin (3.5-5.0) g/dL Urine Color (Yellow) Urine Appearance (Clear) Urine pH (4.6-8.0) Ur Specific [place] (1.005-1.030) Urine Protein (Negative) Urine Glucose (UA) (Negative) mg/dL Urine Ketones (Negative) Urine Blood (Negative) Urine Nitrite (Negative) Urine Bilirubin (Negative) Urine Urobilinogen (0.2) mg/dL Ur Leukocyte Esterase (Negative) U Hyaline Cast (Auto) (0-2) /LPF Urine Microscopic RBC (0-5) /HPF Urine Microscopic WBC (0-5) /HPF Ur Epithelial Cells (None Seen) /HPF Urine Bacteria (None Seen) /HPF Urine Culture Reflexed (NO) Monoscreen NEGATIVE (NEGATIVE) Influenza Type A Ag NEGATIVE (NEGATIVE) Influenza Type B Ag NEGATIVE (NEGATIVE) RSV (PCR) NEGATIVE (NEGATIVE) SARS-CoV-2 (PCR) NEGATIVE (NEGATIVE) Group A Strep Antibody NOT DETECTED (NEGATIVE) 07/12/25 07/12/25 Range/Units 22:20 22:20 WBC 14.4 H (3.98-10.04) x10^3/uL RBC 5.18 (3.93-5.22) x10^6/uL Hgb 14.6 (11.2-15.7) g/dL Hct 44.5 (34.1-44.9) % MCV 85.9 (79.4-94.8) fL MCH 28.2 (25.6-32.2) pg MCHC 32.8 (32.2-35.5) g/dL RDW 13.2 (11.7-14.4) % Plt Count 266 (182-369) x10^3/uL MPV 9.5 (9.4-12.3) fL Gran % 83.9 H (34.0-71.1) % Immature Gran % (Auto) 0.6 H (0.001-0.429) % Nucleat RBC Rel Count 0.0 (0.00-0.2) % Eos # (Auto) 0.13 (0.04-0.36) x10^3/uL Immature Gran # (Auto) 0.08 H (0.001-0.031) x10^3u/L Absolute Lymphs (auto) 1.10 L (1.18-3.74) x10^3/uL Absolute Monos (auto) 0.97 H (0.24-0.86) x10^3/uL Absolute Nucleated RBC 0.00 (0.00-0.012) x10^3u/L Lymphocytes % 7.6 L (19.3-51.7) % Monocytes % 6.7 (4.7-12.5) % Eosinophils % 0.9 (0.7-5.8) % Basophils % 0.3 (0.1-1.2) % Absolute Granulocytes 12.11 H (1.56-6.13) x10^3/uL Basophils # 0.05 (0.01-0.08) x10^3/uL Sodium 136 (135-145) mmol/L Potassium 3.5 (3.5-5.1) mmol/L Chloride 104 (98-107) mmol/L Carbon Dioxide 22 (22-30) mmol/L Anion Gap 14.0 (5-15) MEQ/L BUN 12 (7-17) mg/dL Creatinine 0.65 (0.52-1.04) mg/dL Estimated GFR 103.3 ML/MIN Glucose 156 H (74-106) mg/dL Lactic Acid (0.4-2.0) Calcium 9.4 (8.4-10.2) mg/dL Total Bilirubin 0.60 (0.2-1.3) mg/dL AST 38 H (14-36) U/L ALT 50 H (0-35) U/L Alkaline Phosphatase 117 (38-126) U/L Serum Total Protein 7.1 (6.3-8.2) g/dL Albumin 4.5 (3.5-5.0) g/dL Urine Color (Yellow) Urine Appearance (Clear) Urine pH (4.6-8.0) Ur Specific [place] (1.005-1.030) Urine Protein (Negative) Urine Glucose (UA) (Negative) mg/dL Urine Ketones (Negative) Urine Blood (Negative) Urine Nitrite (Negative) Urine Bilirubin (Negative) Urine Urobilinogen (0.2) mg/dL Ur Leukocyte Esterase (Negative) U Hyaline Cast (Auto) (0-2) /LPF Urine Microscopic RBC (0-5) /HPF Urine Microscopic WBC (0-5) /HPF Ur Epithelial Cells (None Seen) /HPF Urine Bacteria (None Seen) /HPF Urine Culture Reflexed (NO) Monoscreen (NEGATIVE) Influenza Type A Ag (NEGATIVE) Influenza Type B Ag (NEGATIVE) RSV (PCR) (NEGATIVE) SARS-CoV-2 (PCR) (NEGATIVE) Group A Strep Antibody (NEGATIVE) - Progress Progress Note: 07/13/25 01:08 SUMMARY 54-year-old female presented with acute onset fever, nausea, vomiting, weakness, and abdominal discomfort. Labs revealed leukocytosis (WBC 14.4) and elevated lactic acid (2.6). CT abdomen/pelvis showed acute diverticulitis without perforation or abscess, hepatomegaly, bulky uterus concerning for fibroids, and cervical lesion. After ED treatment, patient reported improvement on re- examination. Diagnosis of acute diverticulitis with systemic inflammatory response was discussed with patient and , including imaging findings and risks. Admission was recommended for ongoing IV antibiotics and monitoring; patient agreed with plan. IMAGING I reviewed the CT abdomen/pelvis report as demonstrating acute diverticulitis, hepatomegaly, bulky uterus concerning for fibroids, and a lesion identified within the cervix. The study shows no perforation or abscess. LABS Notable laboratory findings included: leukocytosis with WBC 14.4 and lactic acid elevated at 2.6. The following laboratory tests were performed and independently reviewed with results being unremarkable: urinalysis (leukocyte esterase small, bacteriuria), COVID, influenza, and RSV swabs, monoscreen, strep swab, hemoglobin, platelet count, AST, and ALT. MEDICATION/FLUID ADMINISTRATION - Patient was administered Zosyn (piperacillin-tazobactam) in the ED. - Additional dose of ceftriaxone administered in the ED. PATIENT DISCUSSION I discussed available results, including CT findings of diverticulitis, hepatomegaly, fibroids, and a cervical lesion, with the patient and her at the bedside. The patient verbalized understanding. Risks and benefits were discussed. 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 An, and we reviewed the patients history, exam, and work up. We discussed the patients management, including the diagnosis of acute diverticulitis without perforation or abscess, leukocytosis, elevated lactic acid, and concern for sepsis. The hospitalist graciously agreed to accept the patient and will manage their further in-hospital care. MEDICAL DECISION MAKING This 54-year-old female with a history of hernia, kidney stone, colitis, and skin cancer presented with acute onset of fevers, nausea, vomiting, weakness, and abdominal discomfort. She was found to have leukocytosis (WBC 14.4) and an elevated lactic acid of 2.6, meeting SIRS criteria in the setting of infection. CT abdomen/pelvis revealed acute diverticulitis without perforation or abscess, as well as hepatomegaly, a bulky uterus concerning for fibroids, and a cervical lesion. Initial management included broad-spectrum IV antibiotics (Zosyn) administered in the ED as part of the sepsis bundle. The patient was re-examined after treatment and reported symptomatic improvement. Additional laboratory evaluation showed mild AST and ALT elevations, negative COVID, flu, RSV, and strep testing, and urinalysis with small leukocyte esterase and bacteriuria. No anemia or thrombocytopenia was present. Given the diagnosis of acute diverticulitis with systemic inflammatory response and elevated lactic acid, admission is warranted for ongoing IV antibiotics, monitoring for potential clinical deterioration, and further evaluation of incidental imaging findings. The patient and her were informed of the diagnosis and plan, and she agreed with admission. If the patient develops worsening abdominal pain, persistent fever, or hemodynamic instability, escalation of care and surgical consultation will be considered. DISPOSITION Inpatient: Hospital Patient now meets inpatient-level severity for acute diverticulitis with systemic inflammatory response: WBC 14.4, lactic acid 2.6 mmol/L, and CT evidence of infection. Condition: Stable Patient is resting well in room. Discussed case in detail and all results reviewed. Patient agrees with admission to the hospital for further evaluation of their condition. The patient asked questions and I answered until my diagnosis, concerns, and plan for treatment were fully understood. The patient is awake, alert, oriented, coherent, and lucid. The patient is comfortable with admission to the hospital for further evaluation of their condition. Patient verbalized understanding and agrees with plan. - Departure Departure Disposition: Observation Clinical Impression: Sepsis, Diverticulitis, Lesion of cervix Condition: Fair Critical Care Time: No Referrals: LIZZETH MORROW NP [Primary Care Provider, [facility]] - Follow up/PCP as directed
[2025-07-13] MEDS ORDERED: ROCEPHIN 1 GM / 100 ML NaCl 1 GM/100 ML IVPB IV ONE (00:32)
[2025-07-13] MEDS: ROCEPHIN 1 GM / 100 ML NaCl 1 GM/100 ML IVPB IV ONE (00:45)
--- NOTE | 2025-07-13 00:47 | XRAY ---
CLINICAL HISTORY: fever COMPARISON: Comparison is made with CT 10/29/2024 TECHNIQUE: CT of the abdomen and pelvis was performed with IV contrast, with the following protocol: axial images with, and reconstructed coronal and sagittal images. Venous and delayed phases were provided. One of the following dose reduction techniques was utilized for this exam: Automated exposure control, adjustment of the mA and/or kV according to patient size, and use of iterative reconstruction. FINDINGS: Abdomen: Liver: Liver is enlarged, measuring 235 mm in craniocaudal dimensions, with diffusely reduced parenchymal density representing fatty infiltration. No focal lesions, cysts, or masses were identified. Hepatic vasculature and biliary ducts are unremarkable. Gallbladder and Biliary System: The gallbladder measures 71 x 44 mm in size. No wall thickening, pericholecystic fluid, or gallstones were identified. The common bile duct is normal in caliber without dilation. Pancreas: The pancreatic head, body, and tail are visualized and appear normal in size and density. No pancreatic masses or calcifications were noted. The pancreatic duct is not dilated. Spleen: Spleen is within the upper limits of normal, measuring 130 x 123 mm in anterior-posterior x craniocaudal dimension. No splenic lesions or masses were identified. Appendix: The appendix is normal in size without emelia-appendiceal fat stranding and without an appendicolith. No evidence of appendiceal abscess or perforation. Kidneys and Adrenal Glands: Both kidneys are normal in size, shape, and position. Cortical thickness is within normal limits. Redemonstration of a 3.5 mm nonobstructing radiopaque calculus in the superior pole of right kidney. Previously identified left distal ureteric calculus is not visualized on current examination with resolution of left-sided obstructive uropathy. No renal calculi or hydronephrosis on the left side. Normal excretion of contrast is identified from bilateral collecting systems on delayed phases. Adrenal glands are unremarkable with no evidence of masses or hyperplasia. Pelvis: Urinary Bladder: The urinary bladder is collapsed on the current examination. Uterus: The uterus is anteverted and appears mildly bulky. Lobulated contour of the fundus is noted predominantly along its anterior margin, best visualized on sagittal section. A lobulated contour is also identified along the posterior margin. Ovaries: No gross abnormalities noted. Vagina: Normal in contour and wall thickness. Cervix: A hypodense lesion is identified within the cervix posteriorly, best visualized on sagittal and axial sections. It measures 22 x 25 x 29 mm in maximal dimensions. Peritoneal and Retroperitoneal Structures: No free fluid or abnormal fluid collections were identified within the abdomen or pelvis. Subcentimeteric mesenteric lymph nodes were identified. Bowel: Colonic diverticulosis is identified. A segment of colonic wall thickening and pericolonic fat stranding is identified along the distal descending and proximal sigmoid colon representing features of acute diverticulitis. No convincing evidence of perforation or abscess formation. The visualized bowel loops are normal in caliber and appearance. No evidence of bowel obstruction. Bones and Soft Tissues: Degenerative changes are identified in the visualized spine. Mild lumbar disc scoliosis is identified. Lower chest: Mild bibasilar atelectasis is identified. IMPRESSION: 1. Colonic diverticulosis with interval evidence of acute diverticulitis involving a segment of the distal descending and proximal sigmoid colon. No evidence of perforation or abscess formation. 2. Nonvisualization of previously identified left distal ureteric calculus with resolution of associated obstructive uropathy. 3. Stable appearing nonobstructing right-sided nephrolithiasis. 4. Hepatomegaly with diffuse hepatic steatosis. Stable. 5. Bulky uterus with lobulated contour along its anterior margin near the fundus and posterior wall along with a hypodense area within the cervix. These may represent uterine fibroids however, if indicated, an ultrasound pelvis is advised for further evaluation. Electronically Signed by: Cheo Esquivel MD. (07/13/2025 00:46:47 EDT)
[2025-07-13] MEDS ORDERED: PIPERACILLIN/TAZOBACTAM IV ONE ×2 (01:13→05:10)
[2025-07-13] MEDS: MORPHINE SULFATE 4 MG INJ IV PRN (03:12)
--- NOTE | 2025-07-13 03:33 | PCM.HP ---
History of Present Illness - Chief Complaint Chief Complaint: sepsis Date: 07/13/25 History of Present Illness: The patient is a 54-year-old female with a PMH of diverticulosis, nephrolithiasis, and recently diagnosed suspected celiac's who presents to the emergency room with complaints of fever, chills, and abdominal pain. Patient notes that over the past 1 week, she has been experiencing gradually worsening diffuse abdominal discomfort. Reports that more recently the pain is now associated with chills, nausea with multiple episodes of vomiting, as well as some loose stools. Reports that the abdominal pain was 10 out of 10 in maximal intensity, was intermittent, with no clear alleviating or exacerbating features, and occurring throughout the abdomen. At time of interview, reports ongoing abdominal discomfort, rated at a 9 out of 10. Denied experiencing chest discomfort or shortness of breath. She underwent an extensive valuation in the emergency department which was all reviewed. CT abdomen and pelvis revealed findings consistent with acute diver ticulitis with no evidence of perforation or abscess formation along with stable appearing nonobstructing right-sided nephrolithiasis, and diffuse hepatic steatosis. The case was discussed with the ER provider in detail and chart was reviewed. Review of Systems: A complete and thorough review of system was performed and was negative except as stated in the HPI. Physical Examination: General: Well-nourished, in mild distress due to abdominal pain, obese HEENT: Head atruamatic normocephaic, PERRL, no scleral icterus, no oral lesions Cardiovascular: Regular rate and rhythm, S1S2 normal, no murmurs appreciated Respiratory: Clear to auscultation bilaterally, no wheezes, rales, rhonchi Abdomen: Soft, diffuse left-sided mild to moderate tenderness, nondistended, normoactive bowel sounds, no guarding Musculoskeletal: Full range of motion. No obvious swelling or tenderness noted Neurological: Alert and oriented x 3. Strength 5/5 in all extremities grossly, no obvious focal deficits noted Psychiatric: Normal mood, affect, with cohesive thought process Assessment & Plan Sepsis secondary to acute diverticulitis - Continue patient on Zosyn 3.375 g Q6 hourly - Continue with IV fluids normal saline 125 mL/h - Follow-up blood cultures - Clear liquid diet for now - Cardiac monitoring - Pain control with morphine 4 mg every 4 as needed DVT prophylaxis: Lovenox subcu CODE STATUS: Full code Medications & Allergies Home Medications: Home Medication List Omeprazole 1 tab PO DAILY 05/27/24 [History Confirmed 07/12/25] Hydrocodone/APAP 5/325 [[place] 5/325 mg] 1 each PO Q6H PRN PRN 3 Days #10 tablet MDD 4 10/29/24 [Rx Confirmed 07/12/25] Ketorolac Trometh 10 mg Tab [TORAdol 10 MG TABLET] 10 mg PO TID 5 Days #15 tablet 10/29/24 [Rx Confirmed 07/12/25] Mesalamine 3 tab PO DAILY 10/29/24 [History Confirmed 07/12/25] Metformin HCl 500 mg [Glucophage 500 MG] 500 mg PO BIDWM 07/12/25 [History Confirmed 07/12/25] Tirzepatide [Mounjaro] 5 mg SQ WEEKLY 07/12/25 [History Confirmed 07/12/25] hydroCHLOROthiazide [Hydrochlorothiazide] 12.5 mg PO DAILY 07/12/25 [History Confirmed 07/12/25] Allergies/Adverse Reactions: Allergies Allergy/AdvReac Type Severity Reaction Status Date / Time gluten Allergy Verified 07/12/25 23:14 ibuprofen Allergy Verified 07/12/25 23:14 budesonide AdvReac Verified 10/29/24 00:52 - Past Medical History Past Medical History: Yes Neurological History: No Pertinent History ENT History: No Pertinent History Cardiac History: No Pertinent History, High Cholesterol Respiratory History: No Pertinent History Endocrine Medical History: No Pertinent History, Diabetes Type II Musculoskelatal History: Other GI Medical History: Hernia History: Other Pyscho-Social History: No Pertinent History, Anxiety Reproductive Disorders: No Pertinent History Comment: KIDNEY STONE, skin ca, INFLAMED COLON - Past Surgical History Past Surgical History: Yes Neuro Surgical History: No Pertinent History Cardiac History: No Pertinent History Respiratory Surgery: No Pertinent History GI Surgical History: Hernia Repair Genitourinary Surgical Hx: Other Musculskeletal Surgical Hx: No Pertinent History Female Surgical History: Dilation & Curettage, Section, Tubal Ligation, Other Other Surgical History: HERNIA SURGERY, D/C,kidney stone, 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 c-sectionx2 - Social History Smoking Status: Former smoker How long have you smoked: years Exposure to second hand smoke: Yes Alcohol: Occasionally Drug Use: none - Social Determinants of Health Will the patient participate in the screening: Yes Do you worry about a steady place to live?: No Do you have any problems with any of the following?: No known problems In the past 12 months,have you had to go without utilities?: No Have you or anyone in your house had to go without enough: No Transportation Issues: No Has anyone in your support network made you feel unsafe?: No Does the patient want assistance with any of the above?: No - Physical Exam Vital Signs: Vital Signs - 24 hr Temp Pulse Resp BP BP Pulse Ox 07/13/25 02:11 97.7 F 83 18 110/57 94 L 07/13/25 01:30 92 H 21 95/56 96 07/13/25 01:13 94 L 07/13/25 01:00 90 22 105/58 93 L 07/13/25 00:57 90 18 107/64 95 07/13/25 00:30 92 H 21 102/58 96 07/13/25 00:00 93 H 21 104/58 94 L 07/12/25 23:30 91 H 22 101/57 93 L 07/12/25 23:19 97 H 27 H 111/61 93 L 07/12/25 23:00 96 H 24 111/61 95 07/12/25 22:01 100.7 F 95 H 29 H 111/83 111/83 93 L Results - Labs Lab/Micro Results: Lab Results-Last 24 Hours 07/12/25 07/12/25 07/12/25 Range/Units 22:20 22:20 22:20 WBC 14.4 H (3.98-10.04) x10^3/uL RBC 5.18 (3.93-5.22) x10^6/uL Hgb 14.6 (11.2-15.7) g/dL Hct 44.5 (34.1-44.9) % MCV 85.9 (79.4-94.8) fL MCH 28.2 (25.6-32.2) pg MCHC 32.8 (32.2-35.5) g/dL RDW 13.2 (11.7-14.4) % Plt Count 266 (182-369) x10^3/uL MPV 9.5 (9.4-12.3) fL Gran % 83.9 H (34.0-71.1) % Immature Gran % (Auto) 0.6 H (0.001-0.429) % Nucleat RBC Rel Count 0.0 (0.00-0.2) % Eos # (Auto) 0.13 (0.04-0.36) x10^3/uL Immature Gran # (Auto) 0.08 H (0.001-0.031) x10^3u/L Absolute Lymphs (auto) 1.10 L (1.18-3.74) x10^3/uL Absolute Monos (auto) 0.97 H (0.24-0.86) x10^3/uL Absolute Nucleated RBC 0.00 (0.00-0.012) x10^3u/L Lymphocytes % 7.6 L (19.3-51.7) % Monocytes % 6.7 (4.7-12.5) % Eosinophils % 0.9 (0.7-5.8) % Basophils % 0.3 (0.1-1.2) % Absolute Granulocytes 12.11 H (1.56-6.13) x10^3/uL Basophils # 0.05 (0.01-0.08) x10^3/uL Sodium 136 (135-145) mmol/L Potassium 3.5 (3.5-5.1) mmol/L Chloride 104 (98-107) mmol/L Carbon Dioxide 22 (22-30) mmol/L Anion Gap 14.0 (5-15) MEQ/L BUN 12 (7-17) mg/dL Creatinine 0.65 (0.52-1.04) mg/dL Estimated GFR 103.3 ML/MIN Glucose 156 H (74-106) mg/dL Lactic Acid (0.4-2.0) Calcium 9.4 (8.4-10.2) mg/dL Total Bilirubin 0.60 (0.2-1.3) mg/dL AST 38 H (14-36) U/L ALT 50 H (0-35) U/L Alkaline Phosphatase 117 (38-126) U/L Serum Total Protein 7.1 (6.3-8.2) g/dL Albumin 4.5 (3.5-5.0) g/dL Urine Color (Yellow) Urine Appearance (Clear) Urine pH (4.6-8.0) Ur Specific [place] (1.005-1.030) Urine Protein (Negative) Urine Glucose (UA) (Negative) mg/dL Urine Ketones (Negative) Urine Blood (Negative) Urine Nitrite (Negative) Urine Bilirubin (Negative) Urine Urobilinogen (0.2) mg/dL Ur Leukocyte Esterase (Negative) U Hyaline Cast (Auto) (0-2) /LPF Urine Microscopic RBC (0-5) /HPF Urine Microscopic WBC (0-5) /HPF Ur Epithelial Cells (None Seen) /HPF Urine Bacteria (None Seen) /HPF Urine Culture Reflexed (NO) Monoscreen (NEGATIVE) Influenza Type A Ag (NEGATIVE) Influenza Type B Ag (NEGATIVE) RSV (PCR) (NEGATIVE) SARS-CoV-2 (PCR) (NEGATIVE) Group A Strep Antibody NOT DETECTED (NEGATIVE) 07/12/25 07/12/25 07/12/25 Range/Units 22:20 22:20 23:00 WBC (3.98-10.04) x10^3/uL RBC (3.93-5.22) x10^6/uL Hgb (11.2-15.7) g/dL Hct (34.1-44.9) % MCV (79.4-94.8) fL MCH (25.6-32.2) pg MCHC (32.2-35.5) g/dL RDW (11.7-14.4) % Plt Count (182-369) x10^3/uL MPV (9.4-12.3) fL Gran % (34.0-71.1) % Immature Gran % (Auto) (0.001-0.429) % Nucleat RBC Rel Count (0.00-0.2) % Eos # (Auto) (0.04-0.36) x10^3/uL Immature Gran # (Auto) (0.001-0.031) x10^3u/L Absolute Lymphs (auto) (1.18-3.74) x10^3/uL Absolute Monos (auto) (0.24-0.86) x10^3/uL Absolute Nucleated RBC (0.00-0.012) x10^3u/L Lymphocytes % (19.3-51.7) % Monocytes % (4.7-12.5) % Eosinophils % (0.7-5.8) % Basophils % (0.1-1.2) % Absolute Granulocytes (1.56-6.13) x10^3/uL Basophils # (0.01-0.08) x10^3/uL Sodium (135-145) mmol/L Potassium (3.5-5.1) mmol/L Chloride (98-107) mmol/L Carbon Dioxide (22-30) mmol/L Anion Gap (5-15) MEQ/L BUN (7-17) mg/dL Creatinine (0.52-1.04) mg/dL Estimated GFR ML/MIN Glucose (74-106) mg/dL Lactic Acid 2.6 H (0.4-2.0) Calcium (8.4-10.2) mg/dL Total Bilirubin (0.2-1.3) mg/dL AST (14-36) U/L ALT (0-35) U/L Alkaline Phosphatase (38-126) U/L Serum Total Protein (6.3-8.2) g/dL Albumin (3.5-5.0) g/dL Urine Color (Yellow) Urine Appearance (Clear) Urine pH (4.6-8.0) Ur Specific [place] (1.005-1.030) Urine Protein (Negative) Urine Glucose (UA) (Negative) mg/dL Urine Ketones (Negative) Urine Blood (Negative) Urine Nitrite (Negative) Urine Bilirubin (Negative) Urine Urobilinogen (0.2) mg/dL Ur Leukocyte Esterase (Negative) U Hyaline Cast (Auto) (0-2) /LPF Urine Microscopic RBC (0-5) /HPF Urine Microscopic WBC (0-5) /HPF Ur Epithelial Cells (None Seen) /HPF Urine Bacteria (None Seen) /HPF Urine Culture Reflexed (NO) Monoscreen NEGATIVE (NEGATIVE) Influenza Type A Ag NEGATIVE (NEGATIVE) Influenza Type B Ag NEGATIVE (NEGATIVE) RSV (PCR) NEGATIVE (NEGATIVE) SARS-CoV-2 (PCR) NEGATIVE (NEGATIVE) Group A Strep Antibody (NEGATIVE) 07/12/25 07/13/25 Range/Units 23:04 00:52 WBC (3.98-10.04) x10^3/uL RBC (3.93-5.22) x10^6/uL Hgb (11.2-15.7) g/dL Hct (34.1-44.9) % MCV (79.4-94.8) fL MCH (25.6-32.2) pg MCHC (32.2-35.5) g/dL RDW (11.7-14.4) % Plt Count (182-369) x10^3/uL MPV (9.4-12.3) fL Gran % (34.0-71.1) % Immature Gran % (Auto) (0.001-0.429) % Nucleat RBC Rel Count (0.00-0.2) % Eos # (Auto) (0.04-0.36) x10^3/uL Immature Gran # (Auto) (0.001-0.031) x10^3u/L Absolute Lymphs (auto) (1.18-3.74) x10^3/uL Absolute Monos (auto) (0.24-0.86) x10^3/uL Absolute Nucleated RBC (0.00-0.012) x10^3u/L Lymphocytes % (19.3-51.7) % Monocytes % (4.7-12.5) % Eosinophils % (0.7-5.8) % Basophils % (0.1-1.2) % Absolute Granulocytes (1.56-6.13) x10^3/uL Basophils # (0.01-0.08) x10^3/uL Sodium (135-145) mmol/L Potassium (3.5-5.1) mmol/L Chloride (98-107) mmol/L Carbon Dioxide (22-30) mmol/L Anion Gap (5-15) MEQ/L BUN (7-17) mg/dL Creatinine (0.52-1.04) mg/dL Estimated GFR ML/MIN Glucose (74-106) mg/dL Lactic Acid 1.4 (0.4-2.0) Calcium (8.4-10.2) mg/dL Total Bilirubin (0.2-1.3) mg/dL AST (14-36) U/L ALT (0-35) U/L Alkaline Phosphatase (38-126) U/L Serum Total Protein (6.3-8.2) g/dL Albumin (3.5-5.0) g/dL Urine Color Yellow (Yellow) Urine Appearance Clear (Clear) Urine pH 6.0 (4.6-8.0) Ur Specific [place] 1.025 (1.005-1.030) Urine Protein 30 (Negative) Urine Glucose (UA) Negative (Negative) mg/dL Urine Ketones Trace A (Negative) Urine Blood Negative (Negative) Urine Nitrite Negative (Negative) Urine Bilirubin Negative (Negative) Urine Urobilinogen 1.0 A (0.2) mg/dL Ur Leukocyte Esterase Small A (Negative) U Hyaline Cast (Auto) NONE SEEN (0-2) /LPF Urine Microscopic RBC 3-5 (0-5) /HPF Urine Microscopic WBC 6-10 A (0-5) /HPF Ur Epithelial Cells Few (None Seen) /HPF Urine Bacteria Few A (None Seen) /HPF Urine Culture Reflexed YES (NO) Monoscreen (NEGATIVE) Influenza Type A Ag (NEGATIVE) Influenza Type B Ag (NEGATIVE) RSV (PCR) (NEGATIVE) SARS-CoV-2 (PCR) (NEGATIVE) Group A Strep Antibody (NEGATIVE) - Radiology Impressions Radiology Exams & Impressions: Radiology Procedures Category Date Time Status ABDOMEN AND PELVIS W CONTRAST [CT] Stat Exams 07/12/25 22:00 Completed CHEST 1 VIEW (PORTABLE) Stat Exams 07/12/25 22:00 Taken Telemedicine Encounter - Telemedicine Encounter Telemedicine Encounter: "The entirety of this encounter was performed via Telemedicine" This visit was performed using real-time audio and video connection between my location and thepatients locationwith the assistance of a surrogateat the patients location. Written or verbal consent was obtained from the patient/guardian to perform this visit [email or web address] technology. Any patient questions regarding the telemedicine interaction were answered.
[2025-07-13] MEDS: IMODIUM 2 MG PO ONE (04:24)
[2025-07-13] MEDS ORDERED: MORPHINE SULFATE 4 MG INJ IV PRN (07:19)
[2025-07-13 07:50] LABS: BASOPHIL % 0.3 % (0.1-1.2); Basophil (Absolute #) 0.03 x10^3/uL (0.01-0.08); Eosinophil (Absolute #) 0.11 x10^3/uL (0.04-0.36); Hematocrit 41.0 % (34.1-44.9); Hemoglobin 13.2 g/dL (11.2-15.7); IMMATURE GRAN # 0.03 x10^3u/L (0.001-0.031); IMMATURE GRAN % 0.3 % (0.001-0.429); Lymphocyte (Absolute #) 1.40 x10^3/uL (1.18-3.74); Mean Corpuscular Hemoglobin 28.6 pg (25.6-32.2); Mean Corpuscular Hgb Concent. 32.2 g/dL (32.2-35.5); Monocyte (Absolute #) 0.73 x10^3/uL (0.24-0.86); NUCLEATED RBC # 0.00 x10^3u/L (0.00-0.012); NUCLEATED RBC % 0.0 % (0.00-0.2); Platelet Count 232 x10^3/uL (182-369); Red Blood Count 4.61 x10^6/uL (3.93-5.22); White Blood Count 9.2 x10^3/uL (3.98-10.04)
[2025-07-13 08:04] LABS: Calcium 8.0 mg/dL (8.4-10.2); Carbon Dioxide 25.0 mmol/L (22-30); Creatinine 1 0.69 mg/dL (0.52-1.04); EST GLOMERULAR FILTRATION RATE 101.8 ML/MIN; Glucose 95.0 mg/dL (74-106); Potassium 3.6 mmol/L (3.5-5.1); SGOT/AST 352.0 U/L (14-36); SGPT/ALT 218.0 U/L (0-35); Total Protein 5.9 g/dL (6.3-8.2)
--- NOTE | 2025-07-13 08:37 | XRAY ---
Indication: Fever. Comparison: May 29, 2018 Portable chest again demonstrates minimal right base subsegmental atelectasis/scarring. Remaining heart and lungs normal. Bony thorax intact. No new/acute findings.
[2025-07-13] MEDS ORDERED: HUMALOG SQ PRN (08:38)
[2025-07-13] MEDS: NORCO 5/325 MG PO PRN (09:03)
[2025-07-13] MEDS: ENOXAPARIN SODIUM SQ SCH (10:05)
[2025-07-13] MEDS: LEVOFLOXACIN 750MG/150ML D5W 750 MG/150 ML BAG IV STA (10:05)
[2025-07-13] MEDS: FLAGYL 500 MG IVPB 500 MG/100 ML BAG IV SCH (12:41)
[2025-07-13] MEDS: Zofran 4 MG/2 ML VIAL IV PRN (15:48)
[2025-07-13] MEDS: TYLENOL 325 MG PO PRN (20:52)
[2025-07-14 05:14] LABS: BASOPHIL % 0.4 % (0.1-1.2); Basophil (Absolute #) 0.05 x10^3/uL (0.01-0.08); Eosinophil (Absolute #) 0.06 x10^3/uL (0.04-0.36); Hematocrit 41.8 % (34.1-44.9); Hemoglobin 13.2 g/dL (11.2-15.7); IMMATURE GRAN # 0.08 x10^3u/L (0.001-0.031); IMMATURE GRAN % 0.6 % (0.001-0.429); Lymphocyte (Absolute #) 1.53 x10^3/uL (1.18-3.74); Mean Corpuscular Hemoglobin 27.9 pg (25.6-32.2); Mean Corpuscular Hgb Concent. 31.6 g/dL (32.2-35.5); Monocyte (Absolute #) 1.01 x10^3/uL (0.24-0.86); NUCLEATED RBC # 0.00 x10^3u/L (0.00-0.012); NUCLEATED RBC % 0.0 % (0.00-0.2); Platelet Count 231 x10^3/uL (182-369); Red Blood Count 4.73 x10^6/uL (3.93-5.22); White Blood Count 14.0 x10^3/uL (3.98-10.04)
[2025-07-14 05:31] LABS: Calcium 8.3 mg/dL (8.4-10.2); Carbon Dioxide 22.0 mmol/L (22-30); Creatinine 1 0.62 mg/dL (0.52-1.04); EST GLOMERULAR FILTRATION RATE 104.5 ML/MIN; Glucose 112.0 mg/dL (74-106); Potassium 3.7 mmol/L (3.5-5.1); SGOT/AST 76.0 U/L (14-36); SGPT/ALT 151.0 U/L (0-35); Total Protein 6.2 g/dL (6.3-8.2)
[2025-07-14] MEDS: LEVOFLOXACIN 750MG/150ML D5W 750 MG/150 ML BAG IV SCH (08:59)
--- NOTE | 2025-07-14 10:01 | PCM.NOTE ---
Date and Time: 07/14/25 0956 Subjective Assessment: Ms. Godoy is a 54-year-old female with a past medical history of diverticulosis, type 2 diabetes mellitus, hyperlipidemia, nephrolithiasis, and a recently diagnosed suspected celiac disease who presented to the emergency department with fever, chills, and abdominal pain. Over the past week she has experienced gradually worsening diffuse abdominal discomfort that has now progressed to severe intermittent abdominal pain, rated 10/10 at worst, associated with chills, nausea, vomiting, and loose stools. At the time of interview she continued to endorse left lower quadrant aching pain, rated 9/10, with tenderness to palpation, as well as nausea and dry heaves. She denied chest pain or dyspnea. Initial evaluation included CT of the abdomen and pelvis, which demonstrated colonic diverticulosis with acute diverticulitis involving the distal descending and proximal sigmoid colon without evidence of perforation or abscess. Imaging also showed resolution of a previously identified left distal ureteral stone with no obstructive uropathy, stable non-obstructing right-sided nephrolithiasis, hepatomegaly with diffuse hepatic steatosis, and uterine fibroid changes versus cervical hypodensity for which pelvic ultrasound was recommended OP. Portable chest X-ray showed only minimal right basilar atelecta sis/scarring without acute cardiopulmonary findings. Laboratory evaluation on 07/14 revealed leukocytosis with WBC 14, mild hyponatremia with Na 134, and elevated transaminases (AST 76, ALT 151) that were down-trending. Temperature was noted at 99.9F overnight. 07/14: Patient continues to report ongoing abdominal discomfort, primarily localized to the left lower quadrant, described as a constant aching pain rated 9/10 in intensity. She endorses persistent nausea with intermittent dry heaves, with minimal relief from antiemetic therapy. She states she had chills overnight and notes her temperature was elevated to 99.9F. She denies chest pain, palpitations, or shortness of breath. No new urinary symptoms. Oral intake remains poor, tolerating only sips of clear liquids. - Review of Systems Constitutional: Fever, Chills, Weakness Eyes: No Symptoms Ears, Nose, & Throat: No Symptoms Respiratory: Cough Cardiac: No Symptoms Abdominal/Gastrointestinal: Abdominal Pain, Nausea, Other (dry heaves) Genitourinary Symptoms: No Symptoms Musculoskeletal: No Symptoms Skin: No Symptoms Neurological: No Symptoms Psychological: No Symptoms Endocrine: No Symptoms Hematologic/Lymphatic: No Symptoms Immunological/Allergic: No Symptoms Objective Exam General Appearance: no apparent distress Neurologic Exam: alert, oriented x 3, cooperative Skin Exam: normal color Eye Exam: PERRL Ears, Nose, Throat Exam: normal ENT inspection Neck Exam: normal inspection Respiratory Exam: normal breath sounds, lungs clear Cardiovascular Exam: regular rate/rhythm, normal heart sounds Gastrointestinal/Abdomen Exam: soft, normal bowel sounds, tenderness (TTP LLQ) Extremity Exam: normal inspection Back Exam: normal inspection Pelvic Exam: deferred Rectal Exam: deferred Objective Data Vital Signs: Vital Signs - 24 hr Temp Pulse Resp BP Pulse Ox 07/14/25 08:16 98.0 F 79 16 120/69 95 07/14/25 04:54 99.4 F 90 18 118/58 91 L 07/13/25 23:41 98.7 F 89 16 109/53 93 L 07/13/25 21:54 98.9 F 07/13/25 19:47 99.9 F 81 15 130/68 92 L 07/13/25 16:00 98.3 F 79 18 116/55 93 L 07/13/25 11:31 98.0 F 77 20 95/50 92 L Pain Assessment - Last Documented Pain Intensity 5 Pain Scale Used 0-10 Pain Scale Intake and Output: Intake & Output 07/11/25 07/12/25 07/13/25 07/14/25 11:59 11:59 11:59 11:59 Intake Total 240 3691 Balance 240 3691 Weight 100.8 kg Lab Results: Lab Results-Last 24 Hours 07/13/25 07/13/25 07/13/25 Range/Units 11:11 16:14 21:59 WBC (3.98-10.04) x10^3/uL RBC (3.93-5.22) x10^6/uL Hgb (11.2-15.7) g/dL Hct (34.1-44.9) % MCV (79.4-94.8) fL MCH (25.6-32.2) pg MCHC (32.2-35.5) g/dL RDW (11.7-14.4) % Plt Count (182-369) x10^3/uL MPV (9.4-12.3) fL Gran % (34.0-71.1) % Immature Gran % (Auto) (0.001-0.429) % Nucleat RBC Rel Count (0.00-0.2) % Eos # (Auto) (0.04-0.36) x10^3/uL Immature Gran # (Auto) (0.001-0.031) x10^3u/L Absolute Lymphs (auto) (1.18-3.74) x10^3/uL Absolute Monos (auto) (0.24-0.86) x10^3/uL Absolute Nucleated RBC (0.00-0.012) x10^3u/L Lymphocytes % (19.3-51.7) % Monocytes % (4.7-12.5) % Eosinophils % (0.7-5.8) % Basophils % (0.1-1.2) % Absolute Granulocytes (1.56-6.13) x10^3/uL Basophils # (0.01-0.08) x10^3/uL Sodium (135-145) mmol/L Potassium (3.5-5.1) mmol/L Chloride (98-107) mmol/L Carbon Dioxide (22-30) mmol/L Anion Gap (5-15) MEQ/L BUN (7-17) mg/dL Creatinine (0.52-1.04) mg/dL Estimated GFR ML/MIN Glucose (74-106) mg/dL POC Glucometer 99 101 117 H (74 to 106) mg/dL Calcium (8.4-10.2) mg/dL Total Bilirubin (0.2-1.3) mg/dL AST (14-36) U/L ALT (0-35) U/L Alkaline Phosphatase (38-126) U/L Serum Total Protein (6.3-8.2) g/dL Albumin (3.5-5.0) g/dL 07/14/25 07/14/25 07/14/25 Range/Units 04:29 04:29 07:31 WBC 14.0 H (3.98-10.04) x10^3/uL RBC 4.73 (3.93-5.22) x10^6/uL Hgb 13.2 (11.2-15.7) g/dL Hct 41.8 (34.1-44.9) % MCV 88.4 (79.4-94.8) fL MCH 27.9 (25.6-32.2) pg MCHC 31.6 L (32.2-35.5) g/dL RDW 13.5 (11.7-14.4) % Plt Count 231 (182-369) x10^3/uL MPV 9.8 (9.4-12.3) fL Gran % 80.5 H (34.0-71.1) % Immature Gran % (Auto) 0.6 H (0.001-0.429) % Nucleat RBC Rel Count 0.0 (0.00-0.2) % Eos # (Auto) 0.06 (0.04-0.36) x10^3/uL Immature Gran # (Auto) 0.08 H (0.001-0.031) x10^3u/L Absolute Lymphs (auto) 1.53 (1.18-3.74) x10^3/uL Absolute Monos (auto) 1.01 H (0.24-0.86) x10^3/uL Absolute Nucleated RBC 0.00 (0.00-0.012) x10^3u/L Lymphocytes % 10.9 L (19.3-51.7) % Monocytes % 7.2 (4.7-12.5) % Eosinophils % 0.4 L (0.7-5.8) % Basophils % 0.4 (0.1-1.2) % Absolute Granulocytes 11.28 H (1.56-6.13) x10^3/uL Basophils # 0.05 (0.01-0.08) x10^3/uL Sodium 134 L (135-145) mmol/L Potassium 3.7 (3.5-5.1) mmol/L Chloride 105 (98-107) mmol/L Carbon Dioxide 22 (22-30) mmol/L Anion Gap 11.1 (5-15) MEQ/L BUN 5 L (7-17) mg/dL Creatinine 0.62 (0.52-1.04) mg/dL Estimated GFR 104.5 ML/MIN Glucose 112 H (74-106) mg/dL POC Glucometer 110 H (74 to 106) mg/dL Calcium 8.3 L (8.4-10.2) mg/dL Total Bilirubin 0.70 (0.2-1.3) mg/dL AST 76 H (14-36) U/L ALT 151 H (0-35) U/L Alkaline Phosphatase 122 (38-126) U/L Serum Total Protein 6.2 L (6.3-8.2) g/dL Albumin 3.7 (3.5-5.0) g/dL Radiology Exams: Radiology Procedures Category Date Time Status ABDOMEN AND PELVIS W CONTRAST [CT] Stat Exams 07/12/25 22:00 Completed CHEST 1 VIEW (PORTABLE) Stat Exams 07/12/25 22:00 Completed Medications: Medications Generic Name Dose Route Start Last Admin Trade Name Freq PRN Reason Stop Dose Admin Acetaminophen 650 mg 07/13/25 08:39 07/13/25 20:52 Acetaminophen 325 Mg Tablet PO 08/12/25 08:38 650 mg Q4H PRN PRN Administration PAIN AND/OR FEVER Hydrocodone Bitart/Acetaminophen 1 tab 07/13/25 08:39 07/14/25 08:56 Hydrocodone/Apap 5/325 1 Tab Tablet PO 07/18/25 08:38 1 tab Q4H PRN PRN Administration PAIN Enoxaparin Sodium 40 mg 07/13/25 10:00 07/14/25 08:57 Enoxaparin Sodium 40 Mg/0.4 Ml Syringe SQ 08/12/25 09:59 40 mg DAILY JOEL Administration Sodium Chloride 1,000 mls @ 125 mls/hr 07/13/25 03:45 07/14/25 08:24 Sodium Chloride 0.9% 1000 Ml IV 08/12/25 03:44 125 mls/hr .Q8H JOEL Administration Metronidazole 500 mg in 100 mls @ 200 mls/hr 07/13/25 12:00 07/14/25 06:15 Flagyl 500 Mg Ivpb IV 08/12/25 11:59 200 mls/hr Q6HT JOEL Administration Levofloxacin/Dextrose 750 mg in 150 mls @ 100 mls/hr 07/14/25 10:00 07/14/25 08:59 Levofloxacin 750mg/150ml D5w IV 08/13/25 09:59 100 mls/hr Q24H10 JOEL Administration Insulin Human Lispro 0 unit 07/13/25 08:38 Insulin Lispro 1 Unit SQ 08/12/25 08:37 UD PRN HYPERGLYCEMIA Morphine Sulfate 1 mg 07/13/25 07:20 Morphine Sulfate 2 Mg/Ml Inj IV 07/18/25 07:19 Q4H PRN PRN SEVERE PAIN Ondansetron HCl 4 mg 07/13/25 08:39 07/14/25 08:21 Ondansetron Hcl 4 Mg/2 Ml Vial IV 08/12/25 08:38 4 mg Q6H PRN PRN Administration NAUSEA/VOMITING Discontinued Medications Generic Name Dose Route Start Last Admin Trade Name Rangel PRN Reason Stop Dose Admin Acetaminophen 975 mg 07/12/25 21:59 07/12/25 22:27 Acetaminophen 325 Mg Tablet PO 07/12/25 22:00 975 mg STAT STA Administration Acetaminophen Confirm 07/12/25 22:24 Acetaminophen 325 Mg Tablet Administered 07/12/25 22:25 Dose 975 mg .ROUTE .STK-MED ONE Diphenhydramine HCl 25 mg 07/12/25 22:20 07/12/25 22:28 Diphenhydramine Hcl 50 Mg/Ml Vial IV 07/12/25 22:21 25 mg STAT ONE Administration Diphenhydramine HCl Confirm 07/12/25 22:24 Diphenhydramine Hcl 50 Mg/Ml Vial Administered 07/12/25 22:25 Dose 50 mg .ROUTE .STK-MED ONE Sodium Chloride 1,000 mls @ 999 mls/hr 07/12/25 22:01 07/12/25 23:28 Sodium Chloride 0.9% 1000 Ml IV 07/12/25 23:01 Infused .Q1H1M STA Infusion Sodium Chloride Confirm 07/12/25 22:24 Sodium Chloride 0.9% 1000 Ml Administered 07/12/25 22:25 Dose 1,000 mls @ ud .ROUTE .STK-MED ONE Sodium Chloride 1,000 mls @ 999 mls/hr 07/13/25 00:29 07/13/25 01:33 Sodium Chloride 0.9% 1000 Ml IV 07/13/25 01:29 Infused .Q1H1M STA Infusion Ceftriaxone Sodium 1 gm in 100 mls @ 200 mls/hr 07/13/25 00:30 07/13/25 01:15 Rocephin 1 Gm / 100 Ml Nacl IV 07/13/25 00:59 Infused STAT ONE Infusion Sodium Chloride Confirm 07/13/25 00:32 Sodium Chloride 0.9% 1000 Ml Administered 07/13/25 00:33 Dose 1,000 mls @ ud .ROUTE .STK-MED ONE Ceftriaxone Sodium Confirm 07/13/25 00:32 Rocephin 1 Gm / 100 Ml Nacl Administered 07/13/25 00:33 Dose 1 gm in 100 mls @ ud IV .STK-MED ONE Piperacillin Sod/Tazobactam 100 mls @ 200 mls/hr 07/13/25 00:57 07/13/25 01:17 Sod 3.375 gm/ Sodium Chloride IV 07/13/25 01:26 200 mls/hr STAT STA 200 mls/hr Administration Sodium Chloride Confirm 07/13/25 01:13 Sodium Chloride 0.9% Administered 07/13/25 01:14 Dose 100 mls @ ud .ROUTE .STK-MED ONE Piperacillin Sod/Tazobactam 100 mls @ 200 mls/hr 07/13/25 06:00 07/13/25 05:15 Sod 3.375 gm/ Sodium Chloride IV 07/16/25 05:59 200 mls/hr Q6HT JOEL Administration Sodium Chloride Confirm 07/13/25 05:11 Sodium Chloride 0.9% Administered 07/13/25 05:12 Dose 100 mls @ ud .ROUTE .STK-MED ONE Levofloxacin/Dextrose 750 mg in 150 mls @ 100 mls/hr 07/13/25 09:27 07/13/25 10:05 Levofloxacin 750mg/150ml D5w IV 07/13/25 10:56 100 mls/hr STAT STA Administration Loperamide HCl 2 mg 07/13/25 04:20 07/13/25 04:24 Loperamide Hcl 2 Mg Capsule PO 07/13/25 04:21 Not Given STAT ONE Morphine Sulfate 4 mg 07/13/25 02:59 07/13/25 03:12 Morphine Sulfate 4 Mg/Ml Injection IV 07/18/25 02:58 4 mg Q4H PRN PRN Administration SEVERE PAIN Morphine Sulfate 1 mg 07/13/25 07:19 Morphine Sulfate 4 Mg/Ml Injection IV 07/18/25 02:58 Q4H PRN PRN SEVERE PAIN Ondansetron HCl 4 mg 07/12/25 22:20 07/12/25 22:28 Ondansetron Hcl 4 Mg/2 Ml Vial IV 07/12/25 22:21 4 mg STAT ONE Administration Ondansetron HCl Confirm 07/12/25 22:24 Ondansetron Hcl 4 Mg/2 Ml Vial Administered 07/12/25 22:25 Dose 4 mg .ROUTE .STK-MED ONE Piperacillin Sod/Tazobactam Sod Confirm 07/13/25 01:13 Piperacillin/Tazobactam Sodium 3.375 Gm Vial Administered 07/13/25 01:14 Dose 3.375 gm IV .STK-MED ONE Piperacillin Sod/Tazobactam Sod Confirm 07/13/25 05:10 Piperacillin/Tazobactam Sodium 3.375 Gm Vial Administered 07/13/25 05:11 Dose 3.375 gm IV .STK-MED ONE Multi-Disciplinary Progress Notes: Multi-Disciplinary Progress Notes 07/14/25 08:44 Case Management Note by Lindsey Mims S/W PATIENT. SHE CONTINUES TO DENY ANY NEW NEEDS AT TIME OF DC. SHE PLANS TO RETURN HOME TO HER PLOF WITH FAMILY AND FRIENDS TO HELP IF NEEDED. Initialized on 07/14/25 08:44 - END OF NOTE Assessment/Plan (1) Sepsis Current Visit: Yes Status: Acute Assessment & Plan: -Supported by fever/chills, leukocytosis, and CT imaging showing acute diverticulitis without perforation or abscess. -Continue levaquin/flagyl -IVF -clear liquid diet initially now NPO due to continued abd pain and dry heaves -Tele -CBC reviewed showing WBC at 14 -Blood cultures pending -Urine culture with NGTD -anti-emetics prn (2) Diverticulitis Current Visit: Yes Status: Acute Assessment & Plan: -see sepsis above Code(s): K57.92 - DVTRCLI OF INTEST, PART UNSP, W/O PERF OR ABSCESS W/O BLEED (3) DMII (diabetes mellitus, type 2) Current Visit: Yes Status: Acute Assessment & Plan: -accuchecks q4h while NPO -Monitor glucose inpatient; adjust regimen while NPO; use insulin sliding scale if needed; resume oral agents once tolerating diet. (4) HLD (hyperlipidemia) Current Visit: Yes Status: Acute Assessment & Plan: -Associated with hepatic steatosis. -Resume statin once LFTs improve and oral intake stable; monitor liver enzymes. Code(s): E78.5 - HYPERLIPIDEMIA, UNSPECIFIED (5) Nephrolithiasis Current Visit: Yes Status: Acute Assessment & Plan: -CT: resolved left ureteric stone, stable non-obstructing right nephrolithiasis. (6) Lesion of cervix Current Visit: Yes Status: Acute Assessment & Plan: -CT: bulky uterus with lobulated contour near fundus/posterior wall, hypodense area in cervix. Patient denies vaginal bleeding, discharge, or pelvic pain. -Defer pelvic ultrasound while NPO and acutely ill; monitor for bleeding or pain inpatient; arrange outpatient [facility]DLER referral and transvaginal ultrasound once stable Code(s): N88.9 - NONINFLAMMATORY DISORDER OF CERVIX UTERI, UNSPECIFIED (7) Abdominal pain Current Visit: No Status: Acute Assessment & Plan: see sepsis Code(s): R10.9 - UNSPECIFIED ABDOMINAL PAIN (8) Diverticulosis Current Visit: No Status: Acute Assessment & Plan: -Baseline condition, now with acute flare. -High-fiber diet and GI follow-up once recovered; patient education on recurrence risk. VTE: Lovenox PPI: Protonix Dispo: 1-2 days Code Status: Full code Plan of care time spent > 35 mins Code(s): K57.90 - DVRTCLOS OF INTEST, PART UNSP, W/O PERF OR ABSCESS W/O BLEED
[2025-07-14] MEDS: PROTONIX 40 MG IV IV SCH (11:27)
[2025-07-14] MEDS: MORPHINE SULFATE 2 MG INJ IV PRN (21:46)
[2025-07-15 05:38] LABS: BASOPHIL % 0.4 % (0.1-1.2); Basophil (Absolute #) 0.04 x10^3/uL (0.01-0.08); Eosinophil (Absolute #) 0.16 x10^3/uL (0.04-0.36); Hematocrit 40.5 % (34.1-44.9); Hemoglobin 13.1 g/dL (11.2-15.7); IMMATURE GRAN # 0.06 x10^3u/L (0.001-0.031); IMMATURE GRAN % 0.6 % (0.001-0.429); Lymphocyte (Absolute #) 1.49 x10^3/uL (1.18-3.74); Mean Corpuscular Hemoglobin 28.7 pg (25.6-32.2); Mean Corpuscular Hgb Concent. 32.3 g/dL (32.2-35.5); Monocyte (Absolute #) 0.62 x10^3/uL (0.24-0.86); NUCLEATED RBC # 0.00 x10^3u/L (0.00-0.012); NUCLEATED RBC % 0.0 % (0.00-0.2); Platelet Count 229 x10^3/uL (182-369); Red Blood Count 4.57 x10^6/uL (3.93-5.22); White Blood Count 10.1 x10^3/uL (3.98-10.04)
[2025-07-15 05:52] LABS: Calcium 8.3 mg/dL (8.4-10.2); Carbon Dioxide 23.0 mmol/L (22-30); Creatinine 1 0.6 mg/dL (0.52-1.04); EST GLOMERULAR FILTRATION RATE 105.3 ML/MIN; Glucose 78.0 mg/dL (74-106); Potassium 3.6 mmol/L (3.5-5.1); SGOT/AST 36.0 U/L (14-36); SGPT/ALT 98.0 U/L (0-35); Total Protein 6.4 g/dL (6.3-8.2)
--- NOTE | 2025-07-15 12:29 | PCM.NOTE ---
Date and Time: 07/15/25 1223 Subjective Assessment: Ms. Godoy is a 54-year-old female with a past medical history of diverticulosis, type 2 diabetes mellitus, hyperlipidemia, nephrolithiasis, and a recently diagnosed suspected celiac disease who presented to the emergency department with fever, chills, and abdominal pain. Over the past week she has experienced gradually worsening diffuse abdominal discomfort that has now progressed to severe intermittent abdominal pain, rated 10/10 at worst, associated with chills, nausea, vomiting, and loose stools. At the time of interview she continued to endorse left lower quadrant aching pain, rated 9/10, with tenderness to palpation, as well as nausea and dry heaves. She denied chest pain or dyspnea. Initial evaluation included CT of the abdomen and pelvis, which demonstrated colonic diverticulosis with acute diverticulitis involving the distal descending and proximal sigmoid colon without evidence of perforation or abscess. Imaging also showed resolution of a previously identified left distal ureteral stone with no obstructive uropathy, stable non-obstructing right-sided nephrolithiasis, hepatomegaly with diffuse hepatic steatosis, and uterine fibroid changes versus cervical hypodensity for which pelvic ultrasound was recommended OP. Portable chest X-ray showed only minimal right basilar atelectas is/scarring without acute cardiopulmonary findings. Laboratory evaluation on 07/14 revealed leukocytosis with WBC 14, mild hyponatremia with Na 134, and elevated transaminases (AST 76, ALT 151) that were down-trending. Temperature was noted at 99.9F overnight. 07/14: Patient continues to report ongoing abdominal discomfort, primarily localized to the left lower quadrant, described as a constant aching pain rated 9/10 in intensity. She endorses persistent nausea with intermittent dry heaves, with minimal relief from antiemetic therapy. She states she had chills overnight and notes her temperature was elevated to 99.9F. She denies chest pain, palpitations, or shortness of breath. No new urinary symptoms. Oral intake remains poor, tolerating only sips of clear liquids. 07/15: Met with patient bedside. Endorses improved abdominal pain with no nausea/vomiting overnight. Requesting to advance diet. Plan to advance diet today and see how she tolerates it, if pain improved and no n/v most likely can discharge home tomorrow. Denies fever,cough, sob, cp, GROSSMAN, dizziness, N/V/D. - Review of Systems Constitutional: No Symptoms Eyes: No Symptoms Ears, Nose, & Throat: No Symptoms Respiratory: No Symptoms Cardiac: No Symptoms Abdominal/Gastrointestinal: Abdominal Pain Genitourinary Symptoms: No Symptoms Objective Exam General Appearance: no apparent distress Neurologic Exam: alert, oriented x 3, cooperative Skin Exam: normal color Eye Exam: PERRL Ears, Nose, Throat Exam: normal ENT inspection Neck Exam: normal inspection Respiratory Exam: normal breath sounds, lungs clear Cardiovascular Exam: regular rate/rhythm, normal heart sounds Gastrointestinal/Abdomen Exam: soft, normal bowel sounds, tenderness (TTP LLQ) Extremity Exam: normal inspection Back Exam: normal inspection Pelvic Exam: deferred Rectal Exam: deferred Objective Data Vital Signs: Vital Signs - 24 hr Temp Pulse Resp BP Pulse Ox 07/15/25 11:00 98.2 F 70 18 124/66 99 07/15/25 07:00 98.6 F 73 18 123/76 97 07/15/25 03:00 97.9 F 71 18 135/75 95 07/14/25 23:00 98.8 F 82 18 132/65 94 L 07/14/25 19:00 99.7 F 80 16 127/60 94 L 07/14/25 15:49 98.5 F 75 16 129/66 97 Pain Assessment - Last Documented Pain Intensity 0 Pain Scale Used 0-10 Pain Scale Intake and Output: Intake & Output 07/13/25 07/14/25 07/15/25 07/16/25 11:59 11:59 11:59 11:59 Intake Total 240 3691 3256 Output Total 3800 Balance 240 3691 -544 Weight 100.8 kg Lab Results: Lab Results-Last 24 Hours 07/14/25 07/14/25 07/15/25 Range/Units 16:10 21:41 03:08 WBC (3.98-10.04) x10^3/uL RBC (3.93-5.22) x10^6/uL Hgb (11.2-15.7) g/dL Hct (34.1-44.9) % MCV (79.4-94.8) fL MCH (25.6-32.2) pg MCHC (32.2-35.5) g/dL RDW (11.7-14.4) % Plt Count (182-369) x10^3/uL MPV (9.4-12.3) fL Gran % (34.0-71.1) % Immature Gran % (Auto) (0.001-0.429) % Nucleat RBC Rel Count (0.00-0.2) % Eos # (Auto) (0.04-0.36) x10^3/uL Immature Gran # (Auto) (0.001-0.031) x10^3u/L Absolute Lymphs (auto) (1.18-3.74) x10^3/uL Absolute Monos (auto) (0.24-0.86) x10^3/uL Absolute Nucleated RBC (0.00-0.012) x10^3u/L Lymphocytes % (19.3-51.7) % Monocytes % (4.7-12.5) % Eosinophils % (0.7-5.8) % Basophils % (0.1-1.2) % Absolute Granulocytes (1.56-6.13) x10^3/uL Basophils # (0.01-0.08) x10^3/uL Sodium (135-145) mmol/L Potassium (3.5-5.1) mmol/L Chloride (98-107) mmol/L Carbon Dioxide (22-30) mmol/L Anion Gap (5-15) MEQ/L BUN (7-17) mg/dL Creatinine (0.52-1.04) mg/dL Estimated GFR ML/MIN Glucose (74-106) mg/dL POC Glucometer 85 89 81 (74 to 106) mg/dL Calcium (8.4-10.2) mg/dL Magnesium (1.6-2.3) mg/dL Total Bilirubin (0.2-1.3) mg/dL AST (14-36) U/L ALT (0-35) U/L Alkaline Phosphatase (38-126) U/L Serum Total Protein (6.3-8.2) g/dL Albumin (3.5-5.0) g/dL 07/15/25 07/15/25 07/15/25 Range/Units 05:43 05:43 05:43 WBC 10.1 H (3.98-10.04) x10^3/uL RBC 4.57 (3.93-5.22) x10^6/uL Hgb 13.1 (11.2-15.7) g/dL Hct 40.5 (34.1-44.9) % MCV 88.6 (79.4-94.8) fL MCH 28.7 (25.6-32.2) pg MCHC 32.3 (32.2-35.5) g/dL RDW 13.2 (11.7-14.4) % Plt Count 229 (182-369) x10^3/uL MPV 9.8 (9.4-12.3) fL Gran % 76.5 H (34.0-71.1) % Immature Gran % (Auto) 0.6 H (0.001-0.429) % Nucleat RBC Rel Count 0.0 (0.00-0.2) % Eos # (Auto) 0.16 (0.04-0.36) x10^3/uL Immature Gran # (Auto) 0.06 H (0.001-0.031) x10^3u/L Absolute Lymphs (auto) 1.49 (1.18-3.74) x10^3/uL Absolute Monos (auto) 0.62 (0.24-0.86) x10^3/uL Absolute Nucleated RBC 0.00 (0.00-0.012) x10^3u/L Lymphocytes % 14.8 L (19.3-51.7) % Monocytes % 6.1 (4.7-12.5) % Eosinophils % 1.6 (0.7-5.8) % Basophils % 0.4 (0.1-1.2) % Absolute Granulocytes 7.73 H (1.56-6.13) x10^3/uL Basophils # 0.04 (0.01-0.08) x10^3/uL Sodium 138 (135-145) mmol/L Potassium 3.6 (3.5-5.1) mmol/L Chloride 106 (98-107) mmol/L Carbon Dioxide 23 (22-30) mmol/L Anion Gap 13.0 (5-15) MEQ/L BUN 6 L (7-17) mg/dL Creatinine 0.60 (0.52-1.04) mg/dL Estimated GFR 105.3 ML/MIN Glucose 78 (74-106) mg/dL POC Glucometer (74 to 106) mg/dL Calcium 8.3 L (8.4-10.2) mg/dL Magnesium 2.2 (1.6-2.3) mg/dL Total Bilirubin 0.60 (0.2-1.3) mg/dL AST 36 (14-36) U/L ALT 98 H (0-35) U/L Alkaline Phosphatase 116 (38-126) U/L Serum Total Protein 6.4 (6.3-8.2) g/dL Albumin 3.7 (3.5-5.0) g/dL 07/15/25 07/15/25 Range/Units 06:42 11:33 WBC (3.98-10.04) x10^3/uL RBC (3.93-5.22) x10^6/uL Hgb (11.2-15.7) g/dL Hct (34.1-44.9) % MCV (79.4-94.8) fL MCH (25.6-32.2) pg MCHC (32.2-35.5) g/dL RDW (11.7-14.4) % Plt Count (182-369) x10^3/uL MPV (9.4-12.3) fL Gran % (34.0-71.1) % Immature Gran % (Auto) (0.001-0.429) % Nucleat RBC Rel Count (0.00-0.2) % Eos # (Auto) (0.04-0.36) x10^3/uL Immature Gran # (Auto) (0.001-0.031) x10^3u/L Absolute Lymphs (auto) (1.18-3.74) x10^3/uL Absolute Monos (auto) (0.24-0.86) x10^3/uL Absolute Nucleated RBC (0.00-0.012) x10^3u/L Lymphocytes % (19.3-51.7) % Monocytes % (4.7-12.5) % Eosinophils % (0.7-5.8) % Basophils % (0.1-1.2) % Absolute Granulocytes (1.56-6.13) x10^3/uL Basophils # (0.01-0.08) x10^3/uL Sodium (135-145) mmol/L Potassium (3.5-5.1) mmol/L Chloride (98-107) mmol/L Carbon Dioxide (22-30) mmol/L Anion Gap (5-15) MEQ/L BUN (7-17) mg/dL Creatinine (0.52-1.04) mg/dL Estimated GFR ML/MIN Glucose (74-106) mg/dL POC Glucometer 82 94 (74 to 106) mg/dL Calcium (8.4-10.2) mg/dL Magnesium (1.6-2.3) mg/dL Total Bilirubin (0.2-1.3) mg/dL AST (14-36) U/L ALT (0-35) U/L Alkaline Phosphatase (38-126) U/L Serum Total Protein (6.3-8.2) g/dL Albumin (3.5-5.0) g/dL Medications: Medications Generic Name Dose Route Start Last Admin Trade Name Freq PRN Reason Stop Dose Admin Acetaminophen 650 mg 07/13/25 08:39 07/13/25 20:52 Acetaminophen 325 Mg Tablet PO 08/12/25 08:38 650 mg Q4H PRN PRN Administration PAIN AND/OR FEVER Hydrocodone Bitart/Acetaminophen 1 tab 07/13/25 08:39 07/15/25 09:13 Hydrocodone/Apap 5/325 1 Tab Tablet PO 07/18/25 08:38 1 tab Q4H PRN PRN Administration PAIN Enoxaparin Sodium 40 mg 07/13/25 10:00 07/15/25 09:08 Enoxaparin Sodium 40 Mg/0.4 Ml Syringe SQ 08/12/25 09:59 40 mg DAILY JOEL Administration Sodium Chloride 1,000 mls @ 125 mls/hr 07/13/25 03:45 07/15/25 04:16 Sodium Chloride 0.9% 1000 Ml IV 08/12/25 03:44 125 mls/hr .Q8H JOEL Administration Metronidazole 500 mg in 100 mls @ 200 mls/hr 07/13/25 12:00 07/15/25 11:53 Flagyl 500 Mg Ivpb IV 08/12/25 11:59 200 mls/hr Q6HT JOEL Administration Levofloxacin/Dextrose 750 mg in 150 mls @ 100 mls/hr 07/14/25 10:00 07/15/25 09:08 Levofloxacin 750mg/150ml D5w IV 08/13/25 09:59 100 mls/hr Q24H10 JOEL Administration Insulin Human Lispro 0 unit 07/13/25 08:38 Insulin Lispro 1 Unit SQ 08/12/25 08:37 UD PRN HYPERGLYCEMIA Morphine Sulfate 1 mg 07/13/25 07:20 07/14/25 21:46 Morphine Sulfate 2 Mg/Ml Inj IV 07/18/25 07:19 1 mg Q4H PRN PRN Administration SEVERE PAIN Ondansetron HCl 4 mg 07/13/25 08:39 07/14/25 08:21 Ondansetron Hcl 4 Mg/2 Ml Vial IV 08/12/25 08:38 4 mg Q6H PRN PRN Administration NAUSEA/VOMITING Pantoprazole Sodium 40 mg 07/14/25 10:30 07/15/25 09:06 Pantoprazole 40 Mg Vial IV 08/13/25 10:29 40 mg Q24H10 JOEL Administration Discontinued Medications Generic Name Dose Route Start Last Admin Trade Name Freq PRN Reason Stop Dose Admin Acetaminophen 975 mg 07/12/25 21:59 07/12/25 22:27 Acetaminophen 325 Mg Tablet PO 07/12/25 22:00 975 mg STAT STA Administration Acetaminophen Confirm 07/12/25 22:24 Acetaminophen 325 Mg Tablet Administered 07/12/25 22:25 Dose 975 mg .ROUTE .STK-MED ONE Diphenhydramine HCl 25 mg 07/12/25 22:20 07/12/25 22:28 Diphenhydramine Hcl 50 Mg/Ml Vial IV 07/12/25 22:21 25 mg STAT ONE Administration Diphenhydramine HCl Confirm 07/12/25 22:24 Diphenhydramine Hcl 50 Mg/Ml Vial Administered 07/12/25 22:25 Dose 50 mg .ROUTE .STK-MED ONE Sodium Chloride 1,000 mls @ 999 mls/hr 07/12/25 22:01 07/12/25 23:28 Sodium Chloride 0.9% 1000 Ml IV 07/12/25 23:01 Infused .Q1H1M STA Infusion Sodium Chloride Confirm 07/12/25 22:24 Sodium Chloride 0.9% 1000 Ml Administered 07/12/25 22:25 Dose 1,000 mls @ ud .ROUTE .STK-MED ONE Sodium Chloride 1,000 mls @ 999 mls/hr 07/13/25 00:29 07/13/25 01:33 Sodium Chloride 0.9% 1000 Ml IV 07/13/25 01:29 Infused .Q1H1M STA Infusion Ceftriaxone Sodium 1 gm in 100 mls @ 200 mls/hr 07/13/25 00:30 07/13/25 01:15 Rocephin 1 Gm / 100 Ml Nacl IV 07/13/25 00:59 Infused STAT ONE Infusion Sodium Chloride Confirm 07/13/25 00:32 Sodium Chloride 0.9% 1000 Ml Administered 07/13/25 00:33 Dose 1,000 mls @ ud .ROUTE .STK-MED ONE Ceftriaxone Sodium Confirm 07/13/25 00:32 Rocephin 1 Gm / 100 Ml Nacl Administered 07/13/25 00:33 Dose 1 gm in 100 mls @ ud IV .STK-MED ONE Piperacillin Sod/Tazobactam 100 mls @ 200 mls/hr 07/13/25 00:57 07/13/25 01:17 Sod 3.375 gm/ Sodium Chloride IV 07/13/25 01:26 200 mls/hr STAT STA 200 mls/hr Administration Sodium Chloride Confirm 07/13/25 01:13 Sodium Chloride 0.9% Administered 07/13/25 01:14 Dose 100 mls @ ud .ROUTE .STK-MED ONE Piperacillin Sod/Tazobactam 100 mls @ 200 mls/hr 07/13/25 06:00 07/13/25 05:15 Sod 3.375 gm/ Sodium Chloride IV 07/16/25 05:59 200 mls/hr Q6HT JOEL Administration Sodium Chloride Confirm 07/13/25 05:11 Sodium Chloride 0.9% Administered 07/13/25 05:12 Dose 100 mls @ ud .ROUTE .STK-MED ONE Levofloxacin/Dextrose 750 mg in 150 mls @ 100 mls/hr 07/13/25 09:27 07/13/25 10:05 Levofloxacin 750mg/150ml D5w IV 07/13/25 10:56 100 mls/hr STAT STA Administration Loperamide HCl 2 mg 07/13/25 04:20 07/13/25 04:24 Loperamide Hcl 2 Mg Capsule PO 07/13/25 04:21 Not Given STAT ONE Morphine Sulfate 4 mg 07/13/25 02:59 07/13/25 03:12 Morphine Sulfate 4 Mg/Ml Injection IV 07/18/25 02:58 4 mg Q4H PRN PRN Administration SEVERE PAIN Morphine Sulfate 1 mg 07/13/25 07:19 Morphine Sulfate 4 Mg/Ml Injection IV 07/18/25 02:58 Q4H PRN PRN SEVERE PAIN Ondansetron HCl 4 mg 07/12/25 22:20 07/12/25 22:28 Ondansetron Hcl 4 Mg/2 Ml Vial IV 07/12/25 22:21 4 mg STAT ONE Administration Ondansetron HCl Confirm 07/12/25 22:24 Ondansetron Hcl 4 Mg/2 Ml Vial Administered 07/12/25 22:25 Dose 4 mg .ROUTE .STK-MED ONE Piperacillin Sod/Tazobactam Sod Confirm 07/13/25 01:13 Piperacillin/Tazobactam Sodium 3.375 Gm Vial Administered 07/13/25 01:14 Dose 3.375 gm IV .STK-MED ONE Piperacillin Sod/Tazobactam Sod Confirm 07/13/25 05:10 Piperacillin/Tazobactam Sodium 3.375 Gm Vial Administered 07/13/25 05:11 Dose 3.375 gm IV .STK-MED ONE Multi-Disciplinary Progress Notes: Multi-Disciplinary Progress Notes 07/15/25 10:40 (created 07/15/25 12:13) Case Management Note by Kamille Deras S/W PATIENT- SHE CONTINUES TO DENY ANY NEW NEEDS AT TIME OF DC. SHE PLANS TO RETURN HOME TO HER PLF AT TIME OF DC Initialized on 07/15/25 12:13 - END OF NOTE Assessment/Plan (1) Sepsis Current Visit: Yes Status: Acute Assessment & Plan: -Supported by fever/chills, leukocytosis, and CT imaging showing acute diverticulitis without perforation or abscess. -Continue levaquin/flagyl -IVF -clear liquid diet initially now NPO due to continued abd pain and dry heaves -Tele -CBC reviewed showing WBC at 14 -Blood cultures pending -Urine culture with NGTD -anti-emetics prn 07/15: -WBC improved now at 10.1 -No fever overnight -Continue levquin/flagyl -ADAT (2) Diverticulitis Current Visit: Yes Status: Acute Assessment & Plan: -see sepsis above Code(s): K57.92 - DVTRCLI OF INTEST, PART UNSP, W/O PERF OR ABSCESS W/O BLEED (3) DMII (diabetes mellitus, type 2) Current Visit: Yes Status: Acute Assessment & Plan: -accuchecks q4h while NPO -Monitor glucose inpatient; adjust regimen while NPO; use insulin sliding scale if needed; resume oral agents once tolerating diet. (4) HLD (hyperlipidemia) Current Visit: Yes Status: Acute Assessment & Plan: -Associated with hepatic steatosis. -Resume statin once LFTs improve and oral intake stable; monitor liver enzymes. Code(s): E78.5 - HYPERLIPIDEMIA, UNSPECIFIED (5) Nephrolithiasis Current Visit: Yes Status: Acute Assessment & Plan: -CT: resolved left ureteric stone, stable non-obstructing right nephrolithiasis. (6) Lesion of cervix Current Visit: Yes Status: Acute Assessment & Plan: -CT: bulky uterus with lobulated contour near fundus/posterior wall, hypodense area in cervix. Patient denies vaginal bleeding, discharge, or pelvic pain. -Defer pelvic ultrasound while NPO and acutely ill; monitor for bleeding or pain inpatient; arrange outpatient [employer] referral and transvaginal ultrasound once stable Code(s): N88.9 - NONINFLAMMATORY DISORDER OF CERVIX UTERI, UNSPECIFIED (7) Abdominal pain Current Visit: No Status: Acute Assessment & Plan: see sepsis Code(s): R10.9 - UNSPECIFIED ABDOMINAL PAIN (8) Diverticulosis Current Visit: No Status: Acute Assessment & Plan: -Baseline condition, now with acute flare. -High-fiber diet and GI follow-up once recovered; patient education on recurrence risk. VTE: Lovenox PPI: Protonix Dispo: 1-2 days Code Status: Full code Plan of care time spent > 35 mins (2) Diverticulitis Current Visit: Yes Status: Acute Code(s): K57.92 - DVTRCLI OF INTEST, PART UNSP, W/O PERF OR ABSCESS W/O BLEED (3) DMII (diabetes mellitus, type 2) Current Visit: Yes Status: Acute (4) HLD (hyperlipidemia) Current Visit: Yes Status: Acute Code(s): E78.5 - HYPERLIPIDEMIA, UNSPECIFIED (5) Nephrolithiasis Current Visit: Yes Status: Acute (6) Lesion of cervix Current Visit: Yes Status: Acute Code(s): N88.9 - NONINFLAMMATORY DISORDER OF CERVIX UTERI, UNSPECIFIED (7) Abdominal pain Current Visit: No Status: Acute Code(s): R10.9 - UNSPECIFIED ABDOMINAL PAIN (8) Diverticulosis Current Visit: No Status: Acute Code(s): K57.90 - DVRTCLOS OF INTEST, PART UNSP, W/O PERF OR ABSCESS W/O BLEED
[2025-07-15] MEDS: ABREVA TP SCH (17:26)
[2025-07-16 05:07] LABS: BASOPHIL % 0.6 % (0.1-1.2); Basophil (Absolute #) 0.04 x10^3/uL (0.01-0.08); Eosinophil (Absolute #) 0.16 x10^3/uL (0.04-0.36); Hematocrit 41.1 % (34.1-44.9); Hemoglobin 13.5 g/dL (11.2-15.7); IMMATURE GRAN # 0.05 x10^3u/L (0.001-0.031); IMMATURE GRAN % 0.7 % (0.001-0.429); Lymphocyte (Absolute #) 1.24 x10^3/uL (1.18-3.74); Mean Corpuscular Hemoglobin 28.0 pg (25.6-32.2); Mean Corpuscular Hgb Concent. 32.8 g/dL (32.2-35.5); Monocyte (Absolute #) 0.47 x10^3/uL (0.24-0.86); NUCLEATED RBC # 0.00 x10^3u/L (0.00-0.012); NUCLEATED RBC % 0.0 % (0.00-0.2); Platelet Count 268 x10^3/uL (182-369); Red Blood Count 4.83 x10^6/uL (3.93-5.22); White Blood Count 7.1 x10^3/uL (3.98-10.04)
[2025-07-16 05:45] LABS: Calcium 8.7 mg/dL (8.4-10.2); Carbon Dioxide 23.0 mmol/L (22-30); Creatinine 1 0.58 mg/dL (0.52-1.04); EST GLOMERULAR FILTRATION RATE 106.1 ML/MIN; Glucose 105.0 mg/dL (74-106); Potassium 4.0 mmol/L (3.5-5.1); SGOT/AST 29.0 U/L (14-36); SGPT/ALT 74.0 U/L (0-35); Total Protein 6.6 g/dL (6.3-8.2)
[2025-07-16 07:32] VITALS: RESP 16
--- NOTE | 2025-07-16 10:37 | PCM.DS ---
Discharge Summary Date of Admission: 07/13/25 01:42 Date of Discharge: 07/16/25 Admitting Physician: DEENA GONZALEZ MD Primary Care Provider: LIZZETH MORROW Allergies Allergies gluten Allergy (Verified 07/12/25 23:14) ibuprofen Allergy (Verified 07/12/25 23:14) budesonide Adverse Reaction (Verified 10/29/24 00:52) Hospital Summary - Hospital Course Hospital Course: Ms. Godoy is a 54-year-old female with past medical history of diverticulosis, type 2 diabetes mellitus, hyperlipidemia, nephrolithiasis, and suspected celiac disease who presented with fever, chills, nausea, and severe abdominal pain. Initial CT abdomen/pelvis revealed acute diverticulitis of the distal descending and proximal sigmoid colon without perforation or abscess, in the setting of diffuse colonic diverticulosis. Additional findings included resolution of a previously noted left distal ureteral stone, stable right non-obstructing nephrolithiasis, hepatomegaly with diffuse steatosis, and a hypodense lesion at the cervix for which outpatient ultrasound was recommended. Portable chest X-ray showed only minimal basilar atelectasis without acute pulmonary disease. Laboratory evaluation on admission (07/14) was notable for leukocytosis (WBC 14), hyponatremia (Na 134), and transaminitis (AST 76, ALT 151), with subsequent down-trend and normalization by discharge (WBC 7.1 on 07/16). Throughout hospitalization she was managed with IV fluids, antiemetics, bowel rest, and broad-spectrum antibiotics (levofloxacin and metronidazole). By 07/15 she reported improvement in abdominal pain, resolution of nausea/vomiting, normalization of leukocytosis, and tolerance of advancing diet. At discharge she was afebrile, tolerating oral intake, with stable vitals and normalized labs. She will complete a 10-day total antibiotic course (7 days remaining) and follow up outpatient with [facility] for cervical imaging abnormalities. Fiber supplementation (Metamucil) was initiated, and she was counseled on high-fiber diet, recurrence risk, and close GI follow-up. Discharge Note New Diagnosis:Diverticulitis New Medications: Levaquin 750mg daily x 7 days/ Flagyl 500mg TID x 7 days Follow Up: PCP/GI I spent 35 minutes [id number] with the patient on the day of discharge performing discharge exam, discussing hospital stay and discharge instructions with patient and caregivers, preparation of discharge records, prescriptions & referral forms and addressing any questions/concerns the patient had as documented above. - Vitals & Intake/Output Vital Signs: Vital Signs Temperature 97.7 F 07/16/25 07:30 Pulse Rate 67 07/16/25 07:30 Respiratory Rate 16 07/16/25 07:30 Blood Pressure 141/80 07/16/25 07:30 O2 Sat by Pulse Oximetry 96 07/16/25 07:30 Intake & Output: Intake & Output 07/13/25 07/14/25 07/15/25 07/16/25 11:59 11:59 11:59 11:59 Intake Total 240 3691 3256 2767 Output Total 3800 1000 Balance 240 3691 -544 1767 Weight 100.8 kg - Lab Result Diagrams: 07/16/25 04:49 07/16/25 04:49 Lab Results-Last 24 Hrs: Lab Results-Last 24 Hours 07/15/25 07/15/25 07/15/25 Range/Units 11:33 15:46 22:08 WBC (3.98-10.04) x10^3/uL RBC (3.93-5.22) x10^6/uL Hgb (11.2-15.7) g/dL Hct (34.1-44.9) % MCV (79.4-94.8) fL MCH (25.6-32.2) pg MCHC (32.2-35.5) g/dL RDW (11.7-14.4) % Plt Count (182-369) x10^3/uL MPV (9.4-12.3) fL Gran % (34.0-71.1) % Immature Gran % (Auto) (0.001-0.429) % Nucleat RBC Rel Count (0.00-0.2) % Eos # (Auto) (0.04-0.36) x10^3/uL Immature Gran # (Auto) (0.001-0.031) x10^3u/L Absolute Lymphs (auto) (1.18-3.74) x10^3/uL Absolute Monos (auto) (0.24-0.86) x10^3/uL Absolute Nucleated RBC (0.00-0.012) x10^3u/L Lymphocytes % (19.3-51.7) % Monocytes % (4.7-12.5) % Eosinophils % (0.7-5.8) % Basophils % (0.1-1.2) % Absolute Granulocytes (1.56-6.13) x10^3/uL Basophils # (0.01-0.08) x10^3/uL Sodium (135-145) mmol/L Potassium (3.5-5.1) mmol/L Chloride (98-107) mmol/L Carbon Dioxide (22-30) mmol/L Anion Gap (5-15) MEQ/L BUN (7-17) mg/dL Creatinine (0.52-1.04) mg/dL Estimated GFR ML/MIN Glucose (74-106) mg/dL POC Glucometer 94 94 97 (74 to 106) mg/dL Calcium (8.4-10.2) mg/dL Total Bilirubin (0.2-1.3) mg/dL AST (14-36) U/L ALT (0-35) U/L Alkaline Phosphatase (38-126) U/L Serum Total Protein (6.3-8.2) g/dL Albumin (3.5-5.0) g/dL 07/16/25 07/16/25 07/16/25 Range/Units 04:49 04:49 07:04 WBC 7.1 (3.98-10.04) x10^3/uL RBC 4.83 (3.93-5.22) x10^6/uL Hgb 13.5 (11.2-15.7) g/dL Hct 41.1 (34.1-44.9) % MCV 85.1 (79.4-94.8) fL MCH 28.0 (25.6-32.2) pg MCHC 32.8 (32.2-35.5) g/dL RDW 13.4 (11.7-14.4) % Plt Count 268 (182-369) x10^3/uL MPV 9.8 (9.4-12.3) fL Gran % 72.3 H (34.0-71.1) % Immature Gran % (Auto) 0.7 H (0.001-0.429) % Nucleat RBC Rel Count 0.0 (0.00-0.2) % Eos # (Auto) 0.16 (0.04-0.36) x10^3/uL Immature Gran # (Auto) 0.05 H (0.001-0.031) x10^3u/L Absolute Lymphs (auto) 1.24 (1.18-3.74) x10^3/uL Absolute Monos (auto) 0.47 (0.24-0.86) x10^3/uL Absolute Nucleated RBC 0.00 (0.00-0.012) x10^3u/L Lymphocytes % 17.5 L (19.3-51.7) % Monocytes % 6.6 (4.7-12.5) % Eosinophils % 2.3 (0.7-5.8) % Basophils % 0.6 (0.1-1.2) % Absolute Granulocytes 5.13 (1.56-6.13) x10^3/uL Basophils # 0.04 (0.01-0.08) x10^3/uL Sodium 137 (135-145) mmol/L Potassium 4.0 (3.5-5.1) mmol/L Chloride 107 (98-107) mmol/L Carbon Dioxide 23 (22-30) mmol/L Anion Gap 11.7 (5-15) MEQ/L BUN 6 L (7-17) mg/dL Creatinine 0.58 (0.52-1.04) mg/dL Estimated GFR 106.1 ML/MIN Glucose 105 (74-106) mg/dL POC Glucometer 102 (74 to 106) mg/dL Calcium 8.7 (8.4-10.2) mg/dL Total Bilirubin 0.50 (0.2-1.3) mg/dL AST 29 (14-36) U/L ALT 74 H (0-35) U/L Alkaline Phosphatase 116 (38-126) U/L Serum Total Protein 6.6 (6.3-8.2) g/dL Albumin 3.9 (3.5-5.0) g/dL Micro Results-Entire Visit: Microbiology 07/13/25 00:45 Blood Culture - Preliminary Blood 07/13/25 00:45 Blood Culture - Preliminary Blood 07/12/25 23:04 Urine Culture - Final Urine, Void <10K NORMAL SKIN RITA PROBABLE SKIN CONTAMINANT Accuchecks Date 07/16/25 Date 07/15/25 Time 07:30 Time 22:08 Discharge Exam General Appearance: no apparent distress Neurologic Exam: alert, oriented x 3, cooperative Eye Exam: PERRL Ears, Nose, Throat Exam: normal ENT inspection Neck Exam: normal inspection Respiratory Exam: normal breath sounds, lungs clear Cardiovascular Exam: regular rate/rhythm, normal heart sounds Gastrointestinal/Abdomen Exam: soft, normal bowel sounds Pelvic Exam: deferred Rectal Exam: deferred Back Exam: normal inspection Extremity Exam: normal inspection Skin Exam: normal color Final Diagnosis/Problem List - Final Discharge Diagnosis/Problem (1) Sepsis Current Visit: Yes Status: Acute Assessment & Plan: Supported by leukocytosis, fever/chills, abdominal pain, and CT confirmation of diverticulitis without perforation/abscess. Responded to IV antibiotics and fluids with normalization of labs (WBC 14 -7.1). Blood cultures showed no growth; urine culture negative. Discharged stable on oral levofloxacin 750 mg daily + metronidazole 500 mg TID to complete 10 days (7 days remaining). (2) Diverticulitis Current Visit: Yes Status: Acute Assessment & Plan: Imaging confirmed acute diverticulitis without complications. Improved with conservative management and antibiotics. Initiate fiber supplement once stable, outpatient GI follow-up for recurrence prevention. Code(s): K57.92 - DVTRCLI OF INTEST, PART UNSP, W/O PERF OR ABSCESS W/O BLEED (3) DMII (diabetes mellitus, type 2) Current Visit: Yes Status: Acute Assessment & Plan: Now tolerating diet; will resume outpatient oral antihyperglycemics. Recommend continued glycemic control monitoring. (4) HLD (hyperlipidemia) Current Visit: Yes Status: Acute Assessment & Plan: CT revealed hepatomegaly and fatty liver. Statin was held during transaminitis (AST/ALT peaked 76/151). Outpatient plan: resume statin once LFTs fully normalize. Code(s): E78.5 - HYPERLIPIDEMIA, UNSPECIFIED (5) Nephrolithiasis Current Visit: Yes Status: Acute Assessment & Plan: CT showed resolution of prior left distal ureteral stone; stable right non- obstructing nephrolithiasis. No acute intervention required. Encourage hydration; outpatient urology PRN for recurrence. (6) Lesion of cervix Current Visit: Yes Status: Acute Assessment & Plan: Imaging noted bulky uterus with lobulated contour and hypodense cervical area. Patient denies vaginal bleeding, discharge, or pelvic pain. Outpatient referral to [facility] for pelvic/transvaginal ultrasound. Code(s): N88.9 - NONINFLAMMATORY DISORDER OF CERVIX UTERI, UNSPECIFIED (7) Abdominal pain Current Visit: No Status: Acute Assessment & Plan: see diverticulitis Code(s): R10.9 - UNSPECIFIED ABDOMINAL PAIN (8) Diverticulosis Current Visit: No Status: Acute Assessment & Plan: Known history with acute flare this admission. Discharge counseling on high-fiber diet, daily Metamucil, hydration, and GI follow-up. Levofloxacin 750 mg PO daily (7 days remaining to complete 10-day course). Metronidazole 500 mg PO TID (7 days remaining to complete 10-day course). Metamucil (psyllium) nightly for bowel regulation. Resume home medications as tolerated (oral antihyperglycemics, statin ). Code(s): K57.90 - DVRTCLOS OF INTEST, PART UNSP, W/O PERF OR ABSCESS W/O BLEED - Discharge Discharge Date: 07/16/25 Disposition: Home, Self-Care Condition: Fair Prescriptions: New Metronidazole 500 mg [Flagyl 500 MG] 500 mg PO TID 7 Days #21 tablet levoFLOXacin [Levofloxacin] 750 mg PO DAILY 7 Days #7 tablet Continue Omeprazole 1 tab PO DAILY Mesalamine 3 tab PO DAILY Hydrocodone/APAP 5/325 [[place] 5/325 mg] 1 each PO Q6H PRN PRN 3 Days #10 tablet MDD 4 PRN Reason: Pain Tirzepatide [Mounjaro] 5 mg SQ WEEKLY hydroCHLOROthiazide [Hydrochlorothiazide] 12.5 mg PO DAILY Metformin HCl 500 mg [Glucophage 500 MG] 500 mg PO BIDWM Discontinued Ketorolac Trometh 10 mg Tab [TORAdol 10 MG TABLET] 10 mg PO TID 5 Days #15 tablet Instructions: Diverticulitis - Discharge instructions Follow up with: KE WARNER FNP [NON-STAFF PHY W/O PRIVILEGES, UNKNOWN] - 10/28/25 11:15 am LIZZETH MORROW NP [Primary Care Provider, [facility]] - 07/22/25 10:00 am
[2025-07-16 11:44] VITALS: BP 141/86; PULSE 72; TEMP 97.9; O2SAT 94
== END 2025-07-16 13:05 | disposition home or self-care (01) ==
LOC: ED 21:47 → MED SURG 07-13 01:42
PROVIDERS: ADMIT Internal Medicine; ATTEND Internal Medicine
DX: A41.9 Sepsis, unspecified organism (principal); K57.92 Diverticulitis of intestine, part unspecified, without perforation or abscess without bleeding; E11.9 Type 2 diabetes mellitus without complications; E78.5 Hyperlipidemia, unspecified; N20.0 Calculus of kidney; N88.9 Noninflammatory disorder of cervix uteri, unspecified; R10.9 Unspecified abdominal pain; K57.90 Diverticulosis of intestine, part unspecified, without perforation or abscess without bleeding; Z79.899 Other long term (current) drug therapy
CPT/HCPCS: 36415; 71045; 74177; 80053; 81001; 82947; 83036; 83605; 83735; 85025; 86308; 87040; 87086; 87637; 87651; 96360; 99285; Q3014